=== PATIENT | male | born 1955 | race American Indian/Alaskan Native ===

== ENCOUNTER 2016-12-30 16:03 | Inpatient (IN) | payer BC, OTHER ==
[2016-12-30 17:07] LABS: Hematocrit 30.1 % (35.5-45.6); Hemoglobin 9.8 gm/dl (11.8-15.2); Mean Corpuscular HGB Conc 33 % (32-34); Mean Corpuscular Hemoglobin 27 pg (28-32); Mean Corpuscular Volume 84 fl (84-94); Platelet Count 259 K/mm3 (140-440); Red Blood Count 3.61 M/mm3 (3.65-5.03); Red Cell Distribution Width 17.4 % (13.2-15.2)
[2016-12-30 17:14] LABS: INR 1.2 (0.87-1.13); Partial Thromboplastin Time 32.6 Sec. (24.2-36.6)
--- NOTE | 2016-12-30 17:20 | Cat Scan Report ---
FINAL REPORT EXAM: CT HEAD/BRAIN WO CON HISTORY: neuro deficits \T\lt; 6hrs or sx present upon awakening TECHNIQUE: Standard unenhanced CT of the head at 5.0 millimeter axial increments PRIORS: None. FINDINGS: The ventricular system is normal in size and configuration. There is no evidence for parenchymal volume loss. There is no evidence for mass lesion, mass effect, midline shift, acute intracranial hemorrhage, or acute ischemia/ infarction. Visualized paranasal sinuses are clear. IMPRESSION: Negative CT of the head. No acute intracranial process noted.
[2016-12-30 17:25] LABS: BUN/Creatinine Ratio 16.36; Calcium 9.6 mg/dL (8.4-10.2); Chloride 98.5 mmol/L (98-107); Potassium 4.2 mmol/L (3.6-5.0)
[2016-12-30] MEDS ORDERED: ROCEPHIN/NS 1 GM/50 ML 1 GM/50 ML BAG IV ONE (17:48)
[2016-12-30] MEDS ORDERED: TYLENOL PO ONE (17:48)
[2016-12-30] MEDS ORDERED: NACL 0.9% 1000 ML 1,000 ML IV ONE (17:48)
--- NOTE | 2016-12-30 17:49 | Emergency Department Report ---
ED General Adult HPI - General Chief complaint: Altered Mental Status Stated complaint: AMS Time Seen by Provider: 12/30/16 17:33 Source: patient, EMS (ems notes not available at time of chart dictation) Mode of arrival: Stretcher Limitations: Physical Limitation - History of Present Illness Initial comments: pmd: dr cody pmh: obesity, htn, chronic back pain CHAYO, non compliant with cpap/bipap this is a 61 year old male, previously unknown to me. He is brought to the hospital by EMS and family for weakness. As per verbal report from family, patient was altered and not acting like his normal self earlier on this afternoon. This has since resolved. Family reports patient is noncompliant with his CPAP/ BiPAP. The patient denies headache, neck pain, chest pain, abdominal pain and shortness of breath. He complains of chronic back pain. As per family, patient has been having increasing lower back pain over the past month. This has caused him to not eat or drink, he is not really getting out of the bed to urinate or defecate. Family reports the patient is urinating on himself because he does not want to walk to the bathroom. The patient does state that he has mild progressive leg pain, and no urinary or fecal retention/incontinence. There is no saddle anesthesia. The patient reports that his back pain is so intense that he does not want to move his legs. Symptoms are constant, they worse with physical exertion and movement. It decreased with rest. -: Gradual Location: back, left, right, lower extremity Quality: aching Consistency: constant Improves with: rest Worsens with: movement Associated Symptoms: fever/chills, loss of appetite, malaise, weakness - Related Data Home Medications Medication Instructions Recorded Confirmed Last Taken Allopurinol [Zyloprim] 100 mg PO QDAY 12/30/16 12/30/16 12/30/16 Carvedilol [Coreg] 25 mg PO BID 12/30/16 12/30/16 12/30/16 Lisinopril/Hydrochlorothiazide 1 tab PO QDAY 12/30/16 12/30/16 12/30/16 [Zestoretic 20-25 mg] Allergies Allergy/AdvReac Type Severity Reaction Status Date / Time Penicillins Allergy Itching Verified 12/30/16 16:36 ED Review of Systems ROS: Stated complaint: AMS Other details as noted in HPI Constitutional: fever Eyes: denies: vision change ENT: denies: epistaxis Respiratory: denies: cough Cardiovascular: denies: chest pain Gastrointestinal: denies: abdominal pain Genitourinary: as per HPI Musculoskeletal: back pain Skin: denies: lesions Neurological: as per HPI Psychiatric: anxiety ED Past Medical Hx - Past Medical History Hx Hypertension: Yes Additional medical history: CHAYO, chronic back pain - Social History Smoking Status: Never Smoker Substance Use Type: None - Medications Home Medications: Home Medications Medication Instructions Recorded Confirmed Last Taken Type Allopurinol [Zyloprim] 100 mg PO QDAY 12/30/16 12/30/16 12/30/16 History Carvedilol [Coreg] 25 mg PO BID 12/30/16 12/30/16 12/30/16 History Lisinopril/Hydrochlorothiazide 1 tab PO QDAY 12/30/16 12/30/16 12/30/16 History [Zestoretic 20-25 mg] ED Physical Exam - General Limitations: Physical Limitation General appearance: alert, in no apparent distress - Head Head exam: Present: atraumatic, normocephalic - Eye Eye exam: Present: normal appearance, EOMI. Absent: nystagmus - ENT ENT exam: Present: normal exam, normal orophraynx, mucous membranes moist, normal external ear exam - Neck Neck exam: Present: normal inspection, full ROM. Absent: tenderness, meningismus - Respiratory Respiratory exam: Present: normal lung sounds bilaterally. Absent: respiratory distress, wheezes, rales, rhonchi, stridor, chest wall tenderness - Cardiovascular Cardiovascular Exam: Present: normal rhythm, tachycardia, normal heart sounds. Absent: systolic murmur, diastolic murmur, rubs, gallop - GI/Abdominal GI/Abdominal exam: Present: soft, normal bowel sounds. Absent: distended, tenderness, guarding, rebound, rigid, pulsatile mass - Rectal Rectal exam: Present: normal inspection, normal rectal tone - exam: Present: normal inspection - Extremities Exam Extremities exam: Present: pedal edema, other (torsion and plantar flexion are intact bilaterally. Extensor hallucis longus is intact bilaterally. Compartments are soft.). Absent: calf tenderness - Back Exam Back exam: Present: normal inspection, paraspinal tenderness, vertebral tenderness - Neurological Exam Neurological exam: Present: alert, oriented X3, other (there is 5/5 strength in the bilateral upper extremities. Sensation intact to light touch and pinprick upper and lower extremities.) - Psychiatric Psychiatric exam: Present: anxious - Skin Skin exam: Present: warm, dry, intact, normal color. Absent: rash ED Course Vital Signs 12/30/16 12/30/16 12/30/16 16:21 16:29 16:30 Temperature 98.3 F Pulse Rate 118 H 111 H 111 H Respiratory 17 18 16 Rate Blood Pressure 140/79 140/79 140/79 O2 Sat by Pulse 100 100 100 Oximetry 12/30/16 12/30/16 12/30/16 16:40 16:45 16:50 Temperature Pulse Rate 101 H 114 H Respiratory 23 18 18 Rate Blood Pressure 143/89 148/78 O2 Sat by Pulse 100 99 100 Oximetry 12/30/16 12/30/16 12/30/16 17:10 17:20 17:30 Temperature Pulse Rate 105 H 113 H 108 H Respiratory 26 H 22 31 H Rate Blood Pressure 148/78 117/74 117/74 O2 Sat by Pulse 100 100 99 Oximetry 12/30/16 12/30/16 12/30/16 17:40 17:50 18:00 Temperature Pulse Rate 107 H Respiratory 24 Rate Blood Pressure 117/74 117/74 124/79 O2 Sat by Pulse 100 100 100 Oximetry 12/30/16 12/30/16 12/30/16 18:10 18:13 18:20 Temperature 102.0 F H Pulse Rate Respiratory Rate Blood Pressure 129/79 136/76 O2 Sat by Pulse 100 99 Oximetry 12/30/16 19:23 Temperature Pulse Rate 97 H Respiratory 24 Rate Blood Pressure 136/76 O2 Sat by Pulse 100 Oximetry - Reevaluation(s) Reevaluation #1: 12/30/16 18:48 Differential diagnosis: Spinal fracture, discitis, pyelonephritis, renal failure , rhabdomyolysis, epidural abscess Assessment and plan: 61-year-old male with subacute back pain, progressive functionality, found to be in renal insufficiency, with mild myositis. Symptoms have been going on for approximately a week to 2 weeks, and they're getting worse. Patient states he does not know what his penicillin allergy is, states he was not able to take it since he was a child for unknown reasons. Has not had ceftriaxone in the past. As a third-generation cephalosporin, I think it is very unlikely the patient would be allergic/intolerant to ceftriaxone, even with a true penicillin allergy. IV fluids, acetaminophen ordered, ceftriaxone ordered. CT scan of the head is negative, chest x-ray is negative, urinalysis is pending. Given acute renal failure, Meyer catheter is ordered. A noncontrast CT scan of the abdomen and pelvis is pending to assess for fracture. Urinalysis is pending. 12/30/16 18:50 12/30/16 19:49 Reevaluation #2: 12/30/16 19:49 CT scan of the abdomen and pelvis demonstrates no discitis, or spinal fracture. There is severe osteoarthritis and collapse of the right femoral head. Patient has sensation intact to light touch, pinprick and proprioception in the lower extremities. He is able to lift the left lower extremity against gravity , although it is quite painful. When the right lower extremity is supported, he is able to flex and extend the knee. Given these physical exam findings, CT scan findings, patient's back pain is most likely coming from his severe arthritis and hip disease. Given this, and his neurologic exam, I think epidural compression syndrome and epidural abscess are very unlikely. I will defer to inpatient team to contact orthopedics for consultation. Case is discussed with the Hospital physician, Dr. Johnson, who accepts the patient to his service. Patient to be admitted for acute renal failure, myositis, inability to ambulate, acute febrile illness. - EJ/Peripheral Line Neck L Time Out Performed: Yes Indications: multiple IV sites needed Skin Cleansed in Sterile Fashion: Yes Size: 18 Dressing Placed: Tegaderm Patient Tolerated Procedure: well ED Medical Decision Making - Lab Data Result diagrams: 01/02/17 06:25 01/02/17 06:25 Vital Signs 12/30/16 12/30/16 12/30/16 16:29 16:45 18:13 Temperature 98.3 F 102.0 F H Pulse Rate 111 H Respiratory 18 18 Rate Blood Pressure 140/79 O2 Sat by Pulse 100 99 Oximetry Lab Results 12/30/16 12/30/16 12/30/16 Range/Units 16:46 16:46 16:46 WBC 19.0 H (4.5-11.0) K/mm3 RBC 3.61 L (3.65-5.03) M/mm3 Hgb 9.8 L (11.8-15.2) gm/dl Hct 30.1 L (35.5-45.6) % MCV 84 (84-94) fl MCH 27 L (28-32) pg MCHC 33 (32-34) % RDW 17.4 H (13.2-15.2) % Plt Count 259 (140-440) K/mm3 Add Manual Diff Complete Total Counted 100 Seg Neuts % (Manual) 87.0 H (40.0-70.0) % Band Neutrophils % 0 % Lymphocytes % (Manual) 6.0 L (13.4-35.0) % Reactive Lymphs % (Man) 0 % Monocytes % (Manual) 7.0 (0.0-7.3) % Eosinophils % (Manual) 0 (0.0-4.3) % Basophils % (Manual) 0 (0.0-1.8) % Metamyelocytes % 0 % Myelocytes % 0 % Promyelocytes % 0 % Blast Cells % 0 % Nucleated RBC % Not Reportable Seg Neutrophils # Man 16.5 H (1.8-7.7) K/mm3 Band Neutrophils # 0.0 K/mm3 Lymphocytes # (Manual) 1.1 L (1.2-5.4) K/mm3 Abs React Lymphs (Man) 0.0 K/mm3 Monocytes # (Manual) 1.3 H (0.0-0.8) K/mm3 Eosinophils # (Manual) 0.0 (0.0-0.4) K/mm3 Basophils # (Manual) 0.0 (0.0-0.1) K/mm3 Metamyelocytes # 0.0 K/mm3 Myelocytes # 0.0 K/mm3 Promyelocytes # 0.0 K/mm3 Blast Cells # 0.0 K/mm3 WBC Morphology Not Reportable Hypersegmented Neuts Not Reportable Hyposegmented Neuts Not Reportable Hypogranular Neuts Not Reportable Smudge Cells Not Reportable Toxic Granulation Not Reportable Toxic Vacuolation Not Reportable Dohle Bodies Not Reportable Pelger-Huet Anomaly Not Reportable Isabella Rods Not Reportable Platelet Estimate Appears normal Clumped Platelets Not Reportable Plt Clumps, EDTA Not Reportable Large Platelets Not Reportable Giant Platelets Not Reportable Platelet Satelliting Not Reportable Plt Morphology Comment Not Reportable RBC Morphology Not Reportable Dimorphic RBCs Not Reportable Polychromasia Not Reportable Hypochromasia Not Reportable Poikilocytosis Not Reportable Anisocytosis 2+ Microcytosis Not Reportable Macrocytosis Not Reportable Spherocytes Not Reportable Pappenheimer Bodies Not Reportable Sickle Cells Not Reportable Target Cells Not Reportable Tear Drop Cells Not Reportable Ovalocytes Not Reportable Helmet Cells Not Reportable Tariq-[place] Bodies Not Reportable [place] Rings Not Reportable Y[place] Cells Not Reportable Bite Cells Not Reportable Crenated Cell Not Reportable Elliptocytes Not Reportable Acanthocytes (Spur) Not Reportable Rouleaux Not Reportable Hemoglobin C Crystals Not Reportable Schistocytes Not Reportable Malaria parasites Not Reportable Philipp Bodies Not Reportable Hem Pathologist Commnt No PT 15.1 H (12.2-14.9) Sec. INR 1.20 H (0.87-1.13) APTT 32.6 (24.2-36.6) Sec. Thrombin Time (15.1-19.6) Sec. Sodium 140 (137-145) mmol/L Carbon Dioxide 22 (22-30) mmol/L BUN 36 H (9-20) mg/dL Creatinine 2.2 H (0.8-1.5) mg/dL Estimated GFR 37 ml/min BUN/Creatinine Ratio 16.36 % Glucose 107 H (75-100) mg/dL Calcium 9.6 (8.4-10.2) mg/dL Total Bilirubin (0.1-1.2) mg/dL Direct Bilirubin (0-0.2) mg/dL Indirect Bilirubin mg/dL AST (5-40) units/L ALT (7-56) units/L Alkaline Phosphatase (35-129) units/L Total Creatine Kinase (55-170) units/L Troponin T 0.016 (0.00-0.029) ng/mL Total Protein (6.3-8.2) g/dL Albumin (3.9-5) g/dL Albumin/Globulin Ratio % 12/30/16 12/30/16 Range/Units 16:46 18:10 WBC (4.5-11.0) K/mm3 RBC (3.65-5.03) M/mm3 Hgb (11.8-15.2) gm/dl Hct (35.5-45.6) % MCV (84-94) fl MCH (28-32) pg MCHC (32-34) % RDW (13.2-15.2) % Plt Count (140-440) K/mm3 Add Manual Diff Total Counted Seg Neuts % (Manual) (40.0-70.0) % Band Neutrophils % % Lymphocytes % (Manual) (13.4-35.0) % Reactive Lymphs % (Man) % Monocytes % (Manual) (0.0-7.3) % Eosinophils % (Manual) (0.0-4.3) % Basophils % (Manual) (0.0-1.8) % Metamyelocytes % % Myelocytes % % Promyelocytes % % Blast Cells % % Nucleated RBC % Seg Neutrophils # Man (1.8-7.7) K/mm3 Band Neutrophils # K/mm3 Lymphocytes # (Manual) (1.2-5.4) K/mm3 Abs React Lymphs (Man) K/mm3 Monocytes # (Manual) (0.0-0.8) K/mm3 Eosinophils # (Manual) (0.0-0.4) K/mm3 Basophils # (Manual) (0.0-0.1) K/mm3 Metamyelocytes # K/mm3 Myelocytes # K/mm3 Promyelocytes # K/mm3 Blast Cells # K/mm3 WBC Morphology Hypersegmented Neuts Hyposegmented Neuts Hypogranular Neuts Smudge Cells Toxic Granulation Toxic Vacuolation Dohle Bodies Pelger-Huet Anomaly Isabella Rods Platelet Estimate Clumped Platelets Plt Clumps, EDTA Large Platelets Giant Platelets Platelet Satelliting Plt Morphology Comment RBC Morphology Dimorphic RBCs Polychromasia Hypochromasia Poikilocytosis Anisocytosis Microcytosis Macrocytosis Spherocytes Pappenheimer Bodies Sickle Cells Target Cells Tear Drop Cells Ovalocytes Helmet Cells Tariq-[place] Bodies [place] Rings Lauri Cells Bite Cells Crenated Cell Elliptocytes Acanthocytes (Spur) Rouleaux Hemoglobin C Crystals Schistocytes Malaria parasites Philipp Bodies Hem Pathologist Commnt PT (12.2-14.9) Sec. INR (0.87-1.13) APTT (24.2-36.6) Sec. Thrombin Time 20.6 H (15.1-19.6) Sec. Sodium (137-145) mmol/L Carbon Dioxide (22-30) mmol/L BUN (9-20) mg/dL Creatinine (0.8-1.5) mg/dL Estimated GFR ml/min BUN/Creatinine Ratio % Glucose (75-100) mg/dL Calcium (8.4-10.2) mg/dL Total Bilirubin 0.6 (0.1-1.2) mg/dL Direct Bilirubin 0.3 H (0-0.2) mg/dL Indirect Bilirubin 0.3 mg/dL AST 93 H (5-40) units/L ALT 51 (7-56) units/L Alkaline Phosphatase 72 (35-129) units/L Total Creatine Kinase 1151 H (55-170) units/L Troponin T (0.00-0.029) ng/mL Total Protein 8.1 (6.3-8.2) g/dL Albumin 2.5 L (3.9-5) g/dL Albumin/Globulin Ratio 0.4 % - EKG Data Rate: tachycardia - EKG Data 12/30/16 18:51 Sinus tachycardia, 109 bpm, normal intervals, normal axis, not morphologically consistent with STEMI. - Radiology Data Radiology results: report reviewed, image reviewed Noncontrast CAT scan of the head is negative. X-ray of the chest is negative Noncontrast CT scan of the abdomen and pelvis: No evidence for kidney stone. No evidence for ureter or bladder calculus. The liver, spleen, pancreas, gallbladder and adrenal glands appear unremarkable. No evidence for adenopathy is noted. The appendix is normal. Prostate is normal. The included portions of the lung bases appear expanded and clear. Bony structures show complete loss of joint space in the superior medial right hip with subchondral cyst formation and early flattening of the femoral head. Findings are consistent with severe arthritis. Critical care attestation.: If time is entered above; I have spent that time in minutes in the direct care of this critically ill patient, excluding procedure time. ED Disposition Clinical Impression: Renal failure, Inability to walk Disposition: OP ADMITTED IP TO THIS HOSP Is pt being admited?: Yes Condition: Fair
[2016-12-30 17:52] LABS: Basophils % (Manual) 0 % (0.0-1.8); Blastocytes % (Manual) 0 %; Eosinophils % (Manual) 0 % (0.0-4.3)
[2016-12-30 17:55] LABS: Anisocytosis 2+; Diff Status Complete
[2016-12-30 18:44] LABS: Albumin 2.5 g/dL (3.9-5); Albumin/Globulin Ratio 0.4 %; Bilirubin,Direct 0.3 mg/dL (0-0.2); Bilirubin,Indirect 0.3 mg/dL; Bilirubin,Total 0.6 mg/dL (0.1-1.2); Total Protein 8.1 g/dL (6.3-8.2)
[2016-12-30 19:12] LABS: Bilirubin,Urine NEG (Negative); Blood,Urine MOD (Negative); Ketones,Urine TR mg/dL (Negative); Leukocyte Esterase,Urine MOD (Negative); Mucus,Urine FEW /HPF; Nitrite,Urine NEG (Negative)
--- NOTE | 2016-12-30 19:37 | Cat Scan Report ---
FINAL REPORT EXAM: CT ABDOMEN PELVIS WO CON HISTORY: back pain fever TECHNIQUE: Unenhanced stone protocol CT of the abdomen and pelvis at 2.5 millimeter axial increments. Coronal and sagittal reconstruction was also performed. PRIORS: None. FINDINGS: There is no evidence for renal calculi or hydronephrosis. No evidence for ureteral or bladder calculus is seen. No evidence for renal or bladder mass is noted. There is a 1.5 cm low-density cyst off the lateral lower pole right kidney. The urinary bladder is collapsed containing a Meyer catheter balloon. Otherwise, within the limits of a noncontrast exam, the liver, spleen, pancreas, gallbladder, and adrenal glands are unremarkable. No evidence for retroperitoneal or pelvic lymphadenopathy is seen. The bowel loops have normal caliber. No fluid collection, inflammatory change, or free air is seen within the abdomen or pelvis. The appendix is normal. Within the pelvis, the prostate is normal. Images through the upper abdomen include the lung bases which are expanded and clear. Bony structures show complete loss of joint space in the superior medial right hip with subchondral cyst formation and early flattening of the femoral head identified. Findings are consistent with severe osteoarthritis. There is also moderate disc space narrowing L4-L5 and L5-S1. A mild levoscoliosis of the lumbar spine is noted. IMPRESSION: 1. No evidence for renal calculi or renal obstruction. 2. Cyst in the right kidney 3. Severe osteoarthritis of the right hip
--- NOTE | 2016-12-31 07:46 | Event Note ---
Date: 12/30/16 See H/p for 12/30 in reports Sepsis ARF HTN Gout
[2016-12-31] MEDS: NACL 0.9% 1000 ML 1,000 ML IV SCH (08:10)
--- NOTE | 2016-12-31 08:26 | History and Physical Report ---
CHIEF COMPLAINT: Severe weakness. HISTORY OF PRESENT ILLNESS: This 61-year-old male presents with severe weakness. Brought in by family. The patient was altered and not acting his usual self. The patient also has marked, progressive leg pain. No urinary incontinence. No fever, no chills. Bilateral leg pain worse with physical exertion. The patient is also on CPAP and BiPAP. The patient is noncompliant with the same. PAST MEDICAL HISTORY: Significant for hypertension, obstructive sleep apnea, chronic back pain and gout. CURRENT MEDICATIONS: Coreg 25 b.i.d., lisinopril/hydrochlorothiazide 20/25 daily, and allopurinol 100 mg p.o. daily. SOCIAL HISTORY: Does not smoke. No alcohol, no recreational drugs. PAST SURGICAL HISTORY: None. REVIEW OF SYSTEMS: Significant for feeling weak and altered sensorium. No chest pain. A 14-point review of systems done and otherwise negative. Of note, the patient has pedal edema. Nonfocal neurologic symptoms. PHYSICAL EXAMINATION: GENERAL: Elderly male, cooperative during examination. VITAL SIGNS: Temperature 98.3, pulse is 118, and respirations are 17, blood pressure 140/79. HEENT: Dry mucous membranes. NECK: Supple. No lymphadenopathy, no thyromegaly. LUNGS: Clear to auscultation and percussion. ABDOMEN: Soft and benign. No hepatosplenomegaly. No guarding, no rigidity. Hernial orifices are normal. EXTREMITIES: Good pedal pulses. No pedal edema. CENTRAL NERVOUS SYSTEM: altered sensorium. SKIN: Normal. LABORATORY DATA AND IMAGING STUDIES: The CAT scan of the head is negative. X-ray of the chest is negative. EKG shows sinus tachycardia, 109 per minute. White count is 19,000, H and H is 9.8 and 30.1, bands 0.0. INR is 1.2. BUN and creatinine 36 and 2.2, total creatinine kinase is 1151, albumin is 2.5. Urine does not show any infection. ASSESSMENT AND PLAN: 1. Acute renal failure. IV fluids for the time being. Renal consult. 2. Altered mental status, etiology unclear, possible sepsis. 3. Sepsis. The patient started on broad-spectrum antibiotics. The patient was given Rocephin the ER but we will change to IV Zosyn. 4. Hypertension. Continue antihypertensives. 5. Gout. We will hold allopurinol. 6. Deep venous thrombosis prophylaxis, Lovenox 40 mg subcutaneous daily. [facility]# [id number] JOSH/ANUPAMA
[2016-12-31] MEDS: NORCO 7.5/325 PO PRN ×2 (09:53→22:30)
--- NOTE | 2016-12-31 10:04 | XRay Report ---
AP CHEST: HISTORY: Stroke, neurological deficit AP view of the chest demonstrates a normal mediastinal and cardiac contour with clear lungs and normal bony and soft tissue structures. IMPRESSION: Unremarkable AP chest.
[2016-12-31] MEDS: ZOSYN/NS 4.5GM/100ML 4.5 GM/100 ML VIAL IV SCH ×3 (15:17→22:29)
--- NOTE | 2016-12-31 18:36 | Progress Note ---
Assessment and Plan Assessment and plan: 1. Sepsis - suspected on admission as he was febrile and had leukocytosis; but UA negative and CXR, CT abdomen, CT head with no changes c/w infectious process ; continue empiric antibiotic until infection completely r/o (obtain lumbar spine mRI - see discussion below) 2. Acute renal failure versus acute on chronic kidney disease - possible acute due to rhabdomyolysis secondary to prolong immobilization; give ivf and monitor bun/cr 3. Rhandomyolysis - see above; trend CPK 4. Back back with urinary incontinence - back pain worsened progressively in the last few months and associated incontinence in the last 2 weeks; CT adomen showing L4-L5 and L5-S1 disc narrowing; obtain MRI w/contrast to r/o cord compression/abscess; given renal function will give continuous ivf to limit contrast-induced nephropathy 5. Severe OA R hip - will need Ortho f/u 6. Normocytic anemia - as AST>ALT questionable alcohol use/?abuse; will check B12 and folate; differential - anemia of chronic inflammation or chronic kidney disease 7. DVT prophylaxis -heparin subcutaneous History Interval history: no fever since admitted, no complaints except for back pain; when specifically asked, stated that he is mostly laying in bed for the last 2 weeks and associated urinary incontinence Hospitalist Physical - Constitutional Vitals: Temp Pulse Resp BP Pulse Ox 97.9 F 84 20 120/76 97 12/31/16 16:00 12/31/16 16:00 12/31/16 16:00 12/31/16 16:00 12/31/16 08:00 General appearance: Present: no acute distress, obese - EENT Eyes: Present: PERRL, EOM intact. Absent: scleral icterus, conjunctival injection ENT: hearing intact, clear oral mucosa, no oropharyngeal erythema, no thrush - Neck Neck: Present: supple, normal ROM. Absent: masses or JVD - Respiratory Respiratory effort: normal Respiratory: bilateral: CTA, negative: rales, rhonchi, wheezing - Cardiovascular Rhythm: regular Heart Sounds: Present: S1 & S2. Absent: systolic murmur - Extremities Extremities: no ischemia - Abdominal General gastrointestinal: soft, non-tender, non-distended, normal bowel sounds - Integumentary Integumentary: Present: warm, dry. Absent: jaundice, rash - Psychiatric Psychiatric: appropriate mood/affect, cooperative - Neurologic Neurologic: other (bilateral lower extremity weakness) Results - Labs CBC & Chem 7: 12/30/16 16:46 12/30/16 16:46 Labs: Laboratory Last Values WBC 19.0 K/mm3 (4.5-11.0) H 12/30/16 16:46 RBC 3.61 M/mm3 (3.65-5.03) L 12/30/16 16:46 Hgb 9.8 gm/dl (11.8-15.2) L 12/30/16 16:46 Hct 30.1 % (35.5-45.6) L 12/30/16 16:46 MCV 84 fl (84-94) 12/30/16 16:46 MCH 27 pg (28-32) L 12/30/16 16:46 MCHC 33 % (32-34) 12/30/16 16:46 RDW 17.4 % (13.2-15.2) H 12/30/16 16:46 Plt Count 259 K/mm3 (140-440) 12/30/16 16:46 Add Manual Diff Complete 12/30/16 16:46 Total Counted 100 12/30/16 16:46 Seg Neuts % (Manual) 87.0 % (40.0-70.0) H 12/30/16 16:46 Band Neutrophils % 0 % 12/30/16 16:46 Lymphocytes % (Manual) 6.0 % (13.4-35.0) L 12/30/16 16:46 Reactive Lymphs % (Man) 0 % 12/30/16 16:46 Monocytes % (Manual) 7.0 % (0.0-7.3) 12/30/16 16:46 Eosinophils % (Manual) 0 % (0.0-4.3) 12/30/16 16:46 Basophils % (Manual) 0 % (0.0-1.8) 12/30/16 16:46 Metamyelocytes % 0 % 12/30/16 16:46 Myelocytes % 0 % 12/30/16 16:46 Promyelocytes % 0 % 12/30/16 16:46 Blast Cells % 0 % 12/30/16 16:46 Nucleated RBC % Not Reportable 12/30/16 16:46 Seg Neutrophils # Man 16.5 K/mm3 (1.8-7.7) H 12/30/16 16:46 Band Neutrophils # 0.0 K/mm3 12/30/16 16:46 Lymphocytes # (Manual) 1.1 K/mm3 (1.2-5.4) L 12/30/16 16:46 Abs React Lymphs (Man) 0.0 K/mm3 12/30/16 16:46 Monocytes # (Manual) 1.3 K/mm3 (0.0-0.8) H 12/30/16 16:46 Eosinophils # (Manual) 0.0 K/mm3 (0.0-0.4) 12/30/16 16:46 Basophils # (Manual) 0.0 K/mm3 (0.0-0.1) 12/30/16 16:46 Metamyelocytes # 0.0 K/mm3 12/30/16 16:46 Myelocytes # 0.0 K/mm3 12/30/16 16:46 Promyelocytes # 0.0 K/mm3 12/30/16 16:46 Blast Cells # 0.0 K/mm3 12/30/16 16:46 WBC Morphology Not Reportable 12/30/16 16:46 Hypersegmented Neuts Not Reportable 12/30/16 16:46 Hyposegmented Neuts Not Reportable 12/30/16 16:46 Hypogranular Neuts Not Reportable 12/30/16 16:46 Smudge Cells Not Reportable 12/30/16 16:46 Toxic Granulation Not Reportable 12/30/16 16:46 Toxic Vacuolation Not Reportable 12/30/16 16:46 Dohle Bodies Not Reportable 12/30/16 16:46 Pelger-Huet Anomaly Not Reportable 12/30/16 16:46 Isabella Rods Not Reportable 12/30/16 16:46 Platelet Estimate Appears normal 12/30/16 16:46 Clumped Platelets Not Reportable 12/30/16 16:46 Plt Clumps, EDTA Not Reportable 12/30/16 16:46 Large Platelets Not Reportable 12/30/16 16:46 Giant Platelets Not Reportable 12/30/16 16:46 Platelet Satelliting Not Reportable 12/30/16 16:46 Plt Morphology Comment Not Reportable 12/30/16 16:46 RBC Morphology Not Reportable 12/30/16 16:46 Dimorphic RBCs Not Reportable 12/30/16 16:46 Polychromasia Not Reportable 12/30/16 16:46 Hypochromasia Not Reportable 12/30/16 16:46 Poikilocytosis Not Reportable 12/30/16 16:46 Anisocytosis 2+ 12/30/16 16:46 Microcytosis Not Reportable 12/30/16 16:46 Macrocytosis Not Reportable 12/30/16 16:46 Spherocytes Not Reportable 12/30/16 16:46 Pappenheimer Bodies Not Reportable 12/30/16 16:46 Sickle Cells Not Reportable 12/30/16 16:46 Target Cells Not Reportable 12/30/16 16:46 Tear Drop Cells Not Reportable 12/30/16 16:46 Ovalocytes Not Reportable 12/30/16 16:46 Helmet Cells Not Reportable 12/30/16 16:46 [place] Bodies Not Reportable 12/30/16 16:46 [place] Rings Not Reportable 12/30/16 16:46 [place] Cells Not Reportable 12/30/16 16:46 Bite Cells Not Reportable 12/30/16 16:46 Crenated Cell Not Reportable 12/30/16 16:46 Elliptocytes Not Reportable 12/30/16 16:46 Acanthocytes (Spur) Not Reportable 12/30/16 16:46 Rouleaux Not Reportable 12/30/16 16:46 Hemoglobin C Crystals Not Reportable 12/30/16 16:46 Schistocytes Not Reportable 12/30/16 16:46 Malaria parasites Not Reportable 12/30/16 16:46 Philipp Bodies Not Reportable 12/30/16 16:46 Hem Pathologist Commnt No 12/30/16 16:46 PT 15.1 Sec. (12.2-14.9) H 12/30/16 16:46 INR 1.20 (0.87-1.13) H 12/30/16 16:46 APTT 32.6 Sec. (24.2-36.6) 12/30/16 16:46 Thrombin Time 20.6 Sec. (15.1-19.6) H 12/30/16 16:46 Sodium 140 mmol/L (137-145) 12/30/16 16:46 Carbon Dioxide 22 mmol/L (22-30) 12/30/16 16:46 BUN 36 mg/dL (9-20) H 12/30/16 16:46 Creatinine 2.2 mg/dL (0.8-1.5) H 12/30/16 16:46 Estimated GFR 37 ml/min 12/30/16 16:46 BUN/Creatinine Ratio 16.36 % 12/30/16 16:46 Glucose 107 mg/dL (75-100) H 12/30/16 16:46 Lactic Acid 1.6 mmol/L (0.7-2.0) 12/30/16 21:44 Calcium 9.6 mg/dL (8.4-10.2) 12/30/16 16:46 Total Bilirubin 0.6 mg/dL (0.1-1.2) 12/30/16 18:10 Direct Bilirubin 0.3 mg/dL (0-0.2) H 12/30/16 18:10 Indirect Bilirubin 0.3 mg/dL 12/30/16 18:10 AST 93 units/L (5-40) H 12/30/16 18:10 ALT 51 units/L (7-56) 12/30/16 18:10 Alkaline Phosphatase 72 units/L (35-129) 12/30/16 18:10 Total Creatine Kinase 1151 units/L (55-170) H 12/30/16 18:10 Troponin T 0.016 ng/mL (0.00-0.029) 12/30/16 16:46 Total Protein 8.1 g/dL (6.3-8.2) 12/30/16 18:10 Albumin 2.5 g/dL (3.9-5) L 12/30/16 18:10 Albumin/Globulin Ratio 0.4 % 12/30/16 18:10 Urine Color Yellow (Yellow) 12/30/16 18:07 Urine Turbidity Clear (Clear) 12/30/16 18:07 Urine pH 5.0 (5.0-7.0) 12/30/16 18:07 Ur Specific [place] 1.014 (1.003-1.030) 12/30/16 18:07 Urine Protein 30 mg/dl mg/dL (Negative) 12/30/16 18:07 Urine Glucose (UA) Neg mg/dL (Negative) 12/30/16 18:07 Urine Ketones Tr mg/dL (Negative) 12/30/16 18:07 Urine Blood Mod (Negative) 12/30/16 18:07 Urine Nitrite Neg (Negative) 12/30/16 18:07 Urine Bilirubin Neg (Negative) 12/30/16 18:07 Urine Urobilinogen 2.0 mg/dL (<2.0) 12/30/16 18:07 Ur Leukocyte Esterase Mod (Negative) 12/30/16 18:07 Urine WBC (Auto) 6.0 /HPF (0.0-6.0) 12/30/16 18:07 Urine RBC (Auto) 16.0 /HPF (0.0-6.0) 12/30/16 18:07 U Epithel Cells (Auto) 1.0 /HPF (0-13.0) 12/30/16 18:07 Urine Mucus Few /HPF 12/30/16 18:07 Plasma/Serum Alcohol < 0.01 gm% (0-0.07) 12/30/16 18:10 - Imaging and Cardiology Chest x-ray: image reviewed (no acute process) CT scan - abdomen: report reviewed (no renal calculi or obstruction; severe osteoarthritis right hip; L4-L5 L5-S1 disc space narrowing) CT Scan - head: report reviewed (no acute abnormality)
[2016-12-31] MEDS ORDERED: NACL 0.9% 1000 ML 1,000 ML IV SCH (19:00)
[2016-12-31] MEDS: HEPARIN SUB-Q SCH (22:31)
--- NOTE | 2017-01-01 00:37 | Admit Criteria Form ---
Admission Criteria Documentation: RENAL FAILURE, CHRONIC Clinical Indications for Admission to Inpatient Care (Place 'X' for any and all applicable criteria): Admission is indicated for ANY ONE of the following (1)(2)(3)(4)(5): [X ]I. Inpatient admission required rather than observation care (Use Renal Failure, Chronic: Observation Care Criteria as appropriate) because of ANY ONE of the following: [ ]a) Volume overload or uremic symptoms (eg, clinically significant pulmonary edema, hypertension, pericarditis, acidosis) too severe for, or not responsive (eg, for over 24 hours) to emergency department or observation care dialysis or treatment regimen (11) [ ]b) Hemodynamic instability that is severe or persistent [ ]c) Respiratory distress that is severe or persistent (11) [ ]d) Clinically significant electrolyte abnormality that requires inpatient care (eg,hyperkalemia with severe ECG findings)[B] [ ]e) Supplement O2 or respiratory therapy for over 24hrs that is performable only in acute inpatient setting [ ]f) Continuous IV infusion of anticoagulation, platelet inhibitor, vasoactive, or Antiarrhythmic medication (15), [ ]g) Pulmonary artery catheter monitoring [ ]h) Temporary pacemaker placement [ ]i) Emergent pericardiocentesis [X ]j) Other condition, treatment or monitoring requiring inpatient admission [ ]II. Unexplained syncope [A] [ ]III. Recurrent seizures [ ]IV. Severe infections not treatable in outpatient setting (eg, peritonitis)(9 ) [ ]V. Cardiac arrhythmias of immediate concern [ ]. Encephalopathy [ ]VII.Bleeding abnormalities (eg, platelet dysfunction) with active (eg, gastrointestinal) bleeding Extended stay beyond goal length of stay may be needed for (3)(4)(35)(36): [ ]a) Continuing uremic complications [ ]b) Comorbidities or complications The original [employer] content created by [employer] has been revised. The portions of the content which have been revised are identified through the use of italic text or in bold, and [email or web address] has neither reviewed nor approved the modified material. All other unmodified content is copyright [employer]. Please see references footnoted in the original [facility] edition 2016 Admission Criteria Met: Yes
[2017-01-01] MEDS: ZOSYN/NS 4.5GM/100ML 4.5 GM/100 ML VIAL IV SCH ×3 (05:55→21:21)
[2017-01-01] MEDS: HEPARIN SUB-Q SCH ×3 (05:56→21:21)
[2017-01-01] MEDS: NACL 0.9% 1000 ML 1,000 ML IV SCH (05:56)
[2017-01-01 07:25] LABS: Basophils % (Auto) 0.4 % (0.0-1.8); Eosinophils % (Auto) 1.2 % (0.0-4.3); Hematocrit 27.2 % (35.5-45.6); Hemoglobin 8.7 gm/dl (11.8-15.2); Mean Corpuscular HGB Conc 32 % (32-34); Mean Corpuscular Hemoglobin 27 pg (28-32); Mean Corpuscular Volume 83 fl (84-94); Platelet Count 278 K/mm3 (140-440); Red Blood Count 3.27 M/mm3 (3.65-5.03); Red Cell Distribution Width 18.1 % (13.2-15.2); White Blood Count 14.2 K/mm3 (4.5-11.0)
[2017-01-01 07:43] LABS: BUN/Creatinine Ratio 14.66; Calcium 8.8 mg/dL (8.4-10.2); Chloride 97.9 mmol/L (98-107); Potassium 3.9 mmol/L (3.6-5.0)
[2017-01-01] MEDS ORDERED: NACL ONE (13:52)
[2017-01-01] MEDS: NORCO 7.5/325 PO PRN (16:19)
--- NOTE | 2017-01-01 16:31 | Cat Scan Report ---
FINAL REPORT PROCEDURE: CT LUMBAR SPINE W CON TECHNIQUE: Consent was obtained. IV contrast was administered and axial sections as well as coronal and sagittal reformatted images were viewed through the lumbar spine. The patient is apparently unable to undergo MRI examination due to body habitus. HISTORY: back pain COMPARISON: None FINDINGS: The exam is limited due to poor signal to noise related to patient body habitus as well as off axis angle of axial slices relative to the intervertebral disc spaces somewhat limiting fine evaluation of stenosis. There is however noted a medial 1.5 centimeter left and lateral 1.6 centimeter right renal cyst. The visualized abdominal aorta is not aneurysmal. There is no ascites. No lymphadenopathy is seen. The imaged portions of the liver, pancreas, and adrenal glands are normal. Lumbar levoscoliosis is present. There is no CT evident acute vertebral body or posterior element fracture. There is no subluxation. There is a transitional vertebral body at the lumbosacral junction. For the purposes of this examination there is lumbarization of S1. S1/S2 demonstrates right and left posterior lateral disc osteophyte complex which in conjunction with facet DJD produces bilateral inferior neural foraminal stenosis. L5/S1 demonstrates a broad-based disc osteophyte complex. This in conjunction with facet DJD produces central canal and bilateral neural foraminal stenosis. 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 L4/L5 demonstrates central canal and right worse than left neural foraminal stenosis. Broad-based disc bulge, bilateral facet DJD and ligamentum flavum hypertrophy is present. 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 L3/L4 demonstrates a mild disc bulge, bilateral facet DJD and ligamentum flavum hypertrophy. The pedicles are congenitally short. Central canal and bilateral inferior neural foraminal stenosis is present. L2/L3 demonstrates a disc osteophyte complex eccentric to the right. There is bilateral facet DJD and ligamentum flavum hypertrophy. Central canal and right neural foraminal stenosis is present. L1/L2 demonstrates no stenosis. IMPRESSION: Limited examination due to poor signal to noise related to patient body habitus as well as off axis angle of axial slices relative to the intervertebral disc spaces somewhat limiting fine detail of stenosis. No CT evident vertebral body or posterior element fracture. Levoscoliosis. Transitional vertebral segment. Multilevel central canal and or foraminal stenosis as described above. Bilateral renal cysts.
--- NOTE | 2017-01-01 22:19 | Progress Note ---
Assessment and Plan Assessment and plan: 1. Sepsis - suspected on admission as he was febrile and had leukocytosis; but UA negative and CXR, CT abdomen, CT head with no changes c/w infectious process ; continue empiric antibiotic until infection completely r/o (lumbar spine MRI ordered to r/o besides cord compression, paravertebral abscess/osteomyelitis). WBC still elevated; reculture if febrile 2. Acute renal failure versus acute on chronic kidney disease - possible acute due to rhabdomyolysis secondary to prolong immobilization; continue ivf and monitor bun/cr; improving 3. Rhandomyolysis - CPK trended up despite iv hydration and improving renal function 4. Back back with urinary incontinence - back pain worsened progressively in the last few months and associated incontinence in the last 2 weeks; CT adomen showing L4-L5 and L5-S1 disc narrowing; lumbar spine MRI w/contrast ordered to r /o cord compression/abscess, but unobtainable due to patient's weight and body habitus; will obtain lumbar spine CT w/contrast; continue IV fluids to prevent/ eliminate contrast-induced nephropathy 5. Severe OA R hip - will need Ortho f/u 6. Normocytic anemia - as AST>ALT questionable alcohol use/?abuse (patient denies); possible due to fatty liver; B12 and folate pending Differential - anemia of chronic inflammation or chronic kidney disease 7. DVT prophylaxis -heparin subcutaneous History Interval history: lumbar spine MRI unable to be obtained, will schedule for CT Hospitalist Physical - Constitutional Vitals: Temp Pulse Resp BP Pulse Ox 100.1 F H 93 H 22 139/71 96 01/01/17 22:00 01/01/17 22:00 01/01/17 22:00 01/01/17 22:00 01/01/17 22:00 General appearance: Present: no acute distress, obese - EENT Eyes: Present: PERRL, EOM intact. Absent: scleral icterus, conjunctival injection - Neck Neck: Present: supple, normal ROM. Absent: masses or JVD - Respiratory Respiratory effort: normal Respiratory: bilateral: diminished (bibasilar), negative: rales, rhonchi, wheezing - Cardiovascular Rhythm: regular Heart Sounds: Present: S1 & S2. Absent: systolic murmur - Extremities Extremities: no ischemia - Integumentary Integumentary: Present: warm, dry. Absent: jaundice, rash - Psychiatric Psychiatric: cooperative - Neurologic Neurologic: moves all extremities (bilat LE weakness) Results - Labs CBC & Chem 7: 01/02/17 06:25 01/02/17 06:25 Labs: Laboratory Last Values WBC 14.2 K/mm3 (4.5-11.0) H 01/01/17 06:19 RBC 3.27 M/mm3 (3.65-5.03) L 01/01/17 06:19 Hgb 8.7 gm/dl (11.8-15.2) L 01/01/17 06:19 Hct 27.2 % (35.5-45.6) L 01/01/17 06:19 MCV 83 fl (84-94) L 01/01/17 06:19 MCH 27 pg (28-32) L 01/01/17 06:19 MCHC 32 % (32-34) 01/01/17 06:19 RDW 18.1 % (13.2-15.2) H 01/01/17 06:19 Plt Count 278 K/mm3 (140-440) 01/01/17 06:19 Lymph % (Auto) 6.4 % (13.4-35.0) L 01/01/17 06:19 [place] % (Auto) 10.8 % (0.0-7.3) H 01/01/17 06:19 Eos % (Auto) 1.2 % (0.0-4.3) 01/01/17 06:19 Baso % (Auto) 0.4 % (0.0-1.8) 01/01/17 06:19 Lymph # 0.9 K/mm3 (1.2-5.4) L 01/01/17 06:19 [place] # 1.5 K/mm3 (0.0-0.8) H 01/01/17 06:19 Eos # 0.2 K/mm3 (0.0-0.4) 01/01/17 06:19 Baso # 0.1 K/mm3 (0.0-0.1) 01/01/17 06:19 Add Manual Diff Complete 12/30/16 16:46 Total Counted 100 12/30/16 16:46 Seg Neutrophils % 81.2 % (40.0-70.0) H 01/01/17 06:19 Seg Neuts % (Manual) 87.0 % (40.0-70.0) H 12/30/16 16:46 Band Neutrophils % 0 % 12/30/16 16:46 Lymphocytes % (Manual) 6.0 % (13.4-35.0) L 12/30/16 16:46 Reactive Lymphs % (Man) 0 % 12/30/16 16:46 Monocytes % (Manual) 7.0 % (0.0-7.3) 12/30/16 16:46 Eosinophils % (Manual) 0 % (0.0-4.3) 12/30/16 16:46 Basophils % (Manual) 0 % (0.0-1.8) 12/30/16 16:46 Metamyelocytes % 0 % 12/30/16 16:46 Myelocytes % 0 % 12/30/16 16:46 Promyelocytes % 0 % 12/30/16 16:46 Blast Cells % 0 % 12/30/16 16:46 Nucleated RBC % Not Reportable 12/30/16 16:46 Seg Neutrophils # 11.5 K/mm3 (1.8-7.7) H 01/01/17 06:19 Seg Neutrophils # Man 16.5 K/mm3 (1.8-7.7) H 12/30/16 16:46 Band Neutrophils # 0.0 K/mm3 12/30/16 16:46 Lymphocytes # (Manual) 1.1 K/mm3 (1.2-5.4) L 12/30/16 16:46 Abs React Lymphs (Man) 0.0 K/mm3 12/30/16 16:46 Monocytes # (Manual) 1.3 K/mm3 (0.0-0.8) H 12/30/16 16:46 Eosinophils # (Manual) 0.0 K/mm3 (0.0-0.4) 12/30/16 16:46 Basophils # (Manual) 0.0 K/mm3 (0.0-0.1) 12/30/16 16:46 Metamyelocytes # 0.0 K/mm3 12/30/16 16:46 Myelocytes # 0.0 K/mm3 12/30/16 16:46 Promyelocytes # 0.0 K/mm3 12/30/16 16:46 Blast Cells # 0.0 K/mm3 12/30/16 16:46 WBC Morphology Not Reportable 12/30/16 16:46 Hypersegmented Neuts Not Reportable 12/30/16 16:46 Hyposegmented Neuts Not Reportable 12/30/16 16:46 Hypogranular Neuts Not Reportable 12/30/16 16:46 Smudge Cells Not Reportable 12/30/16 16:46 Toxic Granulation Not Reportable 12/30/16 16:46 Toxic Vacuolation Not Reportable 12/30/16 16:46 Dohle Bodies Not Reportable 12/30/16 16:46 Pelger-Huet Anomaly Not Reportable 12/30/16 16:46 Isabella Rods Not Reportable 12/30/16 16:46 Platelet Estimate Appears normal 12/30/16 16:46 Clumped Platelets Not Reportable 12/30/16 16:46 Plt Clumps, EDTA Not Reportable 12/30/16 16:46 Large Platelets Not Reportable 12/30/16 16:46 Giant Platelets Not Reportable 12/30/16 16:46 Platelet Satelliting Not Reportable 12/30/16 16:46 Plt Morphology Comment Not Reportable 12/30/16 16:46 RBC Morphology Not Reportable 12/30/16 16:46 Dimorphic RBCs Not Reportable 12/30/16 16:46 Polychromasia Not Reportable 12/30/16 16:46 Hypochromasia Not Reportable 12/30/16 16:46 Poikilocytosis Not Reportable 12/30/16 16:46 Anisocytosis 2+ 12/30/16 16:46 Microcytosis Not Reportable 12/30/16 16:46 Macrocytosis Not Reportable 12/30/16 16:46 Spherocytes Not Reportable 12/30/16 16:46 Pappenheimer Bodies Not Reportable 12/30/16 16:46 Sickle Cells Not Reportable 12/30/16 16:46 Target Cells Not Reportable 12/30/16 16:46 Tear Drop Cells Not Reportable 12/30/16 16:46 Ovalocytes Not Reportable 12/30/16 16:46 Helmet Cells Not Reportable 12/30/16 16:46 Tariq-[place] Bodies Not Reportable 12/30/16 16:46 [place] Rings Not Reportable 12/30/16 16:46 [place] Cells Not Reportable 12/30/16 16:46 Bite Cells Not Reportable 12/30/16 16:46 Crenated Cell Not Reportable 12/30/16 16:46 Elliptocytes Not Reportable 12/30/16 16:46 Acanthocytes (Spur) Not Reportable 12/30/16 16:46 Rouleaux Not Reportable 12/30/16 16:46 Hemoglobin C Crystals Not Reportable 12/30/16 16:46 Schistocytes Not Reportable 12/30/16 16:46 Malaria parasites Not Reportable 12/30/16 16:46 Philipp Bodies Not Reportable 12/30/16 16:46 Hem Pathologist Commnt No 12/30/16 16:46 PT 15.1 Sec. (12.2-14.9) H 12/30/16 16:46 INR 1.20 (0.87-1.13) H 12/30/16 16:46 APTT 32.6 Sec. (24.2-36.6) 12/30/16 16:46 Thrombin Time 20.6 Sec. (15.1-19.6) H 12/30/16 16:46 Sodium 137 mmol/L (137-145) 01/01/17 06:19 Potassium 3.9 mmol/L (3.6-5.0) 01/01/17 06:19 Chloride 97.9 mmol/L (98-107) L 01/01/17 06:19 Carbon Dioxide 22 mmol/L (22-30) 01/01/17 06:19 Anion Gap 21 mmol/L 01/01/17 06:19 BUN 22 mg/dL (9-20) H 01/01/17 06:19 Creatinine 1.5 mg/dL (0.8-1.5) 01/01/17 06:19 Estimated GFR 58 ml/min 01/01/17 06:19 BUN/Creatinine Ratio 14.66 % 01/01/17 06:19 Glucose 100 mg/dL (75-100) 01/01/17 06:19 Lactic Acid 1.6 mmol/L (0.7-2.0) 12/30/16 21:44 Calcium 8.8 mg/dL (8.4-10.2) 01/01/17 06:19 Total Bilirubin 0.6 mg/dL (0.1-1.2) 12/30/16 18:10 Direct Bilirubin 0.3 mg/dL (0-0.2) H 12/30/16 18:10 Indirect Bilirubin 0.3 mg/dL 12/30/16 18:10 AST 93 units/L (5-40) H 12/30/16 18:10 ALT 51 units/L (7-56) 12/30/16 18:10 Alkaline Phosphatase 72 units/L (35-129) 12/30/16 18:10 Total Creatine Kinase 1560 units/L (55-170) H 01/01/17 06:19 Troponin T 0.016 ng/mL (0.00-0.029) 12/30/16 16:46 Total Protein 8.1 g/dL (6.3-8.2) 12/30/16 18:10 Albumin 2.5 g/dL (3.9-5) L 12/30/16 18:10 Albumin/Globulin Ratio 0.4 % 12/30/16 18:10 Vitamin B12 928.9 pg/mL (211-911) H 01/01/17 06:19 Folate 6.12 ng/mL (7.3-26.0) L 01/01/17 06:19 Urine Color Yellow (Yellow) 12/30/16 18:07 Urine Turbidity Clear (Clear) 12/30/16 18:07 Urine pH 5.0 (5.0-7.0) 12/30/16 18:07 Ur Specific [place] 1.014 (1.003-1.030) 12/30/16 18:07 Urine Protein 30 mg/dl mg/dL (Negative) 12/30/16 18:07 Urine Glucose (UA) Neg mg/dL (Negative) 12/30/16 18:07 Urine Ketones Tr mg/dL (Negative) 12/30/16 18:07 Urine Blood Mod (Negative) 12/30/16 18:07 Urine Nitrite Neg (Negative) 12/30/16 18:07 Urine Bilirubin Neg (Negative) 12/30/16 18:07 Urine Urobilinogen 2.0 mg/dL (<2.0) 12/30/16 18:07 Ur Leukocyte Esterase Mod (Negative) 12/30/16 18:07 Urine WBC (Auto) 6.0 /HPF (0.0-6.0) 12/30/16 18:07 Urine RBC (Auto) 16.0 /HPF (0.0-6.0) 12/30/16 18:07 U Epithel Cells (Auto) 1.0 /HPF (0-13.0) 12/30/16 18:07 Urine Mucus Few /HPF 12/30/16 18:07 Plasma/Serum Alcohol < 0.01 gm% (0-0.07) 12/30/16 18:10
[2017-01-02] MEDS: NACL 0.9% 1000 ML 1,000 ML IV SCH (01:27)
[2017-01-02] MEDS: ZOSYN/NS 4.5GM/100ML 4.5 GM/100 ML VIAL IV SCH ×3 (05:48→22:49)
[2017-01-02] MEDS: HEPARIN SUB-Q SCH ×3 (05:49→22:44)
[2017-01-02 07:18] LABS: Basophils % (Auto) 0.2 % (0.0-1.8); Eosinophils % (Auto) 0.8 % (0.0-4.3); Hematocrit 26.8 % (35.5-45.6); Hemoglobin 8.5 gm/dl (11.8-15.2); Mean Corpuscular HGB Conc 32 % (32-34); Mean Corpuscular Hemoglobin 27 pg (28-32); Mean Corpuscular Volume 84 fl (84-94); Platelet Count 313 K/mm3 (140-440); Red Blood Count 3.18 M/mm3 (3.65-5.03); Red Cell Distribution Width 17.6 % (13.2-15.2); White Blood Count 14.3 K/mm3 (4.5-11.0)
[2017-01-02 07:44] LABS: Anion Gap 17 mmol/L; BUN/Creatinine Ratio 10.71; Blood Urea Nitrogen 15 mg/dL (9-20); Calcium 8.8 mg/dL (8.4-10.2); Carbon Dioxide 24 mmol/L (22-30); Chloride 100.5 mmol/L (98-107); Creatine Kinase 1428 units/L (55-170); Glucose 106 mg/dL (75-100); Potassium 3.9 mmol/L (3.6-5.0); Sodium 138 mmol/L (137-145)
[2017-01-02] MEDS: NORCO 7.5/325 PO PRN ×2 (13:45→18:57)
[2017-01-02] MEDS ORDERED: TYLENOL PO PRN (16:05)
--- NOTE | 2017-01-02 20:18 | Progress Note ---
Assessment and Plan Assessment and plan: 1. Sepsis - suspected on admission as he was febrile and had leukocytosis; but UA negative and CXR, CT abdomen, CT head with no changes c/w infectious process ; also CT lumbar spine with no findings s/o osteo/abscess; repeat n=blood cultures while febrile; continue empiric antibiotic until infection r/o 2. Acute renal failure versus acute on chronic kidney disease - possible acute due to rhabdomyolysis secondary to prolong immobilization; almost resolved with ivf 3. Rhandomyolysis - CPK started to slowly trend down 4. Back back with urinary incontinence - back pain worsened progressively in the last few months and associated incontinence in the last 2 weeks; CT adomen showing L4-L5 and L5-S1 disc narrowing; lumbar spine MRI w/contrast ordered to r /o cord compression/abscess, but unobtainable due to patient's weight and body habitus; CT lumbar spine showed multilevel central canal and bilat neural foraminal stenosis. Discussed with Dr. Leija, neurosurgeon, who would like to obtain an open MRI as this is the gold standard test; will discuss with case management 5. Severe OA R hip - will need Ortho f/u 6. Normocytic anemia - as AST>ALT questionable alcohol use/?abuse (patient denies); possible due to fatty liver; B12 within normal limits, but folate low , so will start supplementation Differential - anemia of chronic inflammation or chronic kidney disease 7. DVT prophylaxis -heparin subcutaneous History Interval history: lc/o back pain aggravated by any movment spiked low grade fever 100.1, 100.7 Hospitalist Physical - Constitutional Vitals: Temp Pulse Resp BP Pulse Ox 101.4 F H 99 H 14 141/78 99 01/02/17 19:09 01/02/17 15:07 01/02/17 15:07 01/02/17 15:07 01/02/17 15:07 General appearance: Present: no acute distress, obese (morbidly) - EENT Eyes: Present: PERRL, EOM intact. Absent: scleral icterus, conjunctival injection - Neck Neck: Present: supple, normal ROM. Absent: masses or JVD - Respiratory Respiratory effort: normal Respiratory: bilateral: diminished, negative: rhonchi, wheezing - Cardiovascular Rhythm: other (tachycardic) Heart Sounds: Present: S1 & S2. Absent: systolic murmur - Extremities Extremities: no ischemia - Abdominal General gastrointestinal: soft, non-tender, non-distended, normal bowel sounds - Integumentary Integumentary: Present: warm, dry. Absent: jaundice, rash - Psychiatric Psychiatric: cooperative - Neurologic Neurologic: moves all extremities (but strenght 3/5 LE bilat) Results - Labs CBC & Chem 7: 01/02/17 06:25 01/02/17 06:25 Labs: Laboratory Last Values WBC 14.3 K/mm3 (4.5-11.0) H 01/02/17 06:25 RBC 3.18 M/mm3 (3.65-5.03) L 01/02/17 06:25 Hgb 8.5 gm/dl (11.8-15.2) L 01/02/17 06:25 Hct 26.8 % (35.5-45.6) L 01/02/17 06:25 MCV 84 fl (84-94) 01/02/17 06:25 MCH 27 pg (28-32) L 01/02/17 06:25 MCHC 32 % (32-34) 01/02/17 06:25 RDW 17.6 % (13.2-15.2) H 01/02/17 06:25 Plt Count 313 K/mm3 (140-440) 01/02/17 06:25 Lymph % (Auto) 7.9 % (13.4-35.0) L 01/02/17 06:25 [place] % (Auto) 12.9 % (0.0-7.3) H 01/02/17 06:25 Eos % (Auto) 0.8 % (0.0-4.3) 01/02/17 06:25 Baso % (Auto) 0.2 % (0.0-1.8) 01/02/17 06:25 Lymph # 1.1 K/mm3 (1.2-5.4) L 01/02/17 06:25 [place] # 1.8 K/mm3 (0.0-0.8) H 01/02/17 06:25 Eos # 0.1 K/mm3 (0.0-0.4) 01/02/17 06:25 Baso # 0.0 K/mm3 (0.0-0.1) 01/02/17 06:25 Add Manual Diff Complete 12/30/16 16:46 Total Counted 100 12/30/16 16:46 Seg Neutrophils % 78.2 % (40.0-70.0) H 01/02/17 06:25 Seg Neuts % (Manual) 87.0 % (40.0-70.0) H 12/30/16 16:46 Band Neutrophils % 0 % 12/30/16 16:46 Lymphocytes % (Manual) 6.0 % (13.4-35.0) L 12/30/16 16:46 Reactive Lymphs % (Man) 0 % 12/30/16 16:46 Monocytes % (Manual) 7.0 % (0.0-7.3) 12/30/16 16:46 Eosinophils % (Manual) 0 % (0.0-4.3) 12/30/16 16:46 Basophils % (Manual) 0 % (0.0-1.8) 12/30/16 16:46 Metamyelocytes % 0 % 12/30/16 16:46 Myelocytes % 0 % 12/30/16 16:46 Promyelocytes % 0 % 12/30/16 16:46 Blast Cells % 0 % 12/30/16 16:46 Nucleated RBC % Not Reportable 12/30/16 16:46 Seg Neutrophils # 11.2 K/mm3 (1.8-7.7) H 01/02/17 06:25 Seg Neutrophils # Man 16.5 K/mm3 (1.8-7.7) H 12/30/16 16:46 Band Neutrophils # 0.0 K/mm3 12/30/16 16:46 Lymphocytes # (Manual) 1.1 K/mm3 (1.2-5.4) L 12/30/16 16:46 Abs React Lymphs (Man) 0.0 K/mm3 12/30/16 16:46 Monocytes # (Manual) 1.3 K/mm3 (0.0-0.8) H 12/30/16 16:46 Eosinophils # (Manual) 0.0 K/mm3 (0.0-0.4) 12/30/16 16:46 Basophils # (Manual) 0.0 K/mm3 (0.0-0.1) 12/30/16 16:46 Metamyelocytes # 0.0 K/mm3 12/30/16 16:46 Myelocytes # 0.0 K/mm3 12/30/16 16:46 Promyelocytes # 0.0 K/mm3 12/30/16 16:46 Blast Cells # 0.0 K/mm3 12/30/16 16:46 WBC Morphology Not Reportable 12/30/16 16:46 Hypersegmented Neuts Not Reportable 12/30/16 16:46 Hyposegmented Neuts Not Reportable 12/30/16 16:46 Hypogranular Neuts Not Reportable 12/30/16 16:46 Smudge Cells Not Reportable 12/30/16 16:46 Toxic Granulation Not Reportable 12/30/16 16:46 Toxic Vacuolation Not Reportable 12/30/16 16:46 Dohle Bodies Not Reportable 12/30/16 16:46 Pelger-Huet Anomaly Not Reportable 12/30/16 16:46 Isabella Rods Not Reportable 12/30/16 16:46 Platelet Estimate Appears normal 12/30/16 16:46 Clumped Platelets Not Reportable 12/30/16 16:46 Plt Clumps, EDTA Not Reportable 12/30/16 16:46 Large Platelets Not Reportable 12/30/16 16:46 Giant Platelets Not Reportable 12/30/16 16:46 Platelet Satelliting Not Reportable 12/30/16 16:46 Plt Morphology Comment Not Reportable 12/30/16 16:46 RBC Morphology Not Reportable 12/30/16 16:46 Dimorphic RBCs Not Reportable 12/30/16 16:46 Polychromasia Not Reportable 12/30/16 16:46 Hypochromasia Not Reportable 12/30/16 16:46 Poikilocytosis Not Reportable 12/30/16 16:46 Anisocytosis 2+ 12/30/16 16:46 Microcytosis Not Reportable 12/30/16 16:46 Macrocytosis Not Reportable 12/30/16 16:46 Spherocytes Not Reportable 12/30/16 16:46 Pappenheimer Bodies Not Reportable 12/30/16 16:46 Sickle Cells Not Reportable 12/30/16 16:46 Target Cells Not Reportable 12/30/16 16:46 Tear Drop Cells Not Reportable 12/30/16 16:46 Ovalocytes Not Reportable 12/30/16 16:46 Helmet Cells Not Reportable 12/30/16 16:46 [place] Bodies Not Reportable 12/30/16 16:46 [place] Rings Not Reportable 12/30/16 16:46 Lauri Cells Not Reportable 12/30/16 16:46 Bite Cells Not Reportable 12/30/16 16:46 Crenated Cell Not Reportable 12/30/16 16:46 Elliptocytes Not Reportable 12/30/16 16:46 Acanthocytes (Spur) Not Reportable 12/30/16 16:46 Rouleaux Not Reportable 12/30/16 16:46 Hemoglobin C Crystals Not Reportable 12/30/16 16:46 Schistocytes Not Reportable 12/30/16 16:46 Malaria parasites Not Reportable 12/30/16 16:46 Philipp Bodies Not Reportable 12/30/16 16:46 Hem Pathologist Commnt No 12/30/16 16:46 PT 15.1 Sec. (12.2-14.9) H 12/30/16 16:46 INR 1.20 (0.87-1.13) H 12/30/16 16:46 APTT 32.6 Sec. (24.2-36.6) 12/30/16 16:46 Thrombin Time 20.6 Sec. (15.1-19.6) H 12/30/16 16:46 Sodium 138 mmol/L (137-145) 01/02/17 06:25 Potassium 3.9 mmol/L (3.6-5.0) 01/02/17 06:25 Chloride 100.5 mmol/L (98-107) 01/02/17 06:25 Carbon Dioxide 24 mmol/L (22-30) 01/02/17 06:25 Anion Gap 17 mmol/L 01/02/17 06:25 BUN 15 mg/dL (9-20) 01/02/17 06:25 Creatinine 1.4 mg/dL (0.8-1.5) 01/02/17 06:25 Estimated GFR > 60 ml/min 01/02/17 06:25 BUN/Creatinine Ratio 10.71 % 01/02/17 06:25 Glucose 106 mg/dL (75-100) H 01/02/17 06:25 Lactic Acid 1.6 mmol/L (0.7-2.0) 12/30/16 21:44 Calcium 8.8 mg/dL (8.4-10.2) 01/02/17 06:25 Total Bilirubin 0.6 mg/dL (0.1-1.2) 12/30/16 18:10 Direct Bilirubin 0.3 mg/dL (0-0.2) H 12/30/16 18:10 Indirect Bilirubin 0.3 mg/dL 12/30/16 18:10 AST 93 units/L (5-40) H 12/30/16 18:10 ALT 51 units/L (7-56) 12/30/16 18:10 Alkaline Phosphatase 72 units/L (35-129) 12/30/16 18:10 Total Creatine Kinase 1428 units/L (55-170) H 01/02/17 06:25 Troponin T 0.016 ng/mL (0.00-0.029) 12/30/16 16:46 Total Protein 8.1 g/dL (6.3-8.2) 12/30/16 18:10 Albumin 2.5 g/dL (3.9-5) L 12/30/16 18:10 Albumin/Globulin Ratio 0.4 % 12/30/16 18:10 Vitamin B12 928.9 pg/mL (211-911) H 01/01/17 06:19 Folate 6.12 ng/mL (7.3-26.0) L 01/01/17 06:19 Urine Color Yellow (Yellow) 12/30/16 18:07 Urine Turbidity Clear (Clear) 12/30/16 18:07 Urine pH 5.0 (5.0-7.0) 12/30/16 18:07 Ur Specific [place] 1.014 (1.003-1.030) 12/30/16 18:07 Urine Protein 30 mg/dl mg/dL (Negative) 12/30/16 18:07 Urine Glucose (UA) Neg mg/dL (Negative) 12/30/16 18:07 Urine Ketones Tr mg/dL (Negative) 12/30/16 18:07 Urine Blood Mod (Negative) 12/30/16 18:07 Urine Nitrite Neg (Negative) 12/30/16 18:07 Urine Bilirubin Neg (Negative) 12/30/16 18:07 Urine Urobilinogen 2.0 mg/dL (<2.0) 12/30/16 18:07 Ur Leukocyte Esterase Mod (Negative) 12/30/16 18:07 Urine WBC (Auto) 6.0 /HPF (0.0-6.0) 12/30/16 18:07 Urine RBC (Auto) 16.0 /HPF (0.0-6.0) 12/30/16 18:07 U Epithel Cells (Auto) 1.0 /HPF (0-13.0) 12/30/16 18:07 Urine Mucus Few /HPF 12/30/16 18:07 Plasma/Serum Alcohol < 0.01 gm% (0-0.07) 12/30/16 18:10 - Imaging and Cardiology Imaging and Cardiology: CT lumbar spine
[2017-01-03] MEDS: NACL 0.9% 1000 ML 1,000 ML IV SCH ×2 (04:55→15:19)
[2017-01-03] MEDS: ZOSYN/NS 4.5GM/100ML 4.5 GM/100 ML VIAL IV SCH ×3 (05:29→22:37)
[2017-01-03] MEDS: HEPARIN SUB-Q SCH ×3 (05:30→22:38)
[2017-01-03] MEDS: NORCO 7.5/325 PO PRN ×2 (08:23→17:57)
--- NOTE | 2017-01-03 21:22 | Progress Note ---
Assessment and Plan Assessment and plan: 1. Sepsis - suspected on admission as he was febrile and had leukocytosis; but UA negative and CXR, CT abdomen, CT head with no changes c/w infectious process ; also CT lumbar spine with no findings s/o osteo/abscess; blood cultures repeated 3/ while febrile; continue empiric antibiotic coverage 2. Acute renal failure versus acute on chronic kidney disease - possible acute due to rhabdomyolysis secondary to prolong immobilization; resolved with ivf 3. Rhandomyolysis - CPK trending down with hydration 4. Back back with urinary incontinence - back pain worsened progressively in the last few months and associated incontinence in the last 2 weeks; CT adomen showing L4-L5 and L5-S1 disc narrowing; lumbar spine MRI w/contrast ordered to r /o cord compression/abscess, but unobtainable due to patient's weight and body habitus; CT lumbar spine showed multilevel central canal and bilat neural foraminal stenosis. Discussed with Dr. Leija, neurosurgeon, who would like to obtain an open MRI as this is the gold standard test; discussed with case management today and it seems that it is not possible and sugested/ requested transfer to another facility 5. Severe OA R hip - will need Ortho f/u 6. Normocytic anemia - as AST>ALT questionable alcohol use/?abuse (patient denies); possible due to fatty liver; B12 within normal limits, but folate low , so started on supplementation 7. DVT prophylaxis -heparin subcutaneous History Interval history: same, c/o back pain aggravated by leg movement Hospitalist Physical - Constitutional Vitals: Temp Pulse Resp BP Pulse Ox 99.7 F H 97 H 20 157/71 98 01/03/17 14:45 01/03/17 14:45 01/03/17 14:45 01/03/17 14:45 01/03/17 14:45 General appearance: Present: no acute distress, obese (morbidly) - EENT Eyes: Present: PERRL, EOM intact. Absent: scleral icterus, conjunctival injection - Neck Neck: Present: supple, normal ROM. Absent: masses or JVD - Respiratory Respiratory effort: normal Respiratory: bilateral: diminished, negative: rhonchi, wheezing - Cardiovascular Rhythm: other (tachycardic) Heart Sounds: Present: S1 & S2. Absent: systolic murmur - Extremities Extremities: no ischemia - Abdominal General gastrointestinal: soft, non-tender, non-distended, normal bowel sounds - Integumentary Integumentary: Present: warm, dry. Absent: jaundice, rash - Psychiatric Psychiatric: cooperative - Neurologic Neurologic: other (bilat LE weakness) Results - Labs CBC & Chem 7: 01/02/17 06:25 01/02/17 06:25 Labs: Laboratory Last Values WBC 14.3 K/mm3 (4.5-11.0) H 01/02/17 06:25 RBC 3.18 M/mm3 (3.65-5.03) L 01/02/17 06:25 Hgb 8.5 gm/dl (11.8-15.2) L 01/02/17 06:25 Hct 26.8 % (35.5-45.6) L 01/02/17 06:25 MCV 84 fl (84-94) 01/02/17 06:25 MCH 27 pg (28-32) L 01/02/17 06:25 MCHC 32 % (32-34) 01/02/17 06:25 RDW 17.6 % (13.2-15.2) H 01/02/17 06:25 Plt Count 313 K/mm3 (140-440) 01/02/17 06:25 Lymph % (Auto) 7.9 % (13.4-35.0) L 01/02/17 06:25 [place] % (Auto) 12.9 % (0.0-7.3) H 01/02/17 06:25 Eos % (Auto) 0.8 % (0.0-4.3) 01/02/17 06:25 Baso % (Auto) 0.2 % (0.0-1.8) 01/02/17 06:25 Lymph # 1.1 K/mm3 (1.2-5.4) L 01/02/17 06:25 [place] # 1.8 K/mm3 (0.0-0.8) H 01/02/17 06:25 Eos # 0.1 K/mm3 (0.0-0.4) 01/02/17 06:25 Baso # 0.0 K/mm3 (0.0-0.1) 01/02/17 06:25 Add Manual Diff Complete 12/30/16 16:46 Total Counted 100 12/30/16 16:46 Seg Neutrophils % 78.2 % (40.0-70.0) H 01/02/17 06:25 Seg Neuts % (Manual) 87.0 % (40.0-70.0) H 12/30/16 16:46 Band Neutrophils % 0 % 12/30/16 16:46 Lymphocytes % (Manual) 6.0 % (13.4-35.0) L 12/30/16 16:46 Reactive Lymphs % (Man) 0 % 12/30/16 16:46 Monocytes % (Manual) 7.0 % (0.0-7.3) 12/30/16 16:46 Eosinophils % (Manual) 0 % (0.0-4.3) 12/30/16 16:46 Basophils % (Manual) 0 % (0.0-1.8) 12/30/16 16:46 Metamyelocytes % 0 % 12/30/16 16:46 Myelocytes % 0 % 12/30/16 16:46 Promyelocytes % 0 % 12/30/16 16:46 Blast Cells % 0 % 12/30/16 16:46 Nucleated RBC % Not Reportable 12/30/16 16:46 Seg Neutrophils # 11.2 K/mm3 (1.8-7.7) H 01/02/17 06:25 Seg Neutrophils # Man 16.5 K/mm3 (1.8-7.7) H 12/30/16 16:46 Band Neutrophils # 0.0 K/mm3 12/30/16 16:46 Lymphocytes # (Manual) 1.1 K/mm3 (1.2-5.4) L 12/30/16 16:46 Abs React Lymphs (Man) 0.0 K/mm3 12/30/16 16:46 Monocytes # (Manual) 1.3 K/mm3 (0.0-0.8) H 12/30/16 16:46 Eosinophils # (Manual) 0.0 K/mm3 (0.0-0.4) 12/30/16 16:46 Basophils # (Manual) 0.0 K/mm3 (0.0-0.1) 12/30/16 16:46 Metamyelocytes # 0.0 K/mm3 12/30/16 16:46 Myelocytes # 0.0 K/mm3 12/30/16 16:46 Promyelocytes # 0.0 K/mm3 12/30/16 16:46 Blast Cells # 0.0 K/mm3 12/30/16 16:46 WBC Morphology Not Reportable 12/30/16 16:46 Hypersegmented Neuts Not Reportable 12/30/16 16:46 Hyposegmented Neuts Not Reportable 12/30/16 16:46 Hypogranular Neuts Not Reportable 12/30/16 16:46 Smudge Cells Not Reportable 12/30/16 16:46 Toxic Granulation Not Reportable 12/30/16 16:46 Toxic Vacuolation Not Reportable 12/30/16 16:46 Dohle Bodies Not Reportable 12/30/16 16:46 Pelger-Huet Anomaly Not Reportable 12/30/16 16:46 Isabella Rods Not Reportable 12/30/16 16:46 Platelet Estimate Appears normal 12/30/16 16:46 Clumped Platelets Not Reportable 12/30/16 16:46 Plt Clumps, EDTA Not Reportable 12/30/16 16:46 Large Platelets Not Reportable 12/30/16 16:46 Giant Platelets Not Reportable 12/30/16 16:46 Platelet Satelliting Not Reportable 12/30/16 16:46 Plt Morphology Comment Not Reportable 12/30/16 16:46 RBC Morphology Not Reportable 12/30/16 16:46 Dimorphic RBCs Not Reportable 12/30/16 16:46 Polychromasia Not Reportable 12/30/16 16:46 Hypochromasia Not Reportable 12/30/16 16:46 Poikilocytosis Not Reportable 12/30/16 16:46 Anisocytosis 2+ 12/30/16 16:46 Microcytosis Not Reportable 12/30/16 16:46 Macrocytosis Not Reportable 12/30/16 16:46 Spherocytes Not Reportable 12/30/16 16:46 Pappenheimer Bodies Not Reportable 12/30/16 16:46 Sickle Cells Not Reportable 12/30/16 16:46 Target Cells Not Reportable 12/30/16 16:46 Tear Drop Cells Not Reportable 12/30/16 16:46 Ovalocytes Not Reportable 12/30/16 16:46 Helmet Cells Not Reportable 12/30/16 16:46 [place]ari[place] Bodies Not Reportable 12/30/16 16:46 [place] Rings Not Reportable 12/30/16 16:46 Lauri Cells Not Reportable 12/30/16 16:46 Bite Cells Not Reportable 12/30/16 16:46 Crenated Cell Not Reportable 12/30/16 16:46 Elliptocytes Not Reportable 12/30/16 16:46 Acanthocytes (Spur) Not Reportable 12/30/16 16:46 Rouleaux Not Reportable 12/30/16 16:46 Hemoglobin C Crystals Not Reportable 12/30/16 16:46 Schistocytes Not Reportable 12/30/16 16:46 Malaria parasites Not Reportable 12/30/16 16:46 Philipp Bodies Not Reportable 12/30/16 16:46 Hem Pathologist Commnt No 12/30/16 16:46 PT 15.1 Sec. (12.2-14.9) H 12/30/16 16:46 INR 1.20 (0.87-1.13) H 12/30/16 16:46 APTT 32.6 Sec. (24.2-36.6) 12/30/16 16:46 Thrombin Time 20.6 Sec. (15.1-19.6) H 12/30/16 16:46 Sodium 138 mmol/L (137-145) 01/02/17 06:25 Potassium 3.9 mmol/L (3.6-5.0) 01/02/17 06:25 Chloride 100.5 mmol/L (98-107) 01/02/17 06:25 Carbon Dioxide 24 mmol/L (22-30) 01/02/17 06:25 Anion Gap 17 mmol/L 01/02/17 06:25 BUN 15 mg/dL (9-20) 01/02/17 06:25 Creatinine 1.4 mg/dL (0.8-1.5) 01/02/17 06:25 Estimated GFR > 60 ml/min 01/02/17 06:25 BUN/Creatinine Ratio 10.71 % 01/02/17 06:25 Glucose 106 mg/dL (75-100) H 01/02/17 06:25 Lactic Acid 1.6 mmol/L (0.7-2.0) 12/30/16 21:44 Calcium 8.8 mg/dL (8.4-10.2) 01/02/17 06:25 Total Bilirubin 0.6 mg/dL (0.1-1.2) 12/30/16 18:10 Direct Bilirubin 0.3 mg/dL (0-0.2) H 12/30/16 18:10 Indirect Bilirubin 0.3 mg/dL 12/30/16 18:10 AST 93 units/L (5-40) H 12/30/16 18:10 ALT 51 units/L (7-56) 12/30/16 18:10 Alkaline Phosphatase 72 units/L (35-129) 12/30/16 18:10 Total Creatine Kinase 1428 units/L (55-170) H 01/02/17 06:25 Troponin T 0.016 ng/mL (0.00-0.029) 12/30/16 16:46 Total Protein 8.1 g/dL (6.3-8.2) 12/30/16 18:10 Albumin 2.5 g/dL (3.9-5) L 12/30/16 18:10 Albumin/Globulin Ratio 0.4 % 12/30/16 18:10 Vitamin B12 928.9 pg/mL (211-911) H 01/01/17 06:19 Folate 6.12 ng/mL (7.3-26.0) L 01/01/17 06:19 Urine Color Yellow (Yellow) 12/30/16 18:07 Urine Turbidity Clear (Clear) 12/30/16 18:07 Urine pH 5.0 (5.0-7.0) 12/30/16 18:07 Ur Specific [place] 1.014 (1.003-1.030) 12/30/16 18:07 Urine Protein 30 mg/dl mg/dL (Negative) 12/30/16 18:07 Urine Glucose (UA) Neg mg/dL (Negative) 12/30/16 18:07 Urine Ketones Tr mg/dL (Negative) 12/30/16 18:07 Urine Blood Mod (Negative) 12/30/16 18:07 Urine Nitrite Neg (Negative) 12/30/16 18:07 Urine Bilirubin Neg (Negative) 12/30/16 18:07 Urine Urobilinogen 2.0 mg/dL (<2.0) 12/30/16 18:07 Ur Leukocyte Esterase Mod (Negative) 12/30/16 18:07 Urine WBC (Auto) 6.0 /HPF (0.0-6.0) 12/30/16 18:07 Urine RBC (Auto) 16.0 /HPF (0.0-6.0) 12/30/16 18:07 U Epithel Cells (Auto) 1.0 /HPF (0-13.0) 12/30/16 18:07 Urine Mucus Few /HPF 12/30/16 18:07 Plasma/Serum Alcohol < 0.01 gm% (0-0.07) 12/30/16 18:10
[2017-01-04] MEDS: ZOSYN/NS 4.5GM/100ML 4.5 GM/100 ML VIAL IV SCH ×3 (05:36→21:32)
[2017-01-04] MEDS: HEPARIN SUB-Q SCH ×3 (05:37→21:28)
[2017-01-04 08:29] LABS: Basophils % (Auto) 0.3 % (0.0-1.8); Eosinophils % (Auto) 0.7 % (0.0-4.3); Hematocrit 27.2 % (35.5-45.6); Hemoglobin 8.9 gm/dl (11.8-15.2); Mean Corpuscular HGB Conc 33 % (32-34); Mean Corpuscular Hemoglobin 27 pg (28-32); Mean Corpuscular Volume 84 fl (84-94); Platelet Count 435 K/mm3 (140-440); Red Blood Count 3.26 M/mm3 (3.65-5.03); White Blood Count 16.3 K/mm3 (4.5-11.0)
[2017-01-04 08:48] LABS: Anion Gap 18 mmol/L; BUN/Creatinine Ratio 8.46; Blood Urea Nitrogen 11 mg/dL (9-20); Carbon Dioxide 23 mmol/L (22-30); Chloride 100.3 mmol/L (98-107); Creatine Kinase 312 units/L (55-170); Glucose 112 mg/dL (75-100); Potassium 3.6 mmol/L (3.6-5.0); Sodium 138 mmol/L (137-145)
[2017-01-04] MEDS: FOLVITE PO SCH (09:27)
--- NOTE | 2017-01-04 09:41 | Consultation ---
History of Present Illness Consult date: 01/04/17 Chief complaint: Back pain History of present illness: 61 year old male with a chief complaint of low back pain that is worse since October. The pain is mostly across the back and does not radiate into the legs. The pain is worse with ambulation. He also had two episodes of incontinence since October described as not making it to the bathroom in time. He could sense the need to go but due to ambulation difficulties he ended up incontinent. He denies groin numbness. Admits to his legs feeling heavy and tight. Medications and Allergies Allergies Allergy/AdvReac Type Severity Reaction Status Date / Time Penicillins Allergy Itching Verified 12/30/16 16:36 Home Medications Medication Instructions Recorded Confirmed Last Taken Type Allopurinol [Zyloprim] 100 mg PO QDAY 12/30/16 12/30/16 12/30/16 History Carvedilol [Coreg] 25 mg PO BID 12/30/16 12/30/16 12/30/16 History Lisinopril/Hydrochlorothiazide 1 tab PO QDAY 12/30/16 12/30/16 12/30/16 History [Zestoretic 20-25 mg] Active Meds: Active Medications Acetaminophen (Tylenol) 650 mg PO Q6H PRN PRN Reason: Pain, Mild (1-3) Last Admin: 01/02/17 16:54 Dose: 650 mg Acetaminophen/Hydrocodone Bitart ([place] 7.5/325) 1 each PO Q6H PRN PRN Reason: Pain, Moderate (4-6) Last Admin: 01/03/17 17:57 Dose: 1 each Folic Acid (Folvite) 1 mg PO QDAY [facility] Last Admin: 01/04/17 09:27 Dose: 1 mg Heparin Sodium (Porcine) (Heparin) 5,000 unit SUB-Q Q8HR [facility] Last Admin: 01/04/17 05:37 Dose: 5,000 unit Sodium Chloride (Nacl 0.9% 1000 Ml) 1,000 mls @ 100 mls/hr IV DIRECT [facility] Last Admin: 01/03/17 15:19 Dose: 100 mls/hr Piperacillin Sod/Tazobactam Sod (Zosyn/Ns 4.5gm/100ml) 4.5 gm in 100 mls @ 200 mls/hr IV Q8HR [facility] PRN Reason: Protocol Last Admin: 01/04/17 05:36 Dose: 200 mls/hr Sodium Chloride (Nacl 0.9% 1000 Ml) 1,000 mls @ 100 mls/hr IV DIRECT [facility] Last Admin: 01/02/17 11:39 Dose: 100 mls/hr Physical Examination - Vital Signs Vital Signs: Vital Signs Pulse Resp BP Pulse Ox 118 H 17 140/79 100 12/30/16 16:21 12/30/16 16:21 12/30/16 16:21 12/30/16 16:21 - Physical Exam Narrative exam: Morbidly obese male lying in bed. Awake and oriented times 3 bilateral upper extremities 5/5 bilateral lower extremities with edema and 3-4/5 with much effort sensory intact reflexes diminished Results - Laboratory Findings CBC and BMP: 01/04/17 07:17 01/04/17 07:17 Abnormal Lab Findings: Abnormal Labs 01/01/17 01/01/17 01/01/17 06:19 06:19 06:19 WBC 14.2 H RBC 3.27 L Hgb 8.7 L Hct 27.2 L MCV 83 L MCH 27 L RDW 18.1 H Lymph % (Auto) 6.4 L [place] % (Auto) 10.8 H Lymph # 0.9 L [place] # 1.5 H Seg Neutrophils % 81.2 H Seg Neutrophils # 11.5 H Chloride 97.9 L BUN 22 H Glucose Total Creatine Kinase 1560 H Vitamin B12 928.9 H Folate 01/01/17 01/02/17 01/02/17 06:19 06:25 06:25 WBC 14.3 H RBC 3.18 L Hgb 8.5 L Hct 26.8 L MCV MCH 27 L RDW 17.6 H Lymph % (Auto) 7.9 L [place] % (Auto) 12.9 H Lymph # 1.1 L [place] # 1.8 H Seg Neutrophils % 78.2 H Seg Neutrophils # 11.2 H Chloride BUN Glucose 106 H Total Creatine Kinase 1428 H Vitamin B12 Folate 6.12 L 01/04/17 01/04/17 07:17 07:17 WBC 16.3 H RBC 3.26 L Hgb 8.9 L Hct 27.2 L MCV MCH 27 L RDW 18.0 H Lymph % (Auto) 6.0 L [place] % (Auto) 9.8 H Lymph # 1.0 L [place] # 1.6 H Seg Neutrophils % 83.2 H Seg Neutrophils # 13.5 H Chloride BUN Glucose 112 H Total Creatine Kinase 312 H Vitamin B12 Folate - Diagnostic Findings Additional findings: CT lumbar spine shows degenerative disc disease at L5/S1. No evidence of osteomyelitis or discitis. Assessment and Plan - Patient Problems (1) Lumbar degenerative disc disease Current Visit: Yes Status: Chronic Plan to address problem: No evidence of osteomyelitis to suggest infections. Can consider CT myelogram in lieu of MRI to confirm no cord compression but symptoms do not suggest cord compression. I recommend physical therapy and pain management as tolerated.
--- NOTE | 2017-01-04 14:05 | Progress Note ---
Assessment and Plan Assessment and plan: 1. Sepsis - suspected on admission as he was febrile and had leukocytosis; but UA negative and CXR, CT abdomen, CT head with no changes c/w infectious process ; also CT lumbar spine with no findings s/o osteo/abscess; blood cultures repeated 3/6 while febrile and negative at 24 hours; still spikes low grade fever; continue empiric antibiotic coverage 2. Acute renal failure versus acute on chronic kidney disease - possible acute due to rhabdomyolysis secondary to prolong immobilization; resolved with ivf 3. Rhandomyolysis - CPK trending down with hydration (300 today) 4. Back back with urinary incontinence - back pain worsened progressively in the last few months and associated incontinence in the last 2 weeks; CT adomen showing L4-L5 and L5-S1 disc narrowing; lumbar spine MRI w/contrast ordered to r /o cord compression/abscess, but unobtainable due to patient's weight and body habitus; CT lumbar spine showed multilevel central canal and bilat neural foraminal stenosis. Discussed with Dr. Leija, neurosurgeon, who would like to obtain an open MRI, but it is not possible; per her evaluation, there are no signs of acute cord compression and recommended CT myelogram, aswell as, PT and pain control medications 5. Severe OA R hip - will need Ortho f/u 6. Normocytic anemia - as AST>ALT questionable alcohol use/?abuse (patient denies); possible due to fatty liver; B12 within normal limits, but folate low , so started on supplementation 7. DVT prophylaxis -heparin subcutaneous History Interval history: same, c/o back pain aggravated by leg movement Hospitalist Physical - Constitutional Vitals: Temp Pulse Resp BP Pulse Ox 98.9 F 107 H 20 135/65 95 01/04/17 05:00 01/04/17 05:00 01/04/17 05:00 01/04/17 05:00 01/04/17 05:00 General appearance: Present: no acute distress, obese (morbidly) - EENT Eyes: Present: PERRL, EOM intact. Absent: scleral icterus, conjunctival injection - Neck Neck: Present: supple, normal ROM. Absent: masses or JVD - Respiratory Respiratory effort: normal Respiratory: bilateral: diminished (bibasilar), negative: rhonchi, wheezing - Cardiovascular Rhythm: regular Heart Sounds: Present: S1 & S2. Absent: systolic murmur - Extremities Extremities: no ischemia - Abdominal General gastrointestinal: soft, non-tender, non-distended, normal bowel sounds - Psychiatric Psychiatric: cooperative - Neurologic Neurologic: other (strenght 3/5 LE bilat) Results - Labs CBC & Chem 7: 01/04/17 07:17 01/04/17 07:17 Labs: Laboratory Last Values WBC 16.3 K/mm3 (4.5-11.0) H 01/04/17 07:17 RBC 3.26 M/mm3 (3.65-5.03) L 01/04/17 07:17 Hgb 8.9 gm/dl (11.8-15.2) L 01/04/17 07:17 Hct 27.2 % (35.5-45.6) L 01/04/17 07:17 MCV 84 fl (84-94) 01/04/17 07:17 MCH 27 pg (28-32) L 01/04/17 07:17 MCHC 33 % (32-34) 01/04/17 07:17 RDW 18.0 % (13.2-15.2) H 01/04/17 07:17 Plt Count 435 K/mm3 (140-440) 01/04/17 07:17 Lymph % (Auto) 6.0 % (13.4-35.0) L 01/04/17 07:17 [place] % (Auto) 9.8 % (0.0-7.3) H 01/04/17 07:17 Eos % (Auto) 0.7 % (0.0-4.3) 01/04/17 07:17 Baso % (Auto) 0.3 % (0.0-1.8) 01/04/17 07:17 Lymph # 1.0 K/mm3 (1.2-5.4) L 01/04/17 07:17 [place] # 1.6 K/mm3 (0.0-0.8) H 01/04/17 07:17 Eos # 0.1 K/mm3 (0.0-0.4) 01/04/17 07:17 Baso # 0.1 K/mm3 (0.0-0.1) 01/04/17 07:17 Add Manual Diff Complete 12/30/16 16:46 Total Counted 100 12/30/16 16:46 Seg Neutrophils % 83.2 % (40.0-70.0) H 01/04/17 07:17 Seg Neuts % (Manual) 87.0 % (40.0-70.0) H 12/30/16 16:46 Band Neutrophils % 0 % 12/30/16 16:46 Lymphocytes % (Manual) 6.0 % (13.4-35.0) L 12/30/16 16:46 Reactive Lymphs % (Man) 0 % 12/30/16 16:46 Monocytes % (Manual) 7.0 % (0.0-7.3) 12/30/16 16:46 Eosinophils % (Manual) 0 % (0.0-4.3) 12/30/16 16:46 Basophils % (Manual) 0 % (0.0-1.8) 12/30/16 16:46 Metamyelocytes % 0 % 12/30/16 16:46 Myelocytes % 0 % 12/30/16 16:46 Promyelocytes % 0 % 12/30/16 16:46 Blast Cells % 0 % 12/30/16 16:46 Nucleated RBC % Not Reportable 12/30/16 16:46 Seg Neutrophils # 13.5 K/mm3 (1.8-7.7) H 01/04/17 07:17 Seg Neutrophils # Man 16.5 K/mm3 (1.8-7.7) H 12/30/16 16:46 Band Neutrophils # 0.0 K/mm3 12/30/16 16:46 Lymphocytes # (Manual) 1.1 K/mm3 (1.2-5.4) L 12/30/16 16:46 Abs React Lymphs (Man) 0.0 K/mm3 12/30/16 16:46 Monocytes # (Manual) 1.3 K/mm3 (0.0-0.8) H 12/30/16 16:46 Eosinophils # (Manual) 0.0 K/mm3 (0.0-0.4) 12/30/16 16:46 Basophils # (Manual) 0.0 K/mm3 (0.0-0.1) 12/30/16 16:46 Metamyelocytes # 0.0 K/mm3 12/30/16 16:46 Myelocytes # 0.0 K/mm3 12/30/16 16:46 Promyelocytes # 0.0 K/mm3 12/30/16 16:46 Blast Cells # 0.0 K/mm3 12/30/16 16:46 WBC Morphology Not Reportable 12/30/16 16:46 Hypersegmented Neuts Not Reportable 12/30/16 16:46 Hyposegmented Neuts Not Reportable 12/30/16 16:46 Hypogranular Neuts Not Reportable 12/30/16 16:46 Smudge Cells Not Reportable 12/30/16 16:46 Toxic Granulation Not Reportable 12/30/16 16:46 Toxic Vacuolation Not Reportable 12/30/16 16:46 Dohle Bodies Not Reportable 12/30/16 16:46 Pelger-Huet Anomaly Not Reportable 12/30/16 16:46 Isabella Rods Not Reportable 12/30/16 16:46 Platelet Estimate Appears normal 12/30/16 16:46 Clumped Platelets Not Reportable 12/30/16 16:46 Plt Clumps, EDTA Not Reportable 12/30/16 16:46 Large Platelets Not Reportable 12/30/16 16:46 Giant Platelets Not Reportable 12/30/16 16:46 Platelet Satelliting Not Reportable 12/30/16 16:46 Plt Morphology Comment Not Reportable 12/30/16 16:46 RBC Morphology Not Reportable 12/30/16 16:46 Dimorphic RBCs Not Reportable 12/30/16 16:46 Polychromasia Not Reportable 12/30/16 16:46 Hypochromasia Not Reportable 12/30/16 16:46 Poikilocytosis Not Reportable 12/30/16 16:46 Anisocytosis 2+ 12/30/16 16:46 Microcytosis Not Reportable 12/30/16 16:46 Macrocytosis Not Reportable 12/30/16 16:46 Spherocytes Not Reportable 12/30/16 16:46 Pappenheimer Bodies Not Reportable 12/30/16 16:46 Sickle Cells Not Reportable 12/30/16 16:46 Target Cells Not Reportable 12/30/16 16:46 Tear Drop Cells Not Reportable 12/30/16 16:46 Ovalocytes Not Reportable 12/30/16 16:46 Helmet Cells Not Reportable 12/30/16 16:46 [place] Bodies Not Reportable 12/30/16 16:46 [place] Rings Not Reportable 12/30/16 16:46 Lauri Cells Not Reportable 12/30/16 16:46 Bite Cells Not Reportable 12/30/16 16:46 Crenated Cell Not Reportable 12/30/16 16:46 Elliptocytes Not Reportable 12/30/16 16:46 Acanthocytes (Spur) Not Reportable 12/30/16 16:46 Rouleaux Not Reportable 12/30/16 16:46 Hemoglobin C Crystals Not Reportable 12/30/16 16:46 Schistocytes Not Reportable 12/30/16 16:46 Malaria parasites Not Reportable 12/30/16 16:46 Philipp Bodies Not Reportable 12/30/16 16:46 Hem Pathologist Commnt No 12/30/16 16:46 PT 15.1 Sec. (12.2-14.9) H 12/30/16 16:46 INR 1.20 (0.87-1.13) H 12/30/16 16:46 APTT 32.6 Sec. (24.2-36.6) 12/30/16 16:46 Thrombin Time 20.6 Sec. (15.1-19.6) H 12/30/16 16:46 Sodium 138 mmol/L (137-145) 01/04/17 07:17 Potassium 3.6 mmol/L (3.6-5.0) 01/04/17 07:17 Chloride 100.3 mmol/L (98-107) 01/04/17 07:17 Carbon Dioxide 23 mmol/L (22-30) 01/04/17 07:17 Anion Gap 18 mmol/L 01/04/17 07:17 BUN 11 mg/dL (9-20) 01/04/17 07:17 Creatinine 1.3 mg/dL (0.8-1.5) 01/04/17 07:17 Estimated GFR > 60 ml/min 01/04/17 07:17 BUN/Creatinine Ratio 8.46 % 01/04/17 07:17 Glucose 112 mg/dL (75-100) H 01/04/17 07:17 Lactic Acid 1.6 mmol/L (0.7-2.0) 12/30/16 21:44 Calcium 9.0 mg/dL (8.4-10.2) 01/04/17 07:17 Total Bilirubin 0.6 mg/dL (0.1-1.2) 12/30/16 18:10 Direct Bilirubin 0.3 mg/dL (0-0.2) H 12/30/16 18:10 Indirect Bilirubin 0.3 mg/dL 12/30/16 18:10 AST 93 units/L (5-40) H 12/30/16 18:10 ALT 51 units/L (7-56) 12/30/16 18:10 Alkaline Phosphatase 72 units/L (35-129) 12/30/16 18:10 Total Creatine Kinase 312 units/L (55-170) H 01/04/17 07:17 Troponin T 0.016 ng/mL (0.00-0.029) 12/30/16 16:46 Total Protein 8.1 g/dL (6.3-8.2) 12/30/16 18:10 Albumin 2.5 g/dL (3.9-5) L 12/30/16 18:10 Albumin/Globulin Ratio 0.4 % 12/30/16 18:10 Vitamin B12 928.9 pg/mL (211-911) H 01/01/17 06:19 Folate 6.12 ng/mL (7.3-26.0) L 01/01/17 06:19 Urine Color Yellow (Yellow) 12/30/16 18:07 Urine Turbidity Clear (Clear) 12/30/16 18:07 Urine pH 5.0 (5.0-7.0) 12/30/16 18:07 Ur Specific [place] 1.014 (1.003-1.030) 12/30/16 18:07 Urine Protein 30 mg/dl mg/dL (Negative) 12/30/16 18:07 Urine Glucose (UA) Neg mg/dL (Negative) 12/30/16 18:07 Urine Ketones Tr mg/dL (Negative) 12/30/16 18:07 Urine Blood Mod (Negative) 12/30/16 18:07 Urine Nitrite Neg (Negative) 12/30/16 18:07 Urine Bilirubin Neg (Negative) 12/30/16 18:07 Urine Urobilinogen 2.0 mg/dL (<2.0) 12/30/16 18:07 Ur Leukocyte Esterase Mod (Negative) 12/30/16 18:07 Urine WBC (Auto) 6.0 /HPF (0.0-6.0) 12/30/16 18:07 Urine RBC (Auto) 16.0 /HPF (0.0-6.0) 12/30/16 18:07 U Epithel Cells (Auto) 1.0 /HPF (0-13.0) 12/30/16 18:07 Urine Mucus Few /HPF 12/30/16 18:07 Plasma/Serum Alcohol < 0.01 gm% (0-0.07) 12/30/16 18:10
[2017-01-04 16:29] LABS: INR 1.16 (0.87-1.13)
[2017-01-04 16:30] LABS: Partial Thromboplastin Time 36.7 Sec. (24.2-36.6)
[2017-01-04] MEDS: NACL 0.9% 1000 ML 1,000 ML IV SCH (18:41)
[2017-01-04] MEDS: NORCO 7.5/325 PO PRN (21:28)
[2017-01-05] MEDS: ZOSYN/NS 4.5GM/100ML 4.5 GM/100 ML VIAL IV SCH ×3 (06:00→21:51)
[2017-01-05] MEDS: HEPARIN SUB-Q SCH ×3 (06:29→21:50)
[2017-01-05] MEDS: NORCO 7.5/325 PO PRN ×2 (06:29→21:51)
[2017-01-05] MEDS: NACL 0.9% 1000 ML 1,000 ML IV SCH (06:38)
[2017-01-05] MEDS ORDERED: XYLOCAINE 1% 20 mL ONE (09:13)
[2017-01-05] MEDS: FOLVITE PO SCH (12:55)
--- NOTE | 2017-01-05 13:08 | Cat Scan Report ---
Post myelogram CT of the lumbar spine. Findings: There is a mixed injection with significant portion of the contrast in the epidural space. At the L1-2 level, there is mild broad-based disc bulge with no spinal stenosis. At the L2-3 level, there is a broad-based disc bulge eccentric to the right with posterior hypertrophic changes. There is disc space narrowing and bilateral facet joint DJD with mild hypertrophy of the ligamentum flavum. There is central canal stenosis. At the L3-4 level, there is a broad-based disc bulge with bilateral facet joint DJD and hypertrophy. There is mild hypertrophy of the ligamentum flavum with central canal stenosis. At L4-5, there is a moderate broad-based disc bulge with bilateral facet joint DJD and hypertrophy. There is also ligamentum flavum hypertrophy with resultant central canal stenosis. At the L5-S1 level, there is severe facet joint DJD and hypertrophy. A disc osteophyte complex is present centrally. There is bilateral foraminal stenosis. There is borderline central canal stenosis. There is a transitional vertebra at S1 with lumbarization of S1. The lumbar vertebra are normal in height and are normally aligned. The region of the conus is unremarkable. Impression: Multilevel spinal stenosis with extensive degenerative disc disease disc bulges and facet joint DJD and hypertrophy as detailed above. The examination is limited technically by the patient's body habitus and by the mixed injection described above. Please note that there is a transitional vertebra at S1. MRI of the lumbar spine may be useful if clinically appropriate.
--- NOTE | 2017-01-05 15:32 | Fluoroscopy Report ---
Lumbar myelogram. Procedure and findings: The study was difficult technically due to the patient's size. An extra long spinal needle was utilized. Fluoroscopic guidance was utilized. The first puncture at the L3 to 4 level yielded minimal CSF changed with blood. Centrally, I attempted to place the needle in the subarachnoid space at the L2-3 level. Minimal CSF appeared clear. Injection of contrast demonstrated a mixed injection. The patient was sent to CT for further imaging. Please refer to separate CT report.
--- NOTE | 2017-01-05 18:31 | Progress Note ---
Assessment and Plan Assessment and plan: 1. Sepsis - suspected on admission as he was febrile and had leukocytosis; but UA negative and CXR, CT abdomen, CT head with no changes c/w infectious process ; also CT lumbar spine with no findings s/o osteo/abscess; blood cultures repeated 3/6 while febrile and negative at 72 hours; afebrile in the last 36-48 hours; on empiric antibiotic coverage 2. Acute renal failure versus acute on chronic kidney disease - possible acute due to rhabdomyolysis secondary to prolong immobilization; resolved with ivf 3. Rhandomyolysis - CPK trending down with hydration 4. Back back with urinary incontinence - back pain worsened progressively in the last few months and associated incontinence in the last 2 weeks; CT adomen showing L4-L5 and L5-S1 disc narrowing; lumbar spine MRI w/contrast ordered to r /o cord compression/abscess, but unobtainable due to patient's weight and body habitus; CT lumbar spine showed multilevel central canal and bilat neural foraminal stenosis. Discussed with Dr. Leija, neurosurgeon, who would like to obtain an open MRI, but it is not possible; per her evaluation, there are no signs of acute cord compression and recommended CT myelogram, as well as , PT and pain control medications. CT myelogramobtained today and no additional information obtained Discussed with neurosurgeon at [facility] for transfer, but not accepted 5. Severe OA R hip - will need Ortho f/u 6. Normocytic anemia - B12 within normal limits, but folate low, so started on supplementation 7. DVT prophylaxis - heparin subcutaneous History Interval history: same, c/o back pain aggravated by leg movement; underwent lumbar spine myelogram this morning afebrile in the last 24 hours Hospitalist Physical - Constitutional Vitals: Temp Pulse Resp BP Pulse Ox 98.5 F 90 18 130/76 98 01/05/17 16:00 01/05/17 16:00 01/05/17 16:00 01/05/17 16:00 01/05/17 08:00 General appearance: Present: no acute distress, obese (morbidly) - EENT Eyes: Present: PERRL, EOM intact. Absent: scleral icterus, conjunctival injection - Neck Neck: Present: supple, normal ROM. Absent: masses or JVD - Respiratory Respiratory effort: normal Respiratory: bilateral: diminished (bibasilar), negative: rhonchi, wheezing - Cardiovascular Rhythm: regular Heart Sounds: Present: S1 & S2. Absent: systolic murmur - Extremities Extremities: no ischemia, abnormal - Abdominal General gastrointestinal: soft, non-tender, non-distended, normal bowel sounds - Integumentary Integumentary: Present: warm, dry. Absent: jaundice, rash - Psychiatric Psychiatric: cooperative - Neurologic Neurologic: other (DAMON marie 01/01) Results - Labs CBC & Chem 7: 01/04/17 07:17 01/04/17 07:17 Labs: Laboratory Last Values WBC 16.3 K/mm3 (4.5-11.0) H 01/04/17 07:17 RBC 3.26 M/mm3 (3.65-5.03) L 01/04/17 07:17 Hgb 8.9 gm/dl (11.8-15.2) L 01/04/17 07:17 Hct 27.2 % (35.5-45.6) L 01/04/17 07:17 MCV 84 fl (84-94) 01/04/17 07:17 MCH 27 pg (28-32) L 01/04/17 07:17 MCHC 33 % (32-34) 01/04/17 07:17 RDW 18.0 % (13.2-15.2) H 01/04/17 07:17 Plt Count 435 K/mm3 (140-440) 01/04/17 07:17 Lymph % (Auto) 6.0 % (13.4-35.0) L 01/04/17 07:17 [place] % (Auto) 9.8 % (0.0-7.3) H 01/04/17 07:17 Eos % (Auto) 0.7 % (0.0-4.3) 01/04/17 07:17 Baso % (Auto) 0.3 % (0.0-1.8) 01/04/17 07:17 Lymph # 1.0 K/mm3 (1.2-5.4) L 01/04/17 07:17 [place] # 1.6 K/mm3 (0.0-0.8) H 01/04/17 07:17 Eos # 0.1 K/mm3 (0.0-0.4) 01/04/17 07:17 Baso # 0.1 K/mm3 (0.0-0.1) 01/04/17 07:17 Add Manual Diff Complete 12/30/16 16:46 Total Counted 100 12/30/16 16:46 Seg Neutrophils % 83.2 % (40.0-70.0) H 01/04/17 07:17 Seg Neuts % (Manual) 87.0 % (40.0-70.0) H 12/30/16 16:46 Band Neutrophils % 0 % 12/30/16 16:46 Lymphocytes % (Manual) 6.0 % (13.4-35.0) L 12/30/16 16:46 Reactive Lymphs % (Man) 0 % 12/30/16 16:46 Monocytes % (Manual) 7.0 % (0.0-7.3) 12/30/16 16:46 Eosinophils % (Manual) 0 % (0.0-4.3) 12/30/16 16:46 Basophils % (Manual) 0 % (0.0-1.8) 12/30/16 16:46 Metamyelocytes % 0 % 12/30/16 16:46 Myelocytes % 0 % 12/30/16 16:46 Promyelocytes % 0 % 12/30/16 16:46 Blast Cells % 0 % 12/30/16 16:46 Nucleated RBC % Not Reportable 12/30/16 16:46 Seg Neutrophils # 13.5 K/mm3 (1.8-7.7) H 01/04/17 07:17 Seg Neutrophils # Man 16.5 K/mm3 (1.8-7.7) H 12/30/16 16:46 Band Neutrophils # 0.0 K/mm3 12/30/16 16:46 Lymphocytes # (Manual) 1.1 K/mm3 (1.2-5.4) L 12/30/16 16:46 Abs React Lymphs (Man) 0.0 K/mm3 12/30/16 16:46 Monocytes # (Manual) 1.3 K/mm3 (0.0-0.8) H 12/30/16 16:46 Eosinophils # (Manual) 0.0 K/mm3 (0.0-0.4) 12/30/16 16:46 Basophils # (Manual) 0.0 K/mm3 (0.0-0.1) 12/30/16 16:46 Metamyelocytes # 0.0 K/mm3 12/30/16 16:46 Myelocytes # 0.0 K/mm3 12/30/16 16:46 Promyelocytes # 0.0 K/mm3 12/30/16 16:46 Blast Cells # 0.0 K/mm3 12/30/16 16:46 WBC Morphology Not Reportable 12/30/16 16:46 Hypersegmented Neuts Not Reportable 12/30/16 16:46 Hyposegmented Neuts Not Reportable 12/30/16 16:46 Hypogranular Neuts Not Reportable 12/30/16 16:46 Smudge Cells Not Reportable 12/30/16 16:46 Toxic Granulation Not Reportable 12/30/16 16:46 Toxic Vacuolation Not Reportable 12/30/16 16:46 Dohle Bodies Not Reportable 12/30/16 16:46 Pelger-Huet Anomaly Not Reportable 12/30/16 16:46 Isabella Rods Not Reportable 12/30/16 16:46 Platelet Estimate Appears normal 12/30/16 16:46 Clumped Platelets Not Reportable 12/30/16 16:46 Plt Clumps, EDTA Not Reportable 12/30/16 16:46 Large Platelets Not Reportable 12/30/16 16:46 Giant Platelets Not Reportable 12/30/16 16:46 Platelet Satelliting Not Reportable 12/30/16 16:46 Plt Morphology Comment Not Reportable 12/30/16 16:46 RBC Morphology Not Reportable 12/30/16 16:46 Dimorphic RBCs Not Reportable 12/30/16 16:46 Polychromasia Not Reportable 12/30/16 16:46 Hypochromasia Not Reportable 12/30/16 16:46 Poikilocytosis Not Reportable 12/30/16 16:46 Anisocytosis 2+ 12/30/16 16:46 Microcytosis Not Reportable 12/30/16 16:46 Macrocytosis Not Reportable 12/30/16 16:46 Spherocytes Not Reportable 12/30/16 16:46 Pappenheimer Bodies Not Reportable 12/30/16 16:46 Sickle Cells Not Reportable 12/30/16 16:46 Target Cells Not Reportable 12/30/16 16:46 Tear Drop Cells Not Reportable 12/30/16 16:46 Ovalocytes Not Reportable 12/30/16 16:46 Helmet Cells Not Reportable 12/30/16 16:46 Tariq-[place] Bodies Not Reportable 12/30/16 16:46 [place] Rings Not Reportable 12/30/16 16:46 Lauri Cells Not Reportable 12/30/16 16:46 Bite Cells Not Reportable 12/30/16 16:46 Crenated Cell Not Reportable 12/30/16 16:46 Elliptocytes Not Reportable 12/30/16 16:46 Acanthocytes (Spur) Not Reportable 12/30/16 16:46 Rouleaux Not Reportable 12/30/16 16:46 Hemoglobin C Crystals Not Reportable 12/30/16 16:46 Schistocytes Not Reportable 12/30/16 16:46 Malaria parasites Not Reportable 12/30/16 16:46 Philipp Bodies Not Reportable 12/30/16 16:46 Hem Pathologist Commnt No 12/30/16 16:46 PT 14.7 Sec. (12.2-14.9) 01/04/17 15:44 INR 1.16 (0.87-1.13) H 01/04/17 15:44 APTT 36.7 Sec. (24.2-36.6) H 01/04/17 15:44 Thrombin Time 20.6 Sec. (15.1-19.6) H 12/30/16 16:46 Sodium 138 mmol/L (137-145) 01/04/17 07:17 Potassium 3.6 mmol/L (3.6-5.0) 01/04/17 07:17 Chloride 100.3 mmol/L (98-107) 01/04/17 07:17 Carbon Dioxide 23 mmol/L (22-30) 01/04/17 07:17 Anion Gap 18 mmol/L 01/04/17 07:17 BUN 11 mg/dL (9-20) 01/04/17 07:17 Creatinine 1.3 mg/dL (0.8-1.5) 01/04/17 07:17 Estimated GFR > 60 ml/min 01/04/17 07:17 BUN/Creatinine Ratio 8.46 % 01/04/17 07:17 Glucose 112 mg/dL (75-100) H 01/04/17 07:17 POC Glucose 121 (70-105) H 01/05/17 05:41 Lactic Acid 1.6 mmol/L (0.7-2.0) 12/30/16 21:44 Calcium 9.0 mg/dL (8.4-10.2) 01/04/17 07:17 Total Bilirubin 0.6 mg/dL (0.1-1.2) 12/30/16 18:10 Direct Bilirubin 0.3 mg/dL (0-0.2) H 12/30/16 18:10 Indirect Bilirubin 0.3 mg/dL 12/30/16 18:10 AST 93 units/L (5-40) H 12/30/16 18:10 ALT 51 units/L (7-56) 12/30/16 18:10 Alkaline Phosphatase 72 units/L (35-129) 12/30/16 18:10 Total Creatine Kinase 312 units/L (55-170) H 01/04/17 07:17 Troponin T 0.016 ng/mL (0.00-0.029) 12/30/16 16:46 Total Protein 8.1 g/dL (6.3-8.2) 12/30/16 18:10 Albumin 2.5 g/dL (3.9-5) L 12/30/16 18:10 Albumin/Globulin Ratio 0.4 % 12/30/16 18:10 Vitamin B12 928.9 pg/mL (211-911) H 01/01/17 06:19 Folate 6.12 ng/mL (7.3-26.0) L 01/01/17 06:19 Urine Color Yellow (Yellow) 12/30/16 18:07 Urine Turbidity Clear (Clear) 12/30/16 18:07 Urine pH 5.0 (5.0-7.0) 12/30/16 18:07 Ur Specific [place] 1.014 (1.003-1.030) 12/30/16 18:07 Urine Protein 30 mg/dl mg/dL (Negative) 12/30/16 18:07 Urine Glucose (UA) Neg mg/dL (Negative) 12/30/16 18:07 Urine Ketones Tr mg/dL (Negative) 12/30/16 18:07 Urine Blood Mod (Negative) 12/30/16 18:07 Urine Nitrite Neg (Negative) 12/30/16 18:07 Urine Bilirubin Neg (Negative) 12/30/16 18:07 Urine Urobilinogen 2.0 mg/dL (<2.0) 12/30/16 18:07 Ur Leukocyte Esterase Mod (Negative) 12/30/16 18:07 Urine WBC (Auto) 6.0 /HPF (0.0-6.0) 12/30/16 18:07 Urine RBC (Auto) 16.0 /HPF (0.0-6.0) 12/30/16 18:07 U Epithel Cells (Auto) 1.0 /HPF (0-13.0) 12/30/16 18:07 Urine Mucus Few /HPF 12/30/16 18:07 Plasma/Serum Alcohol < 0.01 gm% (0-0.07) 12/30/16 18:10
[2017-01-06] MEDS: ZOSYN/NS 4.5GM/100ML 4.5 GM/100 ML VIAL IV SCH ×2 (05:22→14:00)
[2017-01-06] MEDS: HEPARIN SUB-Q SCH ×2 (05:23→15:31)
[2017-01-06] MEDS: FOLVITE PO SCH (09:31)
--- NOTE | 2017-01-06 13:56 | Discharge Summary ---
Providers - Providers Date of Admission: 12/30/16 19:51 Date of discharge: 01/06/17 Attending physician: JENNIFER MARTINEZ 01/04/17 11:01 Physical Therapy Evaluation and Treat [CONS] Urgent Comment: Reason For Exam: back pain, difficult ambul Primary care physician: LEATHER SPRAYER Hospitalization Condition: Poor Disposition: DC/TX HOME UNDER HOME HEALTH Time spent for discharge: 35 min Core Measure Documentation - Palliative Care Palliative Care/ Comfort Measures: Not Applicable - Core Measures Any of the following diagnoses?: none Exam - Constitutional Vitals: Temp Pulse Resp BP Pulse Ox 98.4 F 92 H 20 132/78 97 01/06/17 08:00 01/06/17 08:00 01/06/17 08:00 01/06/17 08:00 01/06/17 08:00 Plan Activity: advance as tolerated, fall precautions Diet: low cholesterol, low salt Follow up with: PRIMARY CARE, [Primary Care Provider] - 3-5 Days Prescriptions: Folic Acid [Folvite] 1 mg PO QDAY #30 tablet HYDROcodone/APAP 7.5-325 [[place] 7.5-325 mg TAB] 1 each PO Q6H PRN #120 tablet PRN Reason: Pain, Moderate (4-6)
[2017-01-06 15:59] VITALS: BP 130/80
--- NOTE | 2017-01-09 16:35 | Admit Criteria Form ---
Admission Criteria Documentation: FEBRILE ILLNESS, WITHOUT FOCAL INFECTION Clinical Indications for Admission to Inpatient Care (Place 'X' for any and all applicable criteria): Admission is indicated for ANY ONE of the following (1)(2)(3): [ ] I. Bacteremia [ ]II. Suspected or identified specific infection requiring hospitalization (eg, meningitis, endocarditis) [ ]III. Hemodynamic instability [ ]IV. Altered mental status [ ]V. Failure or unavailability of outpatient antimicrobial treatment [ ]. Hypoxemia [ ]VII. Seizures [ ]VIII. High-risk febrile neutropenia [ ]IX. Need for parenteral antibiotic in patient who is likely to abuse vascular access device (eg, injection drug user) [A](7) [ ]X. Temperature greater than 104.9 degrees F (40.5 degrees C) (oral) [ X]XI. Inpatient admission required rather than observation care because of ANY ONE of the following: [ ]a) Specific infection identified that is too severe for outpatient treatment or observation care trial [ ]b) Metabolic disorder (eg, hypoglycemia, hyperglycemia, metabolic acidosis) that is severe or persistent [ ]c) Temperature greater than 103.1 degrees F (39.5 degrees C) ( oral) that is not responsive to observation care treatment [ ]d) IV fluid to replace significant ongoing (eg, for over 24 hours) losses (> 3 L/m2 per day) [ ]e) Supplemental oxygen or respiratory treatments for over 24 hours that is performable only in acute inpatient setting [ ]f) Parenteral nutrition regimen need that must be implemented on inpatient basis [ ]g) Strict or protective (eg, laminar flow) isolation [ X]h) Other condition, treatment or monitoring requiring inpatient admission Extended stay beyond goal length of stay may be needed for(1)(3) [ ]a) Sepsis or septic shock(22) [ ]b) Positive blood cultures [ ]c) Insufficient oral intake [ ]d) High-risk febrile neutropenia(29)(30) [ ]e) Continued fever and clinical instability [ ]f) Clinically active comorbid illness (e.g,heart failure, renal failure , diabetes) The original [facility] content created by [facility] has been revised. The portions of the content which have been revised are identified through the use of italic text or in bold, and [facility] has neither reviewed nor approved the modified material. All other unmodified content is copyright [facility]. Please see references footnoted in the original [facility] edition 2016
== END 2017-01-06 19:18 | disposition home health service (06) | DRG 871 ==
LOC: ED 16:03 → 3A 19:51
PROVIDERS: ADMIT Internal Medicine; ATTEND Internal Medicine
PROC: 5A09357 Assistance with Respiratory Ventilation, Less than 24 Consecutive Hours, Continuous Positive Airway Pressure (ICD-10-PCS; principal; 2016-12-31)
DX: A41.9 Sepsis, unspecified organism (principal); N17.0 Acute kidney failure with tubular necrosis; M62.82 Rhabdomyolysis; R26.2 Difficulty in walking, not elsewhere classified; G89.29 Other chronic pain; Z91.19 Patient's noncompliance with other medical treatment and regimen; G47.33 Obstructive sleep apnea (adult) (pediatric); M10.9 Gout, unspecified; I12.9 Hypertensive chronic kidney disease with stage 1 through stage 4 chronic kidney disease, or unspecified chronic kidney disease; N18.9 Chronic kidney disease, unspecified; M13.851 Other specified arthritis, right hip; D64.9 Anemia, unspecified; Z88.0 Allergy status to penicillin; M51.36 Other intervertebral disc degeneration, lumbar region
CPT/HCPCS: 36415; 62304; 70450; 71010; 72132; 74176; 80048; 80074; 80320; 81001; 82140; 82550; 82607; 82747; 82962; 84484; 85007; 85025; 85610; 85670; 85730; 87040; 87086; 93005; 93010; 96365; G0480; J0696; J1644; J2543; J7030; Q9965; Q9967

== ENCOUNTER 2017-01-17 14:05 | Inpatient (IN) | payer OTHER ==
[2017-01-17] MEDS ORDERED: NACL 0.9% 1000 ML 1,000 ML ONE (14:28)
[2017-01-17] MEDS ORDERED: NACL 0.9% 250ML 250 ML IV ONE (14:40)
--- NOTE | 2017-01-17 14:53 | Emergency Department Report ---
HPI - General Chief Complaint: Syncope Time Seen by Provider: 01/17/17 14:41 - HPI HPI: This is a 61-year-old Af[place] male who presents to the emergency department by EMS from home with complaint of some type of unconscious episode. The patient's sister found him on the floor unresponsive. His eyes rolled in the back of his head but they always remained open but he was unresponsive to anybody talking to him. At one point they felt as if he stopped breathing so they put him on to the ground completely and started chest compressions. At some point the patient regained consciousness and was able to identify his family members and his girlfriend but said that he did not remember passing out. Since that time the patient just complains of feeling slightly weak and feeling dehydrated. Patient presents with hypotension and says that he took his lisinopril and carvedilol this morning but he did not take any excess dosing. He has a history of gout, hypertension and chronic back pain for which she is supposed to have surgery in the near future. Patient's primary care doctor is Dr. Alpesh Nuñez. He denies any history of CT, CVA, PE/DVT. No recent travel or sick contacts at home. ED Past Medical Hx - Past Medical History Previous Medical History?: Yes Hx Hypertension: Yes Hx Congestive Heart Failure: No Hx Diabetes: Yes (boardlined, no medications) Hx Arthritis: Yes (rt hip) Hx Seizures: Yes (as a baby) Hx Asthma: No Hx COPD: No Hx HIV: No Additional medical history: CHAYO, chronic back pain - Surgical History Past Surgical History?: No - Social History Smoking Status: Never Smoker Substance Use Type: None - Medications Home Medications: Home Medications Medication Instructions Recorded Confirmed Last Taken Type Allopurinol [Zyloprim] 100 mg PO QDAY 12/30/16 01/17/17 12/30/16 History Carvedilol [Coreg] 25 mg PO BID 12/30/16 01/17/17 12/30/16 History Lisinopril/Hydrochlorothiazide 1 tab PO QDAY 12/30/16 01/17/17 12/30/16 History [Zestoretic 20-25 mg] Folic Acid [Folvite] 1 mg PO QDAY #30 tablet 01/06/17 01/17/17 Unknown Rx HYDROcodone/APAP 7.5-325 [[place] 1 each PO Q6HR PRN #120 tablet 01/06/17 Unknown Rx 7.5/325] ED Review of Systems ROS: Stated complaint: LOW BP Other details as noted in HPI Comment: All other systems reviewed and negative Constitutional: weakness. denies: chills, fever Eyes: denies: eye pain, eye discharge, vision change ENT: denies: ear pain, throat pain Respiratory: denies: cough, shortness of breath, wheezing Cardiovascular: syncope. denies: chest pain Gastrointestinal: nausea. denies: abdominal pain Genitourinary: denies: urgency, dysuria Musculoskeletal: denies: back pain, joint swelling, arthralgia Skin: denies: rash, lesions Neurological: weakness. denies: numbness, paresthesias Physical Exam - Physical Exam Vital Signs: Vital Signs 01/17/17 01/17/17 14:29 14:41 Temperature 97.8 F Pulse Rate 100 H Respiratory 18 18 Rate Blood Pressure 83/48 O2 Sat by Pulse 100 100 Oximetry Physical Exam: GENERAL: The patient is well-developed well-nourished. HEENT: Normocephalic. Atraumatic. Extraocular motions are intact. Patient has moist mucous membranes. Pupils equal reactive to light bilaterally. No nystagmus. NECK: Supple. Trachea is midline. CHEST/LUNGS: Clear to auscultation. There is no respiratory distress noted. HEART/CARDIOVASCULAR: Regular. There is no tachycardia. There is no gallop rub or murmur. ABDOMEN: Abdomen is soft, nontender. Patient has normal bowel sounds. There is no abdominal distention. Obese habitus. SKIN: Mild nonpitting swelling to the bilateral lower extremity. Skin is warm and dry. NEURO: The patient is awake, alert, and oriented. The patient is cooperative. The patient has no focal neurologic deficits. The patient has normal speech. Cranial nerves II through XII grossly intact. MUSCULOSKELETAL: There is no tenderness or deformity. There is no limitation range of motion. There is no evidence of acute injury. Cap refill less than 2 seconds. Radial pulses +2 over 4 bilaterally. ED Course Vital Signs 01/17/17 01/17/17 14:29 14:41 Temperature 97.8 F Pulse Rate 100 H Respiratory 18 18 Rate Blood Pressure 83/48 O2 Sat by Pulse 100 100 Oximetry - Central Line Placement Right IJ Consent Obtained: verbal consent Time Out Performed: Yes Patient Placed on Monitor/Pulse Ox: Yes Prep: mask, gown, gloves Central Line Prep: Chlorhexidine scrub Local Anesthesia Used: Lidocaine 1% Amount of Anesthesia Used (mls): 2 Ultrasound Used for Placement: Yes Central Line Lumen Inserted: triple Bloods Obtained for Lab: Yes Central Line Position: good blood return, all ports aspirated, flus, sutured in place with 3-0 Dressing Applied: Tegaderm, sterile gauze/tape Patient Tolerated Procedure: well Complications: none ED Medical Decision Making - Lab Data Result diagrams: 01/17/17 15:11 01/17/17 15:11 - EKG Data -: EKG Interpreted by Me (with sinus arrhythmia) EKG shows normal: sinus rhythm, axis, intervals, QRS complexes, ST-T waves (T- wave inversions to the lateral leads) Rate: normal - EKG Data When compared to previous EKG there are: previous EKG unavailable Interpretation: other (sinus arrhythmia, normal rate, normal axis, T-wave inversions to the lateral leads) - Radiology Data Radiology results: report reviewed, image reviewed interpreted by me: Chest x-ray did not show any acute process. Heart is normal shape and size. No effusions. No pneumothorax. No signs of pneumonia seen. Ventilation perfusion scan is negative for pulmonary embolism. - Medical Decision Making This is a 61-year-old male presents to the emergency department from home after a syncopal episode that could've been some type of seizure. Since patient is in the emergency department the patient has developed some hypotension. Patient was given a total of 2 L of IV fluid resuscitation and still continues to have some hypertension. For this reason a central line was placed in the right IJ under ultrasound guidance and the patient has been started on pressors. Despite the fact that the patient had some transient altered mental status that was either a syncope versus seizure versus other, the patient has been awake and alert in the emergency department and has no complaints of any headache or neurological deficits and therefore a CT of the head was not done. A chest x-ray was done that did not show any acute process. I felt that a PE needed to be ruled out so a d-dimer was sent that came back elevated at greater than 5000. Patient has some chronic kidney disease and therefore CT angiography could not be done. A VQ scan was done that did not show any pulmonary embolism. The rest the patient's labs show some anemia but not at a level that requires transfusion. There is some chronic kidney disease, elevated troponin that I believe is secondary to his chronic kidney disease as opposed to coronary artery disease. EKG does not show any signs of ST elevation CT. The patient will be admitted to hospital for further evaluation, titration of his pressors and evaluation of his syncope and hypotension. The patient has been accepted for admission by the hospitalist, Dr. San. - Differential Diagnosis PE, CT, CHF, syncope, seizure Critical Care Time: Yes Critical care time in (mins) excluding proc time.: 35 Critical care attestation.: If time is entered above; I have spent that time in minutes in the direct care of this critically ill patient, excluding procedure time. Critical care time was spent on this patient and doing his initial evaluation, multiple re- evaluations, titration of his pressors, ordering evaluation of labs, ordering and evaluation of imaging, discussion with the [facility] hospitalist, discussion with the patient and his family. This is on top of and does not include the central line placed. Critical Care Time: 35 mins ED Disposition Clinical Impression: Renal failure Hypotension Qualifiers: Hypotension type: unspecified hypotension type Qualified Code(s): I95.9 - Hypotension, unspecified Syncope Qualifiers: Syncope type: unspecified Qualified Code(s): R55 - Syncope and collapse Anemia Qualifiers: Anemia type: unspecified type Qualified Code(s): D64.9 - Anemia, unspecified Disposition: OP ADMITTED IP TO THIS HOSP Is pt being admited?: Yes Condition: Serious Instructions: Syncope (ED) Referrals: PRIMARY CARE, [Primary Care Provider] - 3-5 Days Time of Disposition: 19:21
--- NOTE | 2017-01-17 15:15 | XRay Report ---
AP CHEST: HISTORY: Syncope AP view of the chest demonstrates a normal mediastinal and cardiac contour with clear lungs and normal bony and soft tissue structures. IMPRESSION: Unremarkable AP chest.
[2017-01-17 15:42] LABS: Basophils % (Auto) 0.5 % (0.0-1.8); Eosinophils % (Auto) 0.5 % (0.0-4.3); Hematocrit 27.5 % (35.5-45.6); Hemoglobin 8.7 gm/dl (11.8-15.2); Mean Corpuscular HGB Conc 32 % (32-34); Mean Corpuscular Hemoglobin 26 pg (28-32); Mean Corpuscular Volume 83 fl (84-94); Platelet Count 498 K/mm3 (140-440); Red Blood Count 3.31 M/mm3 (3.65-5.03); Red Cell Distribution Width 17.6 % (13.2-15.2); White Blood Count 13.4 K/mm3 (4.5-11.0)
[2017-01-17 15:50] LABS: BUN/Creatinine Ratio 13.63; Calcium 9.1 mg/dL (8.4-10.2); Chloride 95.7 mmol/L (98-107); Creatine Kinase MB 1.4 ng/mL (0.0-4.0); Potassium 3.8 mmol/L (3.6-5.0)
[2017-01-17 15:53] LABS: INR 1.28 (0.87-1.13)
[2017-01-17 15:54] LABS: Partial Thromboplastin Time 30.1 Sec. (24.2-36.6)
--- NOTE | 2017-01-17 18:21 | Admit Criteria Form ---
Admission Criteria Documentation: CARDIOLOGY GRG Clinical Indications for Admission to Inpatient Care ( Place 'X' for any and all applicable criteria): Hospital admission is needed for appropriate care of the patient because of ANY ONE of the following (1): [ X] I. Hemodynamic instability as indicated by ALL of the following (1)(2)(3 )(4)(5) [X ]a) Vital signs or other findings not as expected for chronic patient condition or baseline [X ]b) Instability indicated by ANY ONE of the following: [X ]i) Hypotension [ ]ii) Symptomatic Tachycardia unresponsive to treatment ( e.g., analgesia, fluids, sedation as indicated) [ ]iii) Inadequate perfusion indicated by ANY ONE of the following: [ ] 1) Lactic acidosis (> 2 mmol/L) [ ] 2) New abnormal capillary refill (> 3 seconds) [ ] 3) Reduced urine output [ ] 4) New altered mental status [ ]iv) Orthostatic vital sign changes unresponsive to treatment (e.g., fluids) [ ]v) IV inotropic or vasopressor medication required to maintain adequate blood pressure or perfusion [ ] II. Severe heart failure as indicated by ANY ONE of the following(17)(18) [ ]a) Respiratory distress [ ]b) Hypotension [ ]c) Anasarca (refractory to outpatient therapy) [ ]d) Cardiac arrhythmias of immediate concern [ ]e) Myocardial ischemia [ ] III. Cardiac arrhythmias or findings of immediate concern indicated by ANY ONE of the following (19)(20): [ ] a) Heart rhythms that are inherently dangerous or unstable indicated by ANY ONE of the following (21)(22)(23): [ ] i) Resuscitated ventricular fibrillation or cardiac arrest [ ] ii) Ventricular escape rhythm [ ] iii) Sustained ventricular tachycardia (30 seconds or more of ventricular rhythm at greater than 100 beats per minute) [ ] iv) Nonsustained ventricular tachycardia and ANY ONE of the following: [ ] 1) Suspected cardiac ischemia as cause or consequence of ventricular tachycardia [ ] 2) In setting of acute myocarditis [ ] b) Unstable cardiac conduction defects indicated by ANY ONE of the following(23)(24)(25) [ ] i) Type II second-degree atrioventricular block [ ]ii) Third-degree atrioventricular block [ ]iii) New-onset left bundle branch block with suspected myocardial ischemia [ ]c) Any heart rhythm and ANY ONE of the following (21)(22)(26)(27) (28) [ ] i) Continuous long-term ECG monitoring needed (e.g., initiation of drug requiring monitoring for more than 24 hours) [ ] ii) Patient has automatic implanted cardioverter defibrillator that is repeatedly firing, malfunctioning, or in need of immediate adjustment of settings beyond the scope of ambulatory or observation care [ ]d) Heart rhythms of concern due to ANY ONE of the following: [ ] i) Hypotension [ ] ii) Respiratory distress [ ] iii) Association with other significant symptoms (e.g., bradycardia with syncope or ongoing dizziness, supraventricular tachycardia with chest pain (14)(15)(17) [ ] IV. Monitoring for cardiac contusion beyond the scope of observation care needed [A](30)(31)(32) [ ] V. Surgical or device complication (e.g., valve replacement complication , pacemaker dysfunction) (35)(41)(44)(45)(46) [ ] . Inpatient palliative care needed. [B](49) Also use Inpatient Palliative Care Criteria [ ] VII. Nonbacterial thrombotic (marantic) endocarditis (36)(43)(47)(48) [ ] VIII. Cardiology condition, symptom, or finding for which emergency and observation care has failed or are not considered appropriate. [ ] IX. Acute valvular disease requiring inpatient as indicated by ANY ONE of the following (41) [ ]a) Acute valvular regurgitation (42) [ ]b) Noninfectious valvulitis (43) [ ]c) Obstructive valve thrombosis [ ]d) Paravalvular leak [ ]e) Other significant valvular disorder remaining after emergency or observation level of care (as appropriate) [ ]X. Pericardial disease requiring inpatient treatment as indicated by ANY ONE of the following (33)(34)(35)(36)(37) [ ]a) Suspected tamponade (38)(39)(40) [ ]b) Hemopericardium [ ]c) Other significant pericardial disorder remaining after emergency or observation level of care (as appropriate) [ ] XI. Cardiac ischemia beyond scope of emergency and observation care. [ ] XII. Hypertension requiring inpatient treatment as indicated by ANY ONE of the following (6)(7)(8) [ ]a) SBP greater than 220 mm Hg or DBP greater than 120 mmHg despite treatment [ ]b) SBP greater than 140 mm Hg or DBP greater than 100 mm Hg with evidence of acute end organ damage as indicated by ANY ONE of the following [ ] i) Altered mental status [ ] ii) Acute renal failure as indicated by new onset of ANY ONE of the following (9)(10)(11)(12)(13) [ ]1) 3-fold rise in serum creatinine from baseline [ ]2) Serum creatinine greater than 4 mg/dL ( 354 micromoles/L) with acute rise greater than 0.5 mg/dL (44.2 micromoles/L) [ ]3) Reduction of more than 75% in estimated glomerular filtration rate from baseline [ ]4) Estimated glomerular filtration rate less than 35 mL/min/1.73m2 (0.59 mL/sec/1.73m2) in child up to 18 years of age [ ]5) Cessation of urine output indicated by ALL of the following [ ]A. Adequate volume status [ ]B. Inadequate urine output as indicated by ANY ONE of the following [ ]a. Urine output less than 0.3 mL/kg/hr for 24 hours [ ]b. Anuria (urine output less than 0.1 mL/kg/hr) for 12 hours [ ] iii) Aortic dissection [ ] iv) Myocardial Ischemia [ ] v) Left ventricular heart failure [ ]vi) Retinal Hemorrhage [ ]vii) Other significant finding [ ]c) Hypertension in child requiring inpatient treatment as indicated by ALL of the following(14)(15)(16) [ ] i) Outpatient treatment not effective, not available, or not appropriate [ ]ii) SBP or DBP greater than 95th percentile for age [ ]iii) Evidence of acute end organ damage as indicated by ANY ONE of the following [ ]1) Altered mental status [ ]2) Acute renal failure as indicated by new onset of ANY ONE of the following(9)(10)(11)(12)(13) [ ]A. 3-fold rise in serum creatinine from baseline [ ]B. Serum creatinine greater than 4 mg/dL (354 micromoles/L) with acute rise greater than 0.5 mg/dL (44.2 micromoles/L) [ ]C. Reduction of more than 75% in estimated glomerular filtration rate from baseline [ ]D. Estimated glomerular filtration rate less than 35 mL/min/1.73m2 (0.59 mL/sec/1.73m2) in child up to 18 years of age [ ]E. Cessation of urine output indicated by ALL of the following [ ]a. Adequate volume status [ ]b. Inadequate urine output as indicated by ANY ONE of the following [ ]i) Urine output less than 0.3 mL/kg/hr for 24 hours [ ]ii) Anuria ( urine output less than 0.1 mL/kg/hr) for 12 hours [ ]3) Severe headache [ ]4) Visual disturbance [ ]5) Retinal hemorrhage [ ]6) Other significant finding [ ]XIII. Complications of transplanted heart indicated by ANY ONE of the following(61): [ ]a) Acute graft rejection requiring inpatient management (eg, intravenous immunosuppression)(62)(63) [ ]b) Acute graft heart failure indicated by ANY ONE of the following(64): [ ]i) Hemodynamic instability [ ]ii) Cardiac arrhythmias of immediate concern [ ]iii) Pulmonary edema that is very severe (eg, mechanical ventilation needed, imminent or likely, need for 100% oxygen to keep oxygen saturation above 90%) [ ]iv) Pulmonary edema that is persistent as indicated by ALL of the following: [ ]1) New need for oxygen therapy to keep oxygen saturation above 90% (or increased FiO2 need from baseline) [ ]2) Has not improved sufficiently with emergency department or observation care IV diuretics or other heart failure treatments[E] [ ]v) Altered mental status that is severe or persistent [ ]vi) Increased creatinine (new on laboratory test) with reduction of more than 50% in estimated glomerular filtration rate from baseline [ ]vii) Progressively (ongoing) rising creatinine (known from past laboratory test) with reduction of more than 25% in estimated glomerular filtration rate from baseline [ ]viii) Acute renal failure [ ]ix) Acute peripheral ischemia (eg, examination shows pulseless, cool, mottled, or cyanotic extremity) [ ]x) Pulmonary artery catheter monitoring needed [ ]xi) Other sign or symptom of heart failure requiring inpatient treatment (ie, too severe or not responsive to outpatient and observation care treatment) [ ]c) Infection requiring inpatient management (eg, Hemodynamic instability, need for intravenous antimicrobial treatment)(66)(67)(68)(69)(70) [ ]d) Cardiac allograft vasculopathy requiring inpatient management ( eg evidence of cardiac ischemia)(71) [ ]e) Other complication of transplanted heart (eg, stroke, severe pulmonary hypertension, severe valvular dysfunction) requiring inpatient management(72) The original [facility] [employer] content created by [employer] has been revised. The portions of the content which have been revised are identified through the use of italic text or in bold, and [facility] has neither reviewed nor approved the modified material. All other unmodified content is copyright [facility] [employer]. Please see references footnoted in the original [facility] [employer] edition 2016 Admission Criteria Met: Yes
[2017-01-17] MEDS ORDERED: NACL 0.9% 500 ML 500 ML ONE (18:41)
--- NOTE | 2017-01-17 18:44 | Nuclear Medicine Report ---
FINAL REPORT PROCEDURE: Nuclear medicine ventilation and perfusion lung scan. TECHNIQUE: Ventilation imaging was done in the posterior projection using 15 millicuries of Xenon 133 gas. Perfusion imaging was done in multiple projections using 5 millicuries of technetium 99 M MAA. HISTORY: Syncope, elevated D-dimer, shortness of breath. COMPARISON: Comparison chest radiograph 01/17/2017. FINDINGS: There is symmetrical, homogeneous ventilation bilaterally. There is no trapping of Xenon gas during the washout phase of the study. The perfusion images are also homogeneous. There are no definite perfusion defects identified. The lung scan is normal and carries an extremely low probability of pulmonary embolism. IMPRESSION: Normal lung scan.
[2017-01-17] MEDS ORDERED: NACL 0.9% 500 ML 500 ML IV ONE (18:57)
[2017-01-17] MEDS ORDERED: LEVOPHED DRIP 4 MG/NS 250 ML 4 MG/250 ML BAG IV ONE (19:24)
[2017-01-17] MEDS: LEVOPHED DRIP 4 MG/NS 250 ML 4 MG/250 ML BAG IV SCH (19:48)
--- NOTE | 2017-01-17 23:18 | History and Physical Report ---
History of Present Illness Date of examination: 01/17/17 Chief complaint: Passed out History of present illness: This is a 61-year-old Afro-[place] male who presents to the emergency department by EMS from home with complaints of lo. The patient's sister found him on the floor unresponsive. His eyes rolled in the back of his head but they always remained open but he was unresponsive to anybody talking to him. At one point they felt as if he stopped breathing so they put him on to the ground completely and started chest compressions. The patient regained consciousness after 1 minute of chest compression and was able to identify his family members and his girlfriend but said that he did not remember passing out. Since that time the patient just complains of feeling slightly weak and feeling dehydrated. Patient presents with hypotension and says that he took his lisinopril and carvedilol this morning but he did not take any excess dosing. He has a history of gout, hypertension and chronic back pain for which she is supposed to have surgery in the near future. Patient's primary care doctor is Dr. Alpesh Nuñez. He denies any history of VA, CVA, PE/DVT. No recent travel or sick contacts at home. Patient admitted to frequent loose stools for the past few days, patient throw up this morning. Patient denied any fever or chills. Patient had bowel and bladder incontinence at the time of incident. Patient was discharged to discontinue from the hospital after he was admitted for severe weakness, renal failure and sepsis. REVIEW OF SYSTEMS: GENERAL: no weight change, no fatigue, no fever HEAD: no head ache EYES: no blurry vision, no acute visual loss EARS: no hearing loss, no discharge, no earache NOSE: no stuffiness, no sneezing, no discharge MOUTH, THROAT AND NECK: no bleeding gums, no sore throat, no swollen neck CARDIAC: no palpitations, no dyspnea on exertion, no orthopnea, no PND, no edema , no chest pain RESPIRATORY: no shortness of breath, no wheeze, no cough, no sputum, no hemoptysis, no asthma GI: no decreased appetite, + nausea, no vomiting, no dysphagia, no constipation , no abdominal pain URINARY: no change in frequency, no urgency, no polyuria, no hematuria, no incontinence MUSCULOSKELETAL: no muscle weakness, no pain, no joint stiffness NEUROLOGIC: no loss of sensation/numbness, no tingling, no tremors, no weakness/ paralysis HEMATOLOGIC: no anemia, no easy bruising SKIN: no rashes ENDOCRINE: no heat/cold intolerance, no polyuria, no polydipsia, no thyroid problems, no diabetes PSYCHIATRIC: no anxiety, no depression, no suicidal ideations Past History Past Medical History: hypertension, other (obstructive sleep apnea, chronic back pain, gout) Past Surgical History: No surgical history Social history: full code. denies: smoking, alcohol abuse, IV drug use Family history: denies: CAD, stroke Medications and Allergies Allergies Allergy/AdvReac Type Severity Reaction Status Date / Time Penicillins Allergy Itching Verified 12/30/16 16:36 Home Medications Medication Instructions Recorded Confirmed Last Taken Type Allopurinol [Zyloprim] 100 mg PO QDAY 12/30/16 01/17/17 12/30/16 History Carvedilol [Coreg] 25 mg PO BID 12/30/16 01/17/17 12/30/16 History Lisinopril/Hydrochlorothiazide 1 tab PO QDAY 12/30/16 01/17/17 12/30/16 History [Zestoretic 20-25 mg] Folic Acid [Folvite] 1 mg PO QDAY #30 tablet 01/06/17 01/17/17 Unknown Rx HYDROcodone/APAP 7.5-325 [[place] 1 each PO Q6HR PRN #120 tablet 01/06/17 Unknown Rx 7.5/325] Active Meds: Active Medications Norepinephrine (Levophed Drip 4 Mg/Ns 250 Ml) 4 mg in 250 mls @ 7.5 mls/hr IV TITR CARA; 2 MCG/MIN PRN Reason: Protocol Last Admin: 01/17/17 19:48 Dose: 4 mcg/min, 15 mls/hr Exam - Physical Exam Narrative exam: Not in cardiopulmonary distress. The patient is obese. Vital signs as documented. Head exam is unremarkable. No scleral icterus . Neck is without jugular venous distension, thyromegaly, or carotid bruits. Lungs are clear to auscultation. Cardiac exam reveals regular rate and Rhythm. First and second heart sounds normal. No murmurs, rubs or gallops. Abdominal exam reveals normal bowel sounds, no masses, no organomegaly and no aortic enlargement. Extremities and generalized weakness. BICYCLE RACER: Alert and oriented 3. No focal weakness. - Constitutional Vitals: Temp Pulse Resp BP Pulse Ox 97.8 F 80 17 99/46 97 01/17/17 14:29 01/17/17 22:45 01/17/17 22:45 01/17/17 22:45 01/17/17 22:45 Results - Labs CBC & Chem 7: 01/17/17 15:11 01/17/17 15:11 Labs: Laboratory Last Values WBC 13.4 K/mm3 (4.5-11.0) H 01/17/17 15:11 RBC 3.31 M/mm3 (3.65-5.03) L 01/17/17 15:11 Hgb 8.7 gm/dl (11.8-15.2) L 01/17/17 15:11 Hct 27.5 % (35.5-45.6) L 01/17/17 15:11 MCV 83 fl (84-94) L 01/17/17 15:11 MCH 26 pg (28-32) L 01/17/17 15:11 MCHC 32 % (32-34) 01/17/17 15:11 RDW 17.6 % (13.2-15.2) H 01/17/17 15:11 Plt Count 498 K/mm3 (140-440) H 01/17/17 15:11 Lymph % (Auto) 4.7 % (13.4-35.0) L 01/17/17 15:11 [place] % (Auto) 7.1 % (0.0-7.3) 01/17/17 15:11 Eos % (Auto) 0.5 % (0.0-4.3) 01/17/17 15:11 Baso % (Auto) 0.5 % (0.0-1.8) 01/17/17 15:11 Lymph # 0.6 K/mm3 (1.2-5.4) L 01/17/17 15:11 [place] # 1.0 K/mm3 (0.0-0.8) H 01/17/17 15:11 Eos # 0.1 K/mm3 (0.0-0.4) 01/17/17 15:11 Baso # 0.1 K/mm3 (0.0-0.1) 01/17/17 15:11 Seg Neutrophils % 87.2 % (40.0-70.0) H 01/17/17 15:11 Seg Neutrophils # 11.7 K/mm3 (1.8-7.7) H 01/17/17 15:11 PT 15.9 Sec. (12.2-14.9) H 01/17/17 15:11 INR 1.28 (0.87-1.13) H 01/17/17 15:11 APTT 30.1 Sec. (24.2-36.6) 01/17/17 15:11 D-Dimer 5112.91 ng/mlDDU (0-234) H 01/17/17 15:11 Sodium 135 mmol/L (137-145) L 01/17/17 15:11 Potassium 3.8 mmol/L (3.6-5.0) 01/17/17 15:11 Chloride 95.7 mmol/L (98-107) L 01/17/17 15:11 Carbon Dioxide 22 mmol/L (22-30) 01/17/17 15:11 Anion Gap 21 mmol/L 01/17/17 15:11 BUN 45 mg/dL (9-20) H 01/17/17 15:11 Creatinine 3.3 mg/dL (0.8-1.5) H 01/17/17 15:11 Estimated GFR 23 ml/min 01/17/17 15:11 BUN/Creatinine Ratio 13.63 % 01/17/17 15:11 Glucose 140 mg/dL (75-100) H 01/17/17 15:11 Calcium 9.1 mg/dL (8.4-10.2) 01/17/17 15:11 Total Creatine Kinase 69 units/L (55-170) 01/17/17 15:11 CK-MB (CK-2) 1.4 ng/mL (0.0-4.0) 01/17/17 15:11 CK-MB (CK-2) Rel Index 2.0 (0-4) 01/17/17 15:11 Troponin T 0.046 ng/mL (0.00-0.029) H 01/17/17 15:11 NT-Pro-B Natriuret Pep 478.5 pg/mL (0-900) 01/17/17 15:11 Triglycerides 55 mg/dL (2-149) 01/17/17 15:11 Cholesterol 100 mg/dL (50-199) 01/17/17 15:11 LDL Cholesterol Direct 47 mg/dL (50-130) L 01/17/17 15:11 HDL Cholesterol 42 mg/dL (40-59) 01/17/17 15:11 Cholesterol/HDL Ratio 2.38 % 01/17/17 15:11 TSH 2.860 mlU/mL (0.270-4.200) 01/17/17 15:11 - Imaging and Cardiology Chest x-ray: image reviewed (normal) Imaging and Cardiology: VQ scan negative for PE Assessment and Plan Assessment and plan: Loss of consciousness - likely from hypotension - Patient is on IV fluids Hypotension - Patient is on IV fluids, pressor support - We will monitor closely - Assurance Auditor consult Leukocytosis - Patient leukocytosis didn't increase from discharge value - Urinalysis and blood culture ordered - Follow and blood culture for possible IV antibiotics Acute renal failure - Likely pre renal - Nephrology consult placed Prophylaxis - Heparin Disposition - Admit to ICU Advance Directives: Yes (full code) VTE prophylaxis?: Chemical Plan of care discussed with patient/family: Yes
[2017-01-18] MEDS ORDERED: NACL 0.9% 1000 ML 1,000 ML IV SCH (01:00)
[2017-01-18 03:49] LABS: Bacteria,Urine 1+ /HPF (Negative); Bilirubin,Urine NEG (Negative); Blood,Urine MOD (Negative); Ketones,Urine NEG (Negative); Leukocyte Esterase,Urine TR (Negative); Mucus,Urine FEW /HPF; Nitrite,Urine NEG (Negative); Protein,Urine <15 mg/dL mg/dL (Negative); Urobilinogen,Urine < 2.0 mg/dL (<2.0)
[2017-01-18] MEDS: HEPARIN SUB-Q SCH ×3 (06:14→21:33)
--- NOTE | 2017-01-18 08:38 | XRay Report ---
AP CHEST: HISTORY: Central line placement AP view of the chest demonstrates a normal mediastinal and cardiac contour with clear lungs and normal bony and soft tissue structures. The right IJ venous catheter has been inserted which terminates in the lower SVC. No pneumothorax. IMPRESSION: Unremarkable AP chest.
--- NOTE | 2017-01-18 10:46 | Consultation ---
History of Present Illness - Reason for Consult Consult date: 01/18/17 acute renal failure Requesting physician: KEILA GALLAGHER - History of Present Illness This is a 61yo AAM with patient medical history of Hypertension, gout, who was BIBEMS on 01/18/17 after patient's sister found him on the floor unresponsive, it is reported that his eyes rolled in the back of his head but they always remained open but he was unresponsive to any family members talking to him. At one point they felt as if he stopped breathing so they put him on to the ground completely and started chest compressions. The patient regained consciousness after 1 minute of chest compression and was able to identify his family members and his girlfriend but said that he did not remember passing out. Since that time the patient just complains of feeling slightly weak and feeling dehydrated. In ER patient was found to be hypotensive with BP as low as 70/40s, required IV NS boluses and was initiated on levophed. labs showed signficantly elevated d-dimer >5000, however V/Q scan showed no evidence of acute PE. Pt was also found to be in acute renal failure with BUN/Cr elevated at 45/3.3mg/dl, for which renal consult is requested. last Cr was 1.3mg/dl on previous hospitalization 01/04/17. pt seen and examined at bedside, awake, alert, oriented x 3, denies recent SOB, CP, palpitations, fever, chills, nausea, vomiting, dysuria, rash. Pt has chronic back pain for which she is supposed to have surgery in the near future. He denies any history of MA, CVA, PE/DVT. No recent travel or sick contacts at home reported. Past History Past Medical History: hypertension, other (obstructive sleep apnea, chronic back pain, gout) Past Surgical History: No surgical history Social history: full code. denies: smoking, alcohol abuse, IV drug use Family history: denies: CAD, stroke Medications and Allergies Allergies Allergy/AdvReac Type Severity Reaction Status Date / Time Penicillins Allergy Itching Verified 12/30/16 16:36 Home Medications Medication Instructions Recorded Confirmed Last Taken Type Allopurinol [Zyloprim] 100 mg PO QDAY 12/30/16 01/17/17 12/30/16 History Carvedilol [Coreg] 25 mg PO BID 12/30/16 01/17/17 12/30/16 History Lisinopril/Hydrochlorothiazide 1 tab PO QDAY 12/30/16 01/17/17 12/30/16 History [Zestoretic 20-25 mg] Folic Acid [Folvite] 1 mg PO QDAY #30 tablet 01/06/17 01/17/17 Unknown Rx HYDROcodone/APAP 7.5-325 [[place] 1 each PO Q6HR PRN #120 tablet 01/06/17 Unknown Rx 7.5/325] Active Meds: Active Medications Heparin Sodium (Porcine) (Heparin) 5,000 unit SUB-Q Q8HR CARA Last Admin: 01/18/17 06:14 Dose: 5,000 unit Norepinephrine (Levophed Drip 4 Mg/Ns 250 Ml) 4 mg in 250 mls @ 7.5 mls/hr IV TITR CARA; 2 MCG/MIN PRN Reason: Protocol Last Titration: 01/18/17 05:51 Dose: 7 mcg/min, 26.25 mls/hr Influenza Virus Vaccine Quadrival (Fluarix Quad [id number](36 Mos+)) 60 mcg IM .ONCE ONE Stop: 01/18/17 12:01 Pneumococcal Polyvalent Vaccine (Pneumovax 23) 0.5 ml IM .ONCE ONE Stop: 01/18/17 12:01 Review of Systems All systems: negative Constitutional: weakness Cardiovascular: syncope, leg edema Exam - Vital Signs Vital signs: Vital Signs BP Pulse Ox 99/45 97 01/17/17 14:15 01/17/17 14:15 - General Appearance General appearance: well-developed, well-nourished, appears stated age, obese EENT: ATNC, PERRL, mucous membranes moist Neck: Present: neck supple Respiratory: Clear to Ascultation Heart: irregular, S1S2, no murmurs Gastrointestinal: Present: normal, normoactive bowel sounds Integumentary: no rash, other (trace edema b/l LE ) Neurologic: no focal deficit, alert and oriented x3, strength 5/5, CN 3-12 intact Psychiatric: mood/affect appropriate, cooperative Results - Lab Results 01/17/17 15:11 01/17/17 15:11 Most recent lab results Calcium 9.1 mg/dL (8.4-10.2) 01/17/17 15:11 Laboratory Tests 01/17/17 01/17/17 01/17/17 15:11 15:11 15:11 PT 15.9 H INR 1.28 H APTT 30.1 D-Dimer 5112.91 H Calcium 9.1 Total Creatine Kinase 69 CK-MB (CK-2) 1.4 CK-MB (CK-2) Rel Index 2.0 Troponin T 0.046 H NT-Pro-B Natriuret Pep 478.5 Triglycerides 55 Cholesterol 100 HDL Cholesterol 42 Cholesterol/HDL Ratio 2.38 TSH 01/17/17 15:11 PT INR APTT D-Dimer Calcium Total Creatine Kinase CK-MB (CK-2) CK-MB (CK-2) Rel Index Troponin T NT-Pro-B Natriuret Pep Triglycerides Cholesterol HDL Cholesterol Cholesterol/HDL Ratio TSH 2.860 Assessment and Plan - Patient Problems (1) Acute kidney failure with tubular necrosis Current Visit: Yes Status: Acute Plan to address problem: acute kidney injury is most likely due to acute tubular necrosis in the setting of hypotension, cardiogenic vs septic shock. Will check UA, urine lytes, urine protein/cr ratio. continue supportive care for GLORIA/ATN, avoid further nephrotoxins, NSAIDs, IV contrast, keep MAP >75mmHg no acute indication for renal replacement therapy at present. Will monitor electrolytes and renal parameters closely and make further recommendations. (2) Shock Current Visit: Yes Status: Acute Plan to address problem: hypovolemic vs septic vs cardiogenic. V/Q scan is negative for PE. EKG shows SR w/ premature atrial complexes. Obtain Echocardiogram. cont IV NS boluses prn/ levophed to keep MAP 65mmHg. (3) Hypotension Current Visit: Yes Status: Acute Qualifiers: Hypotension type: unspecified hypotension type Trimester: T Qualified Code(s): I95.9 - Hypotension, unspecified Plan to address problem: cont IV NS boluses prn/levophed to keep MAP 65mmHg. (4) Syncope Current Visit: Yes Status: Acute Qualifiers: Syncope type: unspecified Encounter type: E Qualified Code(s): R55 - Syncope and collapse Plan to address problem: syncope w/u as per primary attending. check Echocardiogram (5) Anemia, chronic disease Current Visit: Yes Status: Acute Plan to address problem: microcytic anemia, check iron/ferritin level.
--- NOTE | 2017-01-18 11:52 | Progress Note ---
Assessment and Plan Assessment and plan: 1. Shock. Etiology is secondary to hypovolemia versus sepsis versus cardiogenic. VQ scan is negative for PE. Echocardiogram pending. Etiology likely secondary to hypovolemia from dehydration. Continue IV fluid normal saline boluses. Wean pressors as tolerated. Follow blood cultures and trend lactic acid levels. 2. Acute kidney injury/ATN. Acute kidney injury is most likely due to acute tubular necrosis in the setting of hypotension/shock. Continue IV fluid hydration and supportive care. Avoid nephrotoxins, NSAIDs and IV contrast. Follow-up BMP in the morning. Nephrology following. 3. Vasomotor nephropathy. Etiology secondary to above. 4. Syncope. Etiology secondary to vasovagal episode on the commode and hypotension. Follow-up echocardiogram. 5. Anemia. Follow-up Hemoccult stools. History Interval history: 61-year-old male who presented through the emergency department with diagnosis of syncope and refractory hypotension currently requiring pressors. Patient reports having some constipated and straining prior to his syncopal episode while on the commode. He currently denies any chest pain or shortness of breath. Hospitalist Physical - Constitutional Vitals: Temp Pulse Resp BP Pulse Ox 97.8 F 87 20 99/57 98 01/17/17 14:29 01/18/17 10:00 01/18/17 10:00 01/18/17 10:00 01/18/17 10:00 General appearance: Present: no acute distress, well-nourished - EENT Eyes: Present: PERRL, EOM intact ENT: hearing intact, clear oral mucosa, dentition normal - Neck Neck: Present: supple, normal ROM - Respiratory Respiratory effort: normal Respiratory: bilateral: CTA - Cardiovascular Rhythm: regular Heart Sounds: Present: S1 & S2. Absent: gallop, rub - Extremities Extremities: no ischemia, No edema, Full ROM - Abdominal General gastrointestinal: soft, non-tender, non-distended, normal bowel sounds - Integumentary Integumentary: Present: clear, warm, dry - Neurologic Neurologic: CNII-XII intact, moves all extremities Results - Labs CBC & Chem 7: 01/17/17 15:11 01/17/17 15:11 Labs: Laboratory Last Values WBC 13.4 K/mm3 (4.5-11.0) H 01/17/17 15:11 RBC 3.31 M/mm3 (3.65-5.03) L 01/17/17 15:11 Hgb 8.7 gm/dl (11.8-15.2) L 01/17/17 15:11 Hct 27.5 % (35.5-45.6) L 01/17/17 15:11 MCV 83 fl (84-94) L 01/17/17 15:11 MCH 26 pg (28-32) L 01/17/17 15:11 MCHC 32 % (32-34) 01/17/17 15:11 RDW 17.6 % (13.2-15.2) H 01/17/17 15:11 Plt Count 498 K/mm3 (140-440) H 01/17/17 15:11 Lymph % (Auto) 4.7 % (13.4-35.0) L 01/17/17 15:11 [place] % (Auto) 7.1 % (0.0-7.3) 01/17/17 15:11 Eos % (Auto) 0.5 % (0.0-4.3) 01/17/17 15:11 Baso % (Auto) 0.5 % (0.0-1.8) 01/17/17 15:11 Lymph # 0.6 K/mm3 (1.2-5.4) L 01/17/17 15:11 [place] # 1.0 K/mm3 (0.0-0.8) H 01/17/17 15:11 Eos # 0.1 K/mm3 (0.0-0.4) 01/17/17 15:11 Baso # 0.1 K/mm3 (0.0-0.1) 01/17/17 15:11 Seg Neutrophils % 87.2 % (40.0-70.0) H 01/17/17 15:11 Seg Neutrophils # 11.7 K/mm3 (1.8-7.7) H 01/17/17 15:11 PT 15.9 Sec. (12.2-14.9) H 01/17/17 15:11 INR 1.28 (0.87-1.13) H 01/17/17 15:11 APTT 30.1 Sec. (24.2-36.6) 01/17/17 15:11 D-Dimer 5112.91 ng/mlDDU (0-234) H 01/17/17 15:11 Sodium 135 mmol/L (137-145) L 01/17/17 15:11 Potassium 3.8 mmol/L (3.6-5.0) 01/17/17 15:11 Chloride 95.7 mmol/L (98-107) L 01/17/17 15:11 Carbon Dioxide 22 mmol/L (22-30) 01/17/17 15:11 Anion Gap 21 mmol/L 01/17/17 15:11 BUN 45 mg/dL (9-20) H 01/17/17 15:11 Creatinine 3.3 mg/dL (0.8-1.5) H 01/17/17 15:11 Estimated GFR 23 ml/min 01/17/17 15:11 BUN/Creatinine Ratio 13.63 % 01/17/17 15:11 Glucose 140 mg/dL (75-100) H 01/17/17 15:11 Calcium 9.1 mg/dL (8.4-10.2) 01/17/17 15:11 Total Creatine Kinase 69 units/L (55-170) 01/17/17 15:11 CK-MB (CK-2) 1.4 ng/mL (0.0-4.0) 01/17/17 15:11 CK-MB (CK-2) Rel Index 2.0 (0-4) 01/17/17 15:11 Troponin T 0.046 ng/mL (0.00-0.029) H 01/17/17 15:11 NT-Pro-B Natriuret Pep 478.5 pg/mL (0-900) 01/17/17 15:11 Triglycerides 55 mg/dL (2-149) 01/17/17 15:11 Cholesterol 100 mg/dL (50-199) 01/17/17 15:11 LDL Cholesterol Direct 47 mg/dL (50-130) L 01/17/17 15:11 HDL Cholesterol 42 mg/dL (40-59) 01/17/17 15:11 Cholesterol/HDL Ratio 2.38 % 01/17/17 15:11 TSH 2.860 mlU/mL (0.270-4.200) 01/17/17 15:11 Urine Color Straw (Yellow) 01/18/17 03:19 Urine Turbidity Clear (Clear) 01/18/17 03:19 Urine pH 5.0 (5.0-7.0) 01/18/17 03:19 Ur Specific [place] 1.009 (1.003-1.030) 01/18/17 03:19 Urine Protein <15 mg/dl mg/dL (Negative) 01/18/17 03:19 Urine Glucose (UA) 50 mg/dL (Negative) 01/18/17 03:19 Urine Ketones Neg mg/dL (Negative) 01/18/17 03:19 Urine Blood Mod (Negative) 01/18/17 03:19 Urine Nitrite Neg (Negative) 01/18/17 03:19 Urine Bilirubin Neg (Negative) 01/18/17 03:19 Urine Urobilinogen < 2.0 mg/dL (<2.0) 01/18/17 03:19 Ur Leukocyte Esterase Tr (Negative) 01/18/17 03:19 Urine WBC (Auto) 11.0 /HPF (0.0-6.0) H 01/18/17 03:19 Urine RBC (Auto) 5.0 /HPF (0.0-6.0) 01/18/17 03:19 U Epithel Cells (Auto) < 1.0 /HPF (0-13.0) 01/18/17 03:19 Urine Bacteria (Auto) 1+ /HPF (Negative) 01/18/17 03:19 Urine Mucus Few /HPF 01/18/17 03:19
[2017-01-18] MEDS ORDERED: FLUARIX QUAD 2016-2017(36 MOS+) IM ONE (12:00)
[2017-01-18] MEDS ORDERED: PNEUMOVAX 23 IM ONE (12:00)
[2017-01-18 14:07] LABS: Bacteria,Urine 1+ /HPF (Negative); Bilirubin,Urine NEG (Negative); Blood,Urine MOD (Negative); Granular Casts,Urine 2 /LPF; Ketones,Urine NEG (Negative); Leukocyte Esterase,Urine NEG (Negative); Mucus,Urine FEW /HPF; Nitrite,Urine NEG (Negative); Protein,Urine <15 mg/dL mg/dL (Negative); RBC,Urine < 1.0 /HPF (0.0-6.0); Urobilinogen,Urine < 2.0 mg/dL (<2.0)
[2017-01-18] MEDS: LEVOPHED DRIP 4 MG/NS 250 ML 4 MG/250 ML BAG IV SCH (20:31)
[2017-01-18] MEDS: DILAUDID IV PRN (21:32)
[2017-01-18] MEDS: ZOFRAN IV PRN (21:33)
[2017-01-19] MEDS: HEPARIN SUB-Q SCH ×3 (05:18→21:53)
[2017-01-19] MEDS: ZOFRAN IV PRN ×2 (05:18→14:27)
[2017-01-19] MEDS: DILAUDID IV PRN ×2 (05:19→14:26)
[2017-01-19] MEDS: LEVOPHED DRIP 4 MG/NS 250 ML 4 MG/250 ML BAG IV SCH ×2 (05:20→14:55)
[2017-01-19 05:53] LABS: Basophils % (Auto) 1.1 % (0.0-1.8); Hemoglobin 8.1 gm/dl (11.8-15.2); Mean Corpuscular HGB Conc 33 % (32-34); Mean Corpuscular Hemoglobin 27 pg (28-32); Mean Corpuscular Volume 82 fl (84-94); Platelet Count 378 K/mm3 (140-440); Red Blood Count 3.04 M/mm3 (3.65-5.03); Red Cell Distribution Width 17.5 % (13.2-15.2); White Blood Count 10.1 K/mm3 (4.5-11.0)
[2017-01-19 06:22] LABS: BUN/Creatinine Ratio 14.37; Calcium 9.2 mg/dL (8.4-10.2); Chloride 98.7 mmol/L (98-107); Potassium 3.9 mmol/L (3.6-5.0)
--- NOTE | 2017-01-19 10:06 | Progress Note ---
Assessment and Plan - Patient Problems (1) Acute kidney failure with tubular necrosis Current Visit: Yes Status: Acute Plan to address problem: acute kidney injury is most likely due to acute tubular necrosis in the setting of hypotension, cardiogenic vs septic shock. no signficant proteinuria seen, do not suspect acute glomerular injury. continue supportive care for GLORIA/ATN, avoid further nephrotoxins, NSAIDs, IV contrast, keep MAP >65mmHg Renal function improving with Cr down to 1.6mg/dl, patient remains non- oliguric. Will monitor electrolytes and renal parameters closely and make further recommendations. (2) Shock Current Visit: Yes Status: Acute Plan to address problem: hypovolemic vs septic vs cardiogenic. V/Q scan is negative for PE. EKG shows SR w/ premature atrial complexes. Obtain Echocardiogram. cont IV NS boluses prn/ levophed to keep MAP 65mmHg. (3) Hypotension Current Visit: Yes Status: Acute Qualifiers: Hypotension type: unspecified hypotension type Trimester: T Qualified Code(s): I95.9 - Hypotension, unspecified Plan to address problem: cont IV NS boluses prn/levophed to keep MAP 65mmHg. (4) Syncope Current Visit: Yes Status: Acute Qualifiers: Syncope type: unspecified Encounter type: E Qualified Code(s): R55 - Syncope and collapse Plan to address problem: syncope w/u as per primary attending. check Echocardiogram (5) Anemia, chronic disease Current Visit: Yes Status: Acute Plan to address problem: microcytic anemia, check iron/ferritin level. (6) Obstructive sleep apnea on CPAP Current Visit: Yes Status: Acute Plan to address problem: follow puletienne shoemaker Subjective Date of service: 01/19/17 Interval history: pt awake, alert, in NAD, remains hypotensive, requiring vasopressor support w/ levophed at 7mcg/min Objective - Vital Signs Vital signs: Vital Signs - 12hr 01/18/17 01/19/17 01/19/17 23:48 00:00 02:29 Temperature 99.1 F Pulse Rate Pulse Rate [ 88 From Monitor] Respiratory 18 Rate Blood Pressure 69/35 O2 Sat by Pulse 97 98 Oximetry 01/19/17 01/19/17 01/19/17 02:30 02:41 02:51 Temperature Pulse Rate Pulse Rate [ From Monitor] Respiratory Rate Blood Pressure 100/49 100/49 101/43 O2 Sat by Pulse 98 100 100 Oximetry 01/19/17 01/19/17 01/19/17 03:00 03:16 03:23 Temperature Pulse Rate Pulse Rate [ From Monitor] Respiratory Rate Blood Pressure 94/49 94/49 94/49 O2 Sat by Pulse 100 Oximetry 01/19/17 01/19/17 01/19/17 03:30 03:41 03:51 Temperature Pulse Rate 98 H 91 H 95 H Pulse Rate [ From Monitor] Respiratory 27 H 31 H 30 H Rate Blood Pressure 103/50 103/50 103/50 O2 Sat by Pulse 95 98 98 Oximetry 01/19/17 01/19/17 01/19/17 04:00 04:11 04:21 Temperature 99.9 F H Pulse Rate 87 85 87 Pulse Rate [ 81 From Monitor] Respiratory 22 28 H 25 H Rate Blood Pressure 97/61 97/61 97/61 O2 Sat by Pulse 95 97 96 Oximetry 01/19/17 01/19/17 01/19/17 04:31 04:41 04:51 Temperature Pulse Rate 90 80 83 Pulse Rate [ From Monitor] Respiratory 23 24 20 Rate Blood Pressure 94/37 94/37 94/37 O2 Sat by Pulse 93 93 98 Oximetry 01/19/17 01/19/17 01/19/17 05:00 05:11 05:21 Temperature Pulse Rate 88 118 H 95 H Pulse Rate [ From Monitor] Respiratory 20 23 24 Rate Blood Pressure 108/43 94/37 94/37 O2 Sat by Pulse 96 96 98 Oximetry 01/19/17 01/19/17 01/19/17 05:31 05:41 05:51 Temperature Pulse Rate 94 H 91 H 87 Pulse Rate [ From Monitor] Respiratory 25 H 23 24 Rate Blood Pressure 93/49 93/49 93/49 O2 Sat by Pulse 95 95 97 Oximetry 01/19/17 01/19/17 01/19/17 06:00 06:11 06:21 Temperature Pulse Rate 87 92 H 81 Pulse Rate [ From Monitor] Respiratory 23 19 21 Rate Blood Pressure 105/51 105/51 105/51 O2 Sat by Pulse 95 98 99 Oximetry 01/19/17 01/19/17 01/19/17 06:30 06:41 06:51 Temperature Pulse Rate 91 H 79 86 Pulse Rate [ From Monitor] Respiratory 21 20 21 Rate Blood Pressure 102/53 102/53 102/53 O2 Sat by Pulse 96 96 96 Oximetry 01/19/17 01/19/17 01/19/17 07:00 07:11 07:21 Temperature Pulse Rate 87 86 87 Pulse Rate [ From Monitor] Respiratory 20 21 23 Rate Blood Pressure 109/44 109/44 109/44 O2 Sat by Pulse 94 96 98 Oximetry 01/19/17 01/19/17 01/19/17 07:31 07:41 07:51 Temperature Pulse Rate 88 90 87 Pulse Rate [ From Monitor] Respiratory 22 22 29 H Rate Blood Pressure 105/49 105/49 105/49 O2 Sat by Pulse 92 99 96 Oximetry 01/19/17 01/19/17 01/19/17 08:00 08:01 08:11 Temperature 99.3 F Pulse Rate 88 84 Pulse Rate [ From Monitor] Respiratory 27 H 21 Rate Blood Pressure 108/47 108/47 O2 Sat by Pulse 94 97 Oximetry 01/19/17 01/19/17 01/19/17 08:21 08:30 08:41 Temperature Pulse Rate 86 86 87 Pulse Rate [ From Monitor] Respiratory 20 20 19 Rate Blood Pressure 108/47 109/53 109/53 O2 Sat by Pulse 96 95 98 Oximetry 01/19/17 01/19/17 08:51 09:01 Temperature Pulse Rate 89 88 Pulse Rate [ From Monitor] Respiratory 18 30 H Rate Blood Pressure 109/53 90/38 O2 Sat by Pulse 96 94 Oximetry - General Appearance General appearance: well-developed, well-nourished, appears stated age, obese EENT: ATNC, PERRL, mucous membranes moist Neck: no JVD Respiratory: Present: Clear to Ascultation Cardiology: regular, S1S2 Gastrointestinal: normal, normoactive bowel sounds Integumentary: no rash, other (trace edema ) Neurologic: no focal deficit, alert and oriented x3, strength 5/5, CN 3-12 intact Psychiatric: mood/affect appropriate, cooperative - Lab 01/19/17 05:30 01/19/17 05:30 Most recent lab results Calcium 9.2 mg/dL (8.4-10.2) 01/19/17 05:30 Urine Creatinine 36.1 mg/dL (0.1-20.0) H 01/18/17 13:48 Urine Sodium 90 mEq/L 01/18/17 13:48 Urine Total Protein 19 mg/dL (5-11.8) H 01/18/17 13:48
--- NOTE | 2017-01-19 11:25 | Consultation ---
History of Present Illness Consult date: 01/19/17 Requesting physician: KEILA GALLAGHER Reason for consult: other (Hypertensive Emergency) History of present illness: PULMONARY/CCM CONSULT NOTE (Full dictation # [id number]) Please see dictated notes for full details Past History Past Medical History: hypertension, other (obstructive sleep apnea, chronic back pain, gout) Past Surgical History: No surgical history Social history: full code. denies: smoking, alcohol abuse, IV drug use Family history: denies: CAD, stroke Medications and Allergies Allergies Allergy/AdvReac Type Severity Reaction Status Date / Time Penicillins Allergy Itching Verified 12/30/16 16:36 Home Medications Medication Instructions Recorded Confirmed Last Taken Type Allopurinol [Zyloprim] 100 mg PO QDAY 12/30/16 01/17/17 12/30/16 History Carvedilol [Coreg] 25 mg PO BID 12/30/16 01/17/17 12/30/16 History Lisinopril/Hydrochlorothiazide 1 tab PO QDAY 12/30/16 01/17/17 12/30/16 History [Zestoretic 20-25 mg] Folic Acid [Folvite] 1 mg PO QDAY #30 tablet 01/06/17 01/17/17 Unknown Rx HYDROcodone/APAP 7.5-325 [[place] 1 each PO Q6HR PRN #120 tablet 01/06/17 Unknown Rx 7.5/325] Active Meds: Active Medications Heparin Sodium (Porcine) (Heparin) 5,000 unit SUB-Q Q8HR CARA Last Admin: 01/19/17 05:18 Dose: 5,000 unit Hydromorphone HCl (Dilaudid) 0.5 mg IV Q3H PRN PRN Reason: Pain , Severe (7-10) Last Admin: 01/19/17 05:19 Dose: 0.5 mg Norepinephrine (Levophed Drip 4 Mg/Ns 250 Ml) 4 mg in 250 mls @ 7.5 mls/hr IV TITR CARA; 2 MCG/MIN PRN Reason: Protocol Last Admin: 01/19/17 05:20 Dose: 8 mcg/min, 30 mls/hr Ondansetron HCl (Zofran) 4 mg IV Q4H PRN PRN Reason: Nausea And Vomiting Last Admin: 01/19/17 05:18 Dose: 4 mg Physical Examination Vital signs: Vital Signs BP Pulse Ox 99/45 97 01/17/17 14:15 01/17/17 14:15 Results - Laboratory Findings CBC and BMP: 01/19/17 05:30 01/19/17 05:30 PT/INR, D-dimer PT 15.9 Sec. (12.2-14.9) H 01/17/17 15:11 INR 1.28 (0.87-1.13) H 01/17/17 15:11 D-Dimer 5112.91 ng/mlDDU (0-234) H 01/17/17 15:11 Abnormal lab findings: Abnormal Labs 01/18/17 01/18/17 01/19/17 03:19 13:48 05:30 RBC 3.04 L Hgb 8.1 L Hct 25.0 L MCV 82 L MCH 27 L RDW 17.5 H Lymph % (Auto) 9.7 L [place] % (Auto) 12.9 H Lymph # 1.0 L [place] # 1.3 H Seg Neutrophils % 72.3 H BUN Creatinine Glucose Urine WBC (Auto) 11.0 H Urine Creatinine 36.1 H Urine Total Protein 19 H 01/19/17 05:30 RBC Hgb Hct MCV MCH RDW Lymph % (Auto) [place] % (Auto) Lymph # [place] # Seg Neutrophils % BUN 23 H Creatinine 1.6 H D Glucose 108 H Urine WBC (Auto) Urine Creatinine Urine Total Protein
[2017-01-19] MEDS ORDERED: NACL 0.9% 500 ML 500 ML ONE (12:58)
--- NOTE | 2017-01-19 13:05 | Progress Note ---
Assessment and Plan Assessment and plan: 1. Shock. Etiology is secondary to hypovolemia versus sepsis versus cardiogenic. VQ scan is negative for PE. Echocardiogram pending. Etiology likely secondary to hypovolemia from dehydration. Continue IV fluid normal saline boluses. Wean pressors as tolerated. Follow blood cultures and trend lactic acid levels. 2. Acute kidney injury/ATN. Acute kidney injury is most likely due to acute tubular necrosis in the setting of hypotension/shock. Continue IV fluid hydration and supportive care. Avoid nephrotoxins, NSAIDs and IV contrast. Follow-up BMP in the morning. Nephrology following. Creatinine has improved to 1.6 3. Vasomotor nephropathy. Etiology secondary to above. 4. Syncope. Etiology secondary to vasovagal episode on the commode and hypotension. Follow-up echocardiogram. 5. Anemia. Follow-up Hemoccult stools. History Interval history: 61-year-old male who presented through the emergency department with diagnosis of syncope and refractory hypotension currently requiring pressors. No new issues overnight or complaints. Hospitalist Physical - Constitutional Vitals: Temp Pulse Resp BP Pulse Ox 99.3 F 85 15 108/60 98 01/19/17 08:00 01/19/17 12:11 01/19/17 12:11 01/19/17 12:11 01/19/17 12:11 General appearance: Present: no acute distress, well-nourished - EENT Eyes: Present: PERRL, EOM intact ENT: hearing intact, clear oral mucosa, dentition normal - Neck Neck: Present: supple, normal ROM - Respiratory Respiratory effort: normal Respiratory: bilateral: diminished - Cardiovascular Rhythm: regular Heart Sounds: Present: S1 & S2. Absent: gallop, rub - Extremities Extremities: no ischemia, No edema, Full ROM - Abdominal General gastrointestinal: soft, non-tender, non-distended, normal bowel sounds - Integumentary Integumentary: Present: clear, warm, dry - Neurologic Neurologic: CNII-XII intact, moves all extremities Results - Labs CBC & Chem 7: 01/19/17 05:30 01/19/17 05:30 Labs: Laboratory Last Values WBC 10.1 K/mm3 (4.5-11.0) 01/19/17 05:30 RBC 3.04 M/mm3 (3.65-5.03) L 01/19/17 05:30 Hgb 8.1 gm/dl (11.8-15.2) L 01/19/17 05:30 Hct 25.0 % (35.5-45.6) L 01/19/17 05:30 MCV 82 fl (84-94) L 01/19/17 05:30 MCH 27 pg (28-32) L 01/19/17 05:30 MCHC 33 % (32-34) 01/19/17 05:30 RDW 17.5 % (13.2-15.2) H 01/19/17 05:30 Plt Count 378 K/mm3 (140-440) 01/19/17 05:30 Lymph % (Auto) 9.7 % (13.4-35.0) L 01/19/17 05:30 [place] % (Auto) 12.9 % (0.0-7.3) H 01/19/17 05:30 Eos % (Auto) 4.0 % (0.0-4.3) 01/19/17 05:30 Baso % (Auto) 1.1 % (0.0-1.8) 01/19/17 05:30 Lymph # 1.0 K/mm3 (1.2-5.4) L 01/19/17 05:30 [place] # 1.3 K/mm3 (0.0-0.8) H 01/19/17 05:30 Eos # 0.4 K/mm3 (0.0-0.4) 01/19/17 05:30 Baso # 0.1 K/mm3 (0.0-0.1) 01/19/17 05:30 Seg Neutrophils % 72.3 % (40.0-70.0) H 01/19/17 05:30 Seg Neutrophils # 7.3 K/mm3 (1.8-7.7) 01/19/17 05:30 PT 15.9 Sec. (12.2-14.9) H 01/17/17 15:11 INR 1.28 (0.87-1.13) H 01/17/17 15:11 APTT 30.1 Sec. (24.2-36.6) 01/17/17 15:11 D-Dimer 5112.91 ng/mlDDU (0-234) H 01/17/17 15:11 Sodium 138 mmol/L (137-145) 01/19/17 05:30 Potassium 3.9 mmol/L (3.6-5.0) 01/19/17 05:30 Chloride 98.7 mmol/L (98-107) 01/19/17 05:30 Carbon Dioxide 26 mmol/L (22-30) 01/19/17 05:30 Anion Gap 17 mmol/L 01/19/17 05:30 BUN 23 mg/dL (9-20) H 01/19/17 05:30 Creatinine 1.6 mg/dL (0.8-1.5) H D 01/19/17 05:30 Estimated GFR 54 ml/min 01/19/17 05:30 BUN/Creatinine Ratio 14.37 % 01/19/17 05:30 Glucose 108 mg/dL (75-100) H 01/19/17 05:30 Calcium 9.2 mg/dL (8.4-10.2) 01/19/17 05:30 Total Creatine Kinase 69 units/L (55-170) 01/17/17 15:11 CK-MB (CK-2) 1.4 ng/mL (0.0-4.0) 01/17/17 15:11 CK-MB (CK-2) Rel Index 2.0 (0-4) 01/17/17 15:11 Troponin T 0.046 ng/mL (0.00-0.029) H 01/17/17 15:11 NT-Pro-B Natriuret Pep 478.5 pg/mL (0-900) 01/17/17 15:11 Triglycerides 55 mg/dL (2-149) 01/17/17 15:11 Cholesterol 100 mg/dL (50-199) 01/17/17 15:11 LDL Cholesterol Direct 47 mg/dL (50-130) L 01/17/17 15:11 HDL Cholesterol 42 mg/dL (40-59) 01/17/17 15:11 Cholesterol/HDL Ratio 2.38 % 01/17/17 15:11 TSH 2.860 mlU/mL (0.270-4.200) 01/17/17 15:11 Urine Color Straw (Yellow) 01/18/17 13:48 Urine Turbidity Clear (Clear) 01/18/17 13:48 Urine pH 5.0 (5.0-7.0) 01/18/17 13:48 Ur Specific [place] 1.005 (1.003-1.030) 01/18/17 13:48 Urine Protein <15 mg/dl mg/dL (Negative) 01/18/17 13:48 Urine Glucose (UA) >=500 mg/dL (Negative) 01/18/17 13:48 Urine Ketones Neg mg/dL (Negative) 01/18/17 13:48 Urine Blood Mod (Negative) 01/18/17 13:48 Urine Nitrite Neg (Negative) 01/18/17 13:48 Urine Bilirubin Neg (Negative) 01/18/17 13:48 Urine Urobilinogen < 2.0 mg/dL (<2.0) 01/18/17 13:48 Ur Leukocyte Esterase Neg (Negative) 01/18/17 13:48 Urine WBC (Auto) 3.0 /HPF (0.0-6.0) 01/18/17 13:48 Urine RBC (Auto) < 1.0 /HPF (0.0-6.0) 01/18/17 13:48 U Epithel Cells (Auto) < 1.0 /HPF (0-13.0) 01/18/17 03:19 Urine Bacteria (Auto) 1+ /HPF (Negative) 01/18/17 13:48 Ur Transition Epith Cell < 1 /HPF 01/18/17 13:48 Granular Casts 2 /LPF 01/18/17 13:48 Urine Mucus Few /HPF 01/18/17 13:48 Urine Osmolality 310 Mosm/kg 01/18/17 13:48 Urine Creatinine 36.1 mg/dL (0.1-20.0) H 01/18/17 13:48 Urine Microalbumin 1.2 mg/dL (0.1-34.0) 01/18/17 13:48 Microalb/Creat Ratio 33.2 ug/mg 01/18/17 13:48 Urine Sodium 90 mEq/L 01/18/17 13:48 Urine Total Protein 19 mg/dL (5-11.8) H 01/18/17 13:48
[2017-01-19] MEDS: NACL 0.9% 1000 ML 1,000 ML IV SCH (16:22)
[2017-01-20] MEDS: LEVOPHED DRIP 4 MG/NS 250 ML 4 MG/250 ML BAG IV SCH ×2 (00:20→06:44)
[2017-01-20] MEDS: NACL 0.9% 1000 ML 1,000 ML IV SCH ×3 (02:11→18:01)
--- NOTE | 2017-01-20 03:08 | Consultation ---
CONSULTING PHYSICIAN: Homer Smith MD REASON FOR CONSULTATION: Hypotension. CHIEF COMPLAINT AND HISTORY OF PRESENT ILLNESS: The patient is a 61-year-old -[place] male with past medical history significant amongst other things both for a diagnosis of obstructive sleep apnea for which he should be on CPAP, but also history of hypertension for which he is on a low dose diuretic in the form of hydrochlorothiazide, came to the Emergency Room, brought from home secondary to a syncopal episode or near syncope. According to the records, family members found him, I think in the bathroom floor, on the floor in the room beside the bedside commode unresponsive. His eyes were rolled in the back of the head but remained open throughout the time. At that point, they felt he had stopped breathing, so they are started some chest compressions. At some point, he regained consciousness. He states he was having a bowel movement and then he felt like he needed to get out some more and he essentially did a Valsalva type maneuver and since then he cannot remember what happened. He denied any significant symptoms such as orthostatic dizziness or excessive thirst prior to this. Family does mention that he had an episode of vomiting and some diarrhea a few days prior to this presentation. He was brought into the Emergency Room. He was found to be hypotensive. He did take his lisinopril/hydrochlorothiazide medication as well as carvedilol. In the ER, he was evaluated and found to indeed be hypotensive, also with acute kidney injury as far as we can tell. He was admitted with essentially hypotension, sepsis syndrome, started on IV Fleet's. He was started on vasopressors and admitted to the Intensive Care Unit. When I stopped by to see him, he was lying in bed, feeling a little bit better. He was off vasopressor. Again, he does admit to noncompliance with his BiPAP machine, but states he really has no trouble with the mask interface and he is really unclear why he does not use it. He denied any chest pains, again denied palpitations. Denied any premonition or any presyncopal ideations. Of note, family mentions that he has been significantly depressed of late and lost his job of 23 years. They do feel that might have a role to play in his overall symptoms. This is as much of the history of presentation as I have. PAST MEDICAL HISTORY: Again, significant for hypertension, diabetes, arthritis, history of seizures as a baby, history of obstructive sleep apnea, history of chronic back pain, history of gout. PAST SURGICAL HISTORY: Denied. MEDICATIONS: He was on at the time I stopped by to see him, according to the medication administration record included the following: He had been on heparin 5000 units subcutaneous q.8h., Dilaudid 0.5 mg IV q.3h. p.r.n., Levophed drip had been going at 2 mcg per minute, Zofran 4 mg IV q.4h. p.r.n. ALLERGIES: Penicillins. Nature of this allergy is unknown. DIET: Morbidly obese. No significant weight loss or gain in the preceding few weeks to months. FAMILY AND SOCIAL HISTORY: Lives in the community, I believe he is . He is a never smoker. Denies alcohol or illicit drug use or abuse. Family history, otherwise noncontributory. REVIEW OF SYSTEMS: No new onset seizures as far as he knows. No new onset focal weakness. He did have the syncopal episode. No gross hematochezia. He did have diarrhea. No melena, no gross hematuria. No dysuria. No hematemesis. He did have the emesis. No hemoptysis, no palpitations, no chest pains, no new onset of leg pain or swelling either unilaterally or bilaterally. Complete review of systems obtained. Pertinent positives and/or negatives as in body of history above, otherwise they are noncontributory. PHYSICAL EXAMINATION: VITAL SIGNS: At presentation, he was afebrile, temperature 97.8, pulse was 100, respiratory rate was 18, blood pressure was as low as 77/47 in the Emergency Room. O2 sats were 97%, inspired oxygen concentration was not recorded. HEAD, EYES, EARS, NOSE, AND THROAT: Pupils are equal, round, about 3 mm, reactive to light. Extraocular muscle movements are intact. Oropharynx is a Mallampati #4 oropharynx. No significant posterior oropharyngeal erythema. Grossly, no palpable lymph nodes in the supraclavicular or submandibular lymph node chains. He has a right IJ central vascular line in place. HEART: Heart sounds 1 and 2 are heard. There were regular rate and rhythm at the time of my evaluation. I could not appreciate a carotid bruit. LUNGS: Clear to auscultation bilaterally, but with distant breath sounds. ABDOMEN: Soft, full, bowel sounds are positive, nontender. EXTREMITIES: He has chronic venous stasis changes to both lower extremities. No significant digital clubbing or cyanosis. No edema. He is tender to touch. NEUROLOGIC: The exam was grossly nonfocal, but movement in his lower extremities and back is limited by pain. LABORATORY DATA: From my review are as follows: Admission white cell count 13,400 with a hemoglobin of 8.7, hematocrit of 27.5, platelet count of 498. INR was 1.28. D-dimer was 5112. Serum sodium was 135, potassium was 3.8, chloride was 96, bicarbonate was 22, BUN 45, creatinine 3.3, and glucose of 140. Troponin was 0.046, LDL cholesterol 47. BNP within normal limits. TSH within normal limits. Urinalysis negative for nitrites. He had trace leukocyte esterase, 11 white cells per high power field. Blood cultures are no growth to date. He did have a V/Q scan at admission. The V/Q scan was reported as a normal lung scan. Chest x-ray has been reviewed. I have also reviewed the radiologist's interpretation. He does have the right IJ central line with the tip in the distal SVC/right atrial junction. No gross pneumothorax, no gross bony fracture, and really no evidence of an acute process. It is slightly rotated to the right. ASSESSMENT AND PLAN: We have an elderly gentleman in with a syncopal episode, unclear the reason why, one of the things I have discussed with him is the importance of treating his sleep apneas, that left untreated for any length of time could produce this kind of altered mental status or near syncopal episodes. From a respiratory standpoint, I will complete the venous thromboembolic disorder workup with bilateral lower extremity Dopplers. Otherwise, supplemental oxygen as needed to keep sats greater than 92-94%. I have told him the importance of using his CPAP machine at night. I will empirically put him on BiPAP at bedtime, 16/8, backup rate of about 12, and we will get an arterial blood gas on that in the morning to ensure adequate ventilation. From a cardiovascular standpoint, he is doing better. I do feel there is an element of intravascular volume depletion at play; however, it is important also that we did not miss ____ arrhythmia that contributed to his symptoms or some other primary cardiomyopathy. I believe a 2D echocardiogram has been ordered and if that has not been done we will be going ahead to order one. Otherwise, we will keep him on telemetry in the short while . Acute coronary syndrome workup was not done. I will be getting a troponin level on this gentleman in with a syncopal episode, if that was done actually was slightly elevated at 0.046. I will review the EKG. Now from a renal standpoint, I note the azotemia. I do feel there is a prerenal element. He seems to have shown some improvement either with better blood pressures and/or IV hydration. I should mention in the Cardiology section above that I will be getting CVPs and trending them as necessary, but in the short term. Again, gentle volume of hydration, I will continue that and then promote increased oral intake, no major electrolyte abnormalities at this point. Inputs and outputs will be monitored. Electrolytes will be corrected as necessary. From a GI and nutritional standpoint, oral nutrition will be the feeding modality of choice. I will put him on GI prophylaxis. Aspiration precautions will be maintained. From a [employer] [address] [employer] standpoint, I will get bilateral ultrasounds of the carotid as part of the syncope workup and Neurology evaluation will be at the behest of the attending physician. It is unclear if there is any benefit from a CT of the brain at this time, the exam is nonfocal at this point, I think we will follow him clinically and watch him. We have another explanations for his symptoms at presentation. Now from a psychiatric standpoint, the mentions that there is a significant depression element here and that he is in denial. They did not mention any suicidal thoughts, but he finally says if he is depressed that it has nothing to do with his job, it is probably is more with his health issues. They are requesting and I do feel that it will be of some benefit to, a psych evaluation. Again, he denies any suicidal thoughts or ideations, but I will go ahead and get psychiatry involved. From a general and hospital healthcare maintenance standpoint, he is going to be on GI prophylaxis. He is on DVT prophylaxis. Flu and pneumonia vaccination will be per protocol. Thank you very much for the consult, Dr. Smith. I will follow along and make further recommendations as picture progresses/becomes clearer. JOB# [id number] ALYCIA/ANUPAMA
[2017-01-20 04:44] LABS: Basophils % (Auto) 0.6 % (0.0-1.8); Eosinophils % (Auto) 4.9 % (0.0-4.3); Hematocrit 25.3 % (35.5-45.6); Hemoglobin 8.2 gm/dl (11.8-15.2); Mean Corpuscular HGB Conc 32 % (32-34); Mean Corpuscular Hemoglobin 27 pg (28-32); Mean Corpuscular Volume 83 fl (84-94); Platelet Count 358 K/mm3 (140-440); Red Blood Count 3.06 M/mm3 (3.65-5.03); Red Cell Distribution Width 17.2 % (13.2-15.2); White Blood Count 9.9 K/mm3 (4.5-11.0)
[2017-01-20 05:22] LABS: BUN/Creatinine Ratio 12.66; Calcium 8.7 mg/dL (8.4-10.2); Chloride 99.4 mmol/L (98-107)
[2017-01-20] MEDS: HEPARIN SUB-Q SCH ×3 (06:43→22:48)
--- NOTE | 2017-01-20 07:37 | Vascular Lab Report ---
LOWER EXTREMITY VENOUS DUPLEX: REASON FOR EXAM: Leg pain. COMMENTS ON THE RIGHT: All veins visualized are freely compressible without evidence of internal echogenicity. Flow is spontaneous and phasic throughout. COMMENTS ON THE LEFT: All veins visualized are freely compressible without evidence of internal echogenicity. Flow is spontaneous and phasic throughout. IMPRESSION: No evidence of acute or chronic deep venous thrombosis in either lower extremity.
[2017-01-20 07:40] LABS: Anion Gap 17 mmol/L; BUN/Creatinine Ratio 13.07; Blood Urea Nitrogen 17 mg/dL (9-20); Calcium 8.9 mg/dL (8.4-10.2); Carbon Dioxide 25 mmol/L (22-30); Chloride 99.5 mmol/L (98-107); Glucose 114 mg/dL (75-100); Iron 19 ug/dL (49-181); Potassium 4.1 mmol/L (3.6-5.0); Sodium 137 mmol/L (137-145); Total Iron Binding Capacity 99 mcg/dL (250-450)
--- NOTE | 2017-01-20 08:23 | Progress Note ---
Assessment and Plan - Patient Problems (1) Acute kidney failure with tubular necrosis Current Visit: Yes Status: Acute Plan to address problem: acute kidney injury is most likely due to acute tubular necrosis in the setting of hypotension, cardiogenic vs septic shock. no signficant proteinuria seen, do not suspect acute glomerular injury. in recovery phase, with Cr improving to 1.3mg/dl, pt with increased urine output. continue supportive care for GLORIA/ATN, avoid further nephrotoxins, NSAIDs, IV contrast, keep MAP >65mmHg (2) Shock Current Visit: Yes Status: Acute Plan to address problem: hypovolemic vs septic vs cardiogenic. V/Q scan is negative for PE, venous duplex negative for DVT b/l. EKG shows SR w/ premature atrial complexes. awaiting Echocardiogram. cont IV NS boluses prn/levophed to keep MAP 65mmHg. (3) Hypotension Current Visit: Yes Status: Acute Qualifiers: Hypotension type: unspecified hypotension type Trimester: T Qualified Code(s): I95.9 - Hypotension, unspecified Plan to address problem: cont IV NS boluses prn/levophed to keep MAP 65mmHg. (4) Syncope Current Visit: Yes Status: Acute Qualifiers: Syncope type: unspecified Encounter type: E Qualified Code(s): R55 - Syncope and collapse Plan to address problem: syncope w/u as per primary attending. check Echocardiogram (5) Anemia, chronic disease Current Visit: Yes Status: Acute Plan to address problem: iron deficiency, start po iron supplementation. (6) Obstructive sleep apnea on CPAP Current Visit: Yes Status: Acute Plan to address problem: follow puletienne shoemaker Subjective Date of service: 01/20/17 Interval history: pt awake, alert, in NAD, denies SOB, CP, palpitations, fever, chills, n/v/d. remains on levophed for vasopressor support. Objective - Vital Signs Vital signs: Vital Signs - 12hr 01/19/17 01/19/17 01/19/17 20:21 20:30 20:41 Temperature Pulse Rate 89 89 90 Respiratory 21 30 H 15 Rate Blood Pressure 108/62 115/56 115/56 O2 Sat by Pulse 94 94 98 Oximetry 01/19/17 01/19/17 01/19/17 20:51 21:00 22:30 Temperature Pulse Rate 94 H 87 86 Respiratory 21 25 H 25 H Rate Blood Pressure 115/56 119/59 113/59 O2 Sat by Pulse 98 94 93 Oximetry 01/19/17 01/19/17 01/19/17 22:41 22:51 23:00 Temperature Pulse Rate 89 88 84 Respiratory 19 14 28 H Rate Blood Pressure 113/59 113/59 115/60 O2 Sat by Pulse 97 97 92 Oximetry 01/19/17 01/19/17 01/19/17 23:11 23:21 23:30 Temperature Pulse Rate 87 89 88 Respiratory 13 16 15 Rate Blood Pressure 115/60 115/60 117/58 O2 Sat by Pulse 98 97 95 Oximetry 01/19/17 01/19/17 01/19/17 23:41 23:43 23:51 Temperature 100.9 F H Pulse Rate 88 86 Respiratory 25 H 18 Rate Blood Pressure 117/58 117/58 O2 Sat by Pulse 96 96 Oximetry 01/20/17 01/20/17 01/20/17 00:00 00:11 00:21 Temperature Pulse Rate 92 H 87 88 Respiratory 26 H 21 26 H Rate Blood Pressure 112/63 117/58 117/58 O2 Sat by Pulse 95 97 97 Oximetry 01/20/17 01/20/17 01/20/17 00:30 00:41 00:51 Temperature Pulse Rate 87 97 H 91 H Respiratory 27 H 17 17 Rate Blood Pressure 123/61 123/61 123/61 O2 Sat by Pulse 94 97 95 Oximetry 01/20/17 01/20/17 01/20/17 01:00 01:11 01:21 Temperature Pulse Rate 90 87 91 H Respiratory 19 21 18 Rate Blood Pressure 120/62 120/62 120/62 O2 Sat by Pulse 94 97 96 Oximetry 01/20/17 01/20/17 01/20/17 01:30 01:41 01:51 Temperature Pulse Rate 87 89 91 H Respiratory 22 18 25 H Rate Blood Pressure 114/61 120/62 120/62 O2 Sat by Pulse 95 97 95 Oximetry 01/20/17 01/20/17 01/20/17 02:00 02:11 02:21 Temperature Pulse Rate 85 89 91 H Respiratory 29 H 26 H 23 Rate Blood Pressure 120/58 114/61 114/61 O2 Sat by Pulse 94 98 97 Oximetry 01/20/17 01/20/17 01/20/17 02:31 02:41 02:51 Temperature Pulse Rate 88 95 H 102 H Respiratory 30 H 16 19 Rate Blood Pressure 104/59 104/59 104/59 O2 Sat by Pulse 94 98 98 Oximetry 01/20/17 01/20/17 01/20/17 03:01 03:11 03:21 Temperature Pulse Rate 92 H 90 91 H Respiratory 33 H 21 27 H Rate Blood Pressure 128/65 128/65 128/65 O2 Sat by Pulse 94 97 91 Oximetry 01/20/17 01/20/17 01/20/17 03:31 03:41 03:51 Temperature Pulse Rate 89 88 87 Respiratory 31 H 25 H 26 H Rate Blood Pressure 122/66 122/66 122/66 O2 Sat by Pulse 95 98 97 Oximetry 01/20/17 01/20/17 01/20/17 04:01 04:11 04:15 Temperature 100.0 F H Pulse Rate 88 86 Respiratory 26 H 24 Rate Blood Pressure 122/66 122/66 O2 Sat by Pulse 95 96 Oximetry 01/20/17 01/20/17 01/20/17 04:21 04:31 04:41 Temperature Pulse Rate 90 94 H 87 Respiratory 27 H 19 22 Rate Blood Pressure 122/66 127/64 127/64 O2 Sat by Pulse 97 94 96 Oximetry 01/20/17 01/20/17 01/20/17 04:51 05:01 05:11 Temperature Pulse Rate 87 87 85 Respiratory 14 29 H 21 Rate Blood Pressure 127/64 133/66 133/66 O2 Sat by Pulse 97 94 84 Oximetry 01/20/17 01/20/17 01/20/17 05:21 05:31 05:41 Temperature Pulse Rate 84 73 92 H Respiratory 25 H 26 H 23 Rate Blood Pressure 133/66 126/61 126/61 O2 Sat by Pulse 97 96 96 Oximetry 01/20/17 01/20/17 01/20/17 05:51 06:00 06:11 Temperature Pulse Rate 92 H 91 H 87 Respiratory 25 H 23 25 H Rate Blood Pressure 126/61 123/65 123/65 O2 Sat by Pulse 95 95 94 Oximetry 01/20/17 01/20/17 01/20/17 06:21 06:30 06:41 Temperature Pulse Rate 87 98 H 89 Respiratory 17 26 H 28 H Rate Blood Pressure 123/65 133/74 133/74 O2 Sat by Pulse 99 95 97 Oximetry - General Appearance General appearance: well-developed, well-nourished, appears stated age EENT: ATNC, PERRL, mucous membranes moist Neck: no JVD Respiratory: Present: Clear to Ascultation Cardiology: regular, S1S2 Gastrointestinal: normal, normoactive bowel sounds Integumentary: no rash, other (no edema ) Neurologic: no focal deficit, alert and oriented x3, strength 5/5, CN 3-12 intact Psychiatric: mood/affect appropriate, cooperative - Lab 01/20/17 04:20 01/20/17 06:52 Most recent lab results Calcium 8.9 mg/dL (8.4-10.2) 01/20/17 06:52 Urine Creatinine 36.1 mg/dL (0.1-20.0) H 01/18/17 13:48 Urine Sodium 90 mEq/L 01/18/17 13:48 Urine Total Protein 19 mg/dL (5-11.8) H 01/18/17 13:48
[2017-01-20] MEDS: PEPCID PO SCH (09:34)
--- NOTE | 2017-01-20 11:18 | Progress Note ---
Assessment and Plan - Patient Problems (1) Morbid obesity Current Visit: Yes Status: Acute Qualifiers: Obesity type: O Plan to address problem: - weight loss counselled - be compliant with CPAP therapy - diet and exercise (2) GLORIA (acute kidney injury) Current Visit: Yes Status: Acute Plan to address problem: - resolved - continue IV hydration (3) Hypotension Current Visit: Yes Status: Acute Qualifiers: Hypotension type: unspecified hypotension type Trimester: T Qualified Code(s): I95.9 - Hypotension, unspecified Plan to address problem: - continue IVF - wean levophed for MAP > 60mmHg - dopplers negative for DVT - follow 2D ECHO report (4) Obstructive sleep apnea on CPAP Current Visit: Yes Status: Acute Plan to address problem: - scheduled BIPAP qhs - oxygen to keep sats >/=92% while asleep also (5) Syncope Current Visit: Yes Status: Acute Qualifiers: Syncope type: unspecified Encounter type: E Qualified Code(s): R55 - Syncope and collapse Plan to address problem: - cardiac enzymes negative - VTE w/up negative - carotid dopplers negative - no recurrence Subjective Date of service: 01/20/17 Principal diagnosis: Hypotension Interval history: Seen and examined at bedside; 24 hour events reviewed; nursing and respiratory care staff consulted; no adverse overnight events reported to me; resting in bed ; denies acute chest pains or increased SOB; No F/C/N/V Objective Vital Signs - 12hr 01/19/17 01/19/17 01/19/17 23:21 23:30 23:41 Temperature Pulse Rate 89 88 88 Respiratory 16 15 25 H Rate Blood Pressure 115/60 117/58 117/58 O2 Sat by Pulse 97 95 96 Oximetry 01/19/17 01/19/17 01/20/17 23:43 23:51 00:00 Temperature 100.9 F H Pulse Rate 86 92 H Respiratory 18 26 H Rate Blood Pressure 117/58 112/63 O2 Sat by Pulse 96 95 Oximetry 01/20/17 01/20/17 01/20/17 00:11 00:21 00:30 Temperature Pulse Rate 87 88 87 Respiratory 21 26 H 27 H Rate Blood Pressure 117/58 117/58 123/61 O2 Sat by Pulse 97 97 94 Oximetry 01/20/17 01/20/17 01/20/17 00:41 00:51 01:00 Temperature Pulse Rate 97 H 91 H 90 Respiratory 17 17 19 Rate Blood Pressure 123/61 123/61 120/62 O2 Sat by Pulse 97 95 94 Oximetry 01/20/17 01/20/17 01/20/17 01:11 01:21 01:30 Temperature Pulse Rate 87 91 H 87 Respiratory 21 18 22 Rate Blood Pressure 120/62 120/62 114/61 O2 Sat by Pulse 97 96 95 Oximetry 01/20/17 01/20/17 01/20/17 01:41 01:51 02:00 Temperature Pulse Rate 89 91 H 85 Respiratory 18 25 H 29 H Rate Blood Pressure 120/62 120/62 120/58 O2 Sat by Pulse 97 95 94 Oximetry 01/20/17 01/20/17 01/20/17 02:11 02:21 02:31 Temperature Pulse Rate 89 91 H 88 Respiratory 26 H 23 30 H Rate Blood Pressure 114/61 114/61 104/59 O2 Sat by Pulse 98 97 94 Oximetry 01/20/17 01/20/17 01/20/17 02:41 02:51 03:01 Temperature Pulse Rate 95 H 102 H 92 H Respiratory 16 19 33 H Rate Blood Pressure 104/59 104/59 128/65 O2 Sat by Pulse 98 98 94 Oximetry 01/20/17 01/20/17 01/20/17 03:11 03:21 03:31 Temperature Pulse Rate 90 91 H 89 Respiratory 21 27 H 31 H Rate Blood Pressure 128/65 128/65 122/66 O2 Sat by Pulse 97 91 95 Oximetry 01/20/17 01/20/17 01/20/17 03:41 03:51 04:01 Temperature Pulse Rate 88 87 88 Respiratory 25 H 26 H 26 H Rate Blood Pressure 122/66 122/66 122/66 O2 Sat by Pulse 98 97 95 Oximetry 01/20/17 01/20/17 01/20/17 04:11 04:15 04:21 Temperature 100.0 F H Pulse Rate 86 90 Respiratory 24 27 H Rate Blood Pressure 122/66 122/66 O2 Sat by Pulse 96 97 Oximetry 01/20/17 01/20/17 01/20/17 04:31 04:41 04:51 Temperature Pulse Rate 94 H 87 87 Respiratory 19 22 14 Rate Blood Pressure 127/64 127/64 127/64 O2 Sat by Pulse 94 96 97 Oximetry 01/20/17 01/20/1717 05:01 05:11 05:21 Temperature Pulse Rate 87 85 84 Respiratory 29 H 21 25 H Rate Blood Pressure 133/66 133/66 133/66 O2 Sat by Pulse 94 84 97 Oximetry 01/20/17 01/20/17 01/20/17 05:31 05:41 05:51 Temperature Pulse Rate 73 92 H 92 H Respiratory 26 H 23 25 H Rate Blood Pressure 126/61 126/61 126/61 O2 Sat by Pulse 96 96 95 Oximetry 01/20/17 01/20/17 01/20/17 06:00 06:11 06:21 Temperature Pulse Rate 91 H 87 87 Respiratory 23 25 H 17 Rate Blood Pressure 123/65 123/65 123/65 O2 Sat by Pulse 95 94 99 Oximetry 01/20/17 01/20/17 01/20/17 06:30 06:41 06:51 Temperature Pulse Rate 98 H 89 93 H Respiratory 26 H 28 H 21 Rate Blood Pressure 133/74 133/74 133/74 O2 Sat by Pulse 95 97 95 Oximetry 01/20/17 01/20/17 01/20/17 07:01 07:11 07:21 Temperature Pulse Rate 88 86 88 Respiratory 21 16 14 Rate Blood Pressure 133/74 133/74 120/65 O2 Sat by Pulse 97 95 97 Oximetry 01/20/17 01/20/17 01/20/17 07:30 07:41 07:51 Temperature Pulse Rate 88 88 84 Respiratory 22 15 21 Rate Blood Pressure 128/62 128/62 128/62 O2 Sat by Pulse 94 94 94 Oximetry 01/20/17 01/20/17 01/20/17 08:01 08:11 08:21 Temperature Pulse Rate 85 87 88 Respiratory 21 28 H 11 L Rate Blood Pressure 126/58 126/58 126/58 O2 Sat by Pulse 95 93 96 Oximetry 01/20/17 01/20/17 01/20/17 08:31 08:41 08:51 Temperature Pulse Rate 88 90 90 Respiratory 13 14 16 Rate Blood Pressure 127/65 127/65 127/65 O2 Sat by Pulse 94 98 98 Oximetry 01/20/17 01/20/17 01/20/17 09:00 09:11 09:21 Temperature Pulse Rate 90 91 H 88 Respiratory 13 16 17 Rate Blood Pressure 130/72 130/72 130/72 O2 Sat by Pulse 94 98 97 Oximetry 01/20/17 01/20/17 01/20/17 09:31 09:41 09:51 Temperature Pulse Rate 90 89 89 Respiratory 26 H 18 20 Rate Blood Pressure 125/69 125/69 125/69 O2 Sat by Pulse 95 97 98 Oximetry 01/20/17 01/20/17 10:01 10:11 Temperature Pulse Rate 90 85 Respiratory 11 L 25 H Rate Blood Pressure 114/65 114/65 O2 Sat by Pulse 96 95 Oximetry Constitutional: no acute distress, alert Eyes: non-icteric ENT: oropharynx moist Neck: supple, no lymphadenopathy Effort: mildly labored Ascultation: Bilateral: clear, diminished breath sounds Cardiovascular: regular rate and rhythm Gastrointestinal: normoactive bowel sounds, soft, non-tender, non-distended Integumentary: normal Extremities: no cyanosis, pulses normal, no ischemia or petechiae, other ( stasis dermatitis) Neurologic: normal mental status, non-focal exam, pupils equal and round, motor strength normal and Psychiatric: depressed CBC and BMP: 01/23/17 04:25 01/23/17 04:25 ABG, PT/INR, D-dimer: PT/INR, D-dimer PT 15.9 Sec. (12.2-14.9) H 01/17/17 15:11 INR 1.28 (0.87-1.13) H 01/17/17 15:11 D-Dimer 5112.91 ng/mlDDU (0-234) H 01/17/17 15:11 Abnormal lab findings: Abnormal Labs 01/18/17 01/18/17 01/19/17 03:19 13:48 05:30 RBC 3.04 L Hgb 8.1 L Hct 25.0 L MCV 82 L MCH 27 L RDW 17.5 H Lymph % (Auto) 9.7 L [place] % (Auto) 12.9 H Eos % (Auto) Lymph # 1.0 L [place] # 1.3 H Eos # Seg Neutrophils % 72.3 H BUN Creatinine Glucose Iron TIBC Ferritin Troponin T Urine WBC (Auto) 11.0 H Urine Creatinine 36.1 H Urine Total Protein 19 H 01/19/17 01/19/17 01/20/17 05:30 13:50 04:20 RBC 3.06 L Hgb 8.2 L Hct 25.3 L MCV 83 L MCH 27 L RDW 17.2 H Lymph % (Auto) 13.3 L [place] % (Auto) 10.8 H Eos % (Auto) 4.9 H Lymph # [place] # 1.1 H Eos # 0.5 H Seg Neutrophils % 70.4 H BUN 23 H Creatinine 1.6 H D Glucose 108 H Iron TIBC Ferritin Troponin T 0.056 H D Urine WBC (Auto) Urine Creatinine Urine Total Protein 01/20/17 01/20/17 01/20/17 04:20 06:52 06:52 RBC Hgb Hct MCV MCH RDW Lymph % (Auto) [place] % (Auto) Eos % (Auto) Lymph # [place] # Eos # Seg Neutrophils % BUN Creatinine Glucose 117 H 114 H Iron 19 L TIBC 99 L Ferritin 1332.0 H Troponin T Urine WBC (Auto) Urine Creatinine Urine Total Protein
--- NOTE | 2017-01-20 11:42 | Progress Note ---
Assessment and Plan Assessment and plan: 1. Shock. Improving. Etiology is secondary to hypovolemia versus sepsis versus cardiogenic. Bilateral lower extremity Dopplers and VQ scan are negative. Echocardiogram pending. Etiology likely secondary to hypovolemia from dehydration. Continue IV fluid normal saline boluses. Wean pressors as tolerated. Follow blood cultures and trend lactic acid levels. 2. Acute kidney injury/ATN. Acute kidney injury is most likely due to acute tubular necrosis in the setting of hypotension/shock. Continue IV fluid hydration and supportive care. Avoid nephrotoxins, NSAIDs and IV contrast. Follow-up BMP in the morning. Nephrology following. Creatinine has improved to 1.3 3. Vasomotor nephropathy. Etiology secondary to above. 4. Syncope. Etiology secondary to vasovagal episode on the commode and hypotension. Follow-up echocardiogram. 5. Anemia. Follow-up Hemoccult stools. History Interval history: 61-year-old male who presented through the emergency department with diagnosis of syncope and refractory hypotension currently requiring pressors. No new issues overnight or complaints. Hospitalist Physical - Constitutional Vitals: Temp Pulse Resp BP Pulse Ox 100.0 F H 85 25 H 114/65 95 01/20/17 04:15 01/20/17 10:11 01/20/17 10:11 01/20/17 10:11 01/20/17 10:11 General appearance: Present: no acute distress, well-nourished - EENT Eyes: Present: PERRL, EOM intact ENT: hearing intact, clear oral mucosa, dentition normal - Neck Neck: Present: supple, normal ROM - Respiratory Respiratory effort: normal Respiratory: bilateral: CTA - Cardiovascular Rhythm: regular Heart Sounds: Present: S1 & S2. Absent: gallop, rub - Extremities Extremities: no ischemia, No edema, Full ROM - Abdominal General gastrointestinal: soft, non-tender, non-distended, normal bowel sounds - Integumentary Integumentary: Present: clear, warm, dry - Neurologic Neurologic: CNII-XII intact, moves all extremities Results - Labs CBC & Chem 7: 01/20/17 04:20 01/20/17 06:52 Labs: Laboratory Last Values WBC 9.9 K/mm3 (4.5-11.0) 01/20/17 04:20 RBC 3.06 M/mm3 (3.65-5.03) L 01/20/17 04:20 Hgb 8.2 gm/dl (11.8-15.2) L 01/20/17 04:20 Hct 25.3 % (35.5-45.6) L 01/20/17 04:20 MCV 83 fl (84-94) L 01/20/17 04:20 MCH 27 pg (28-32) L 01/20/17 04:20 MCHC 32 % (32-34) 01/20/17 04:20 RDW 17.2 % (13.2-15.2) H 01/20/17 04:20 Plt Count 358 K/mm3 (140-440) 01/20/17 04:20 Lymph % (Auto) 13.3 % (13.4-35.0) L 01/20/17 04:20 [place] % (Auto) 10.8 % (0.0-7.3) H 01/20/17 04:20 Eos % (Auto) 4.9 % (0.0-4.3) H 01/20/17 04:20 Baso % (Auto) 0.6 % (0.0-1.8) 01/20/17 04:20 Lymph # 1.3 K/mm3 (1.2-5.4) 01/20/17 04:20 [place] # 1.1 K/mm3 (0.0-0.8) H 01/20/17 04:20 Eos # 0.5 K/mm3 (0.0-0.4) H 01/20/17 04:20 Baso # 0.1 K/mm3 (0.0-0.1) 01/20/17 04:20 Seg Neutrophils % 70.4 % (40.0-70.0) H 01/20/17 04:20 Seg Neutrophils # 7.0 K/mm3 (1.8-7.7) 01/20/17 04:20 PT 15.9 Sec. (12.2-14.9) H 01/17/17 15:11 INR 1.28 (0.87-1.13) H 01/17/17 15:11 APTT 30.1 Sec. (24.2-36.6) 01/17/17 15:11 D-Dimer 5112.91 ng/mlDDU (0-234) H 01/17/17 15:11 Sodium 137 mmol/L (137-145) 01/20/17 06:52 Potassium 4.1 mmol/L (3.6-5.0) 01/20/17 06:52 Chloride 99.5 mmol/L (98-107) 01/20/17 06:52 Carbon Dioxide 25 mmol/L (22-30) 01/20/17 06:52 Anion Gap 17 mmol/L 01/20/17 06:52 BUN 17 mg/dL (9-20) 01/20/17 06:52 Creatinine 1.3 mg/dL (0.8-1.5) 01/20/17 06:52 Estimated GFR > 60 ml/min 01/20/17 06:52 BUN/Creatinine Ratio 13.07 % 01/20/17 06:52 Glucose 114 mg/dL (75-100) H 01/20/17 06:52 Calcium 8.9 mg/dL (8.4-10.2) 01/20/17 06:52 Iron 19 ug/dL (49-181) L 01/20/17 06:52 TIBC 99 mcg/dL (250-450) L 01/20/17 06:52 Ferritin 1332.0 ng/mL (13.0-400.0) H 01/20/17 06:52 Total Creatine Kinase 69 units/L (55-170) 01/17/17 15:11 CK-MB (CK-2) 1.4 ng/mL (0.0-4.0) 01/17/17 15:11 CK-MB (CK-2) Rel Index 2.0 (0-4) 01/17/17 15:11 Troponin T 0.056 ng/mL (0.00-0.029) H D 01/19/17 13:50 NT-Pro-B Natriuret Pep 478.5 pg/mL (0-900) 01/17/17 15:11 Triglycerides 55 mg/dL (2-149) 01/17/17 15:11 Cholesterol 100 mg/dL (50-199) 01/17/17 15:11 LDL Cholesterol Direct 47 mg/dL (50-130) L 01/17/17 15:11 HDL Cholesterol 42 mg/dL (40-59) 01/17/17 15:11 Cholesterol/HDL Ratio 2.38 % 01/17/17 15:11 TSH 2.860 mlU/mL (0.270-4.200) 01/17/17 15:11 Urine Color Straw (Yellow) 01/18/17 13:48 Urine Turbidity Clear (Clear) 01/18/17 13:48 Urine pH 5.0 (5.0-7.0) 01/18/17 13:48 Ur Specific [place] 1.005 (1.003-1.030) 01/18/17 13:48 Urine Protein <15 mg/dl mg/dL (Negative) 01/18/17 13:48 Urine Glucose (UA) >=500 mg/dL (Negative) 01/18/17 13:48 Urine Ketones Neg mg/dL (Negative) 01/18/17 13:48 Urine Blood Mod (Negative) 01/18/17 13:48 Urine Nitrite Neg (Negative) 01/18/17 13:48 Urine Bilirubin Neg (Negative) 01/18/17 13:48 Urine Urobilinogen < 2.0 mg/dL (<2.0) 01/18/17 13:48 Ur Leukocyte Esterase Neg (Negative) 01/18/17 13:48 Urine WBC (Auto) 3.0 /HPF (0.0-6.0) 01/18/17 13:48 Urine RBC (Auto) < 1.0 /HPF (0.0-6.0) 01/18/17 13:48 U Epithel Cells (Auto) < 1.0 /HPF (0-13.0) 01/18/17 03:19 Urine Bacteria (Auto) 1+ /HPF (Negative) 01/18/17 13:48 Ur Transition Epith Cell < 1 /HPF 01/18/17 13:48 Granular Casts 2 /LPF 01/18/17 13:48 Urine Mucus Few /HPF 01/18/17 13:48 Urine Osmolality 310 Mosm/kg 01/18/17 13:48 Urine Creatinine 36.1 mg/dL (0.1-20.0) H 01/18/17 13:48 Urine Microalbumin 1.2 mg/dL (0.1-34.0) 01/18/17 13:48 Microalb/Creat Ratio 33.2 ug/mg 01/18/17 13:48 Urine Sodium 90 mEq/L 01/18/17 13:48 Urine Total Protein 19 mg/dL (5-11.8) H 01/18/17 13:48
[2017-01-20] MEDS ORDERED: NACL 0.9% 500 ML 500 ML IV ONE (12:36)
--- NOTE | 2017-01-20 23:51 | Consultation ---
History of Present Illness - Reason for Consult Reason for consult: psych management - Chief Complaint Chief complaint: CC: "passed out" 61 year old BM with no known psych history presented to [facility] after passing out at home. After being brought here his had noted some concern over the patient being depressed and we've been asked to consult on this. The patient notes that he is not depressed as his feels. He noted to me that he recently lost his job and while that was a unexpected event he feels that it has relieved a lot of stressors. He denies issues with sleep, focus, appetite, or energy. He denies any SI/HI/AH/VH. He denies any psychosis or euphoria. He was engaging with me. Medications and Allergies Allergies Allergy/AdvReac Type Severity Reaction Status Date / Time Penicillins Allergy Itching Verified 12/30/16 16:36 Home Medications Medication Instructions Recorded Confirmed Last Taken Type Allopurinol [Zyloprim] 100 mg PO QDAY 12/30/16 01/17/17 12/30/16 History Carvedilol [Coreg] 25 mg PO BID 12/30/16 01/17/17 12/30/16 History Lisinopril/Hydrochlorothiazide 1 tab PO QDAY 12/30/16 01/17/17 12/30/16 History [Zestoretic 20-25 mg] Folic Acid [Folvite] 1 mg PO QDAY #30 tablet 01/06/17 01/17/17 Unknown Rx HYDROcodone/APAP 7.5-325 [Story 1 each PO Q6HR PRN #120 tablet 01/06/17 Unknown Rx 7.5/325] Active Meds: Active Medications Famotidine (Pepcid) 20 mg PO QDAY [facility] Last Admin: 01/20/17 09:34 Dose: 20 mg Heparin Sodium (Porcine) (Heparin) 5,000 unit SUB-Q Q8HR [facility] Last Admin: 01/20/17 22:48 Dose: 5,000 unit Hydromorphone HCl (Dilaudid) 0.5 mg IV Q3H PRN PRN Reason: Pain , Severe (7-10) Last Admin: 01/19/17 14:26 Dose: 0.5 mg Norepinephrine (Levophed Drip 4 Mg/Ns 250 Ml) 4 mg in 250 mls @ 7.5 mls/hr IV TITR CARA; 2 MCG/MIN PRN Reason: Protocol Last Admin: 01/20/17 06:44 Dose: 10 mcg/min, 37.5 mls/hr Sodium Chloride (Nacl 0.9% 1000 Ml) 1,000 mls @ 100 mls/hr IV DIRECT CARA Last Admin: 01/20/17 18:01 Dose: 100 mls/hr Ondansetron HCl (Zofran) 4 mg IV Q4H PRN PRN Reason: Nausea And Vomiting Last Admin: 01/19/17 14:27 Dose: 4 mg Past psychiatric history - Past Medical History Past Medical History: COPD, hypertension - past Psychiatric treatment and history psychiatric treatment history: inpt, outp psych: none no SA no substance abuse - Social History Social history: other (lives with , recently lost his job, no abuse, ) Mental Status Exam - Vital signs Last Vital Signs Temp 98.8 F 01/20/17 12:00 Pulse 89 01/20/17 16:50 Resp 21 01/20/17 16:50 BP 104/62 01/20/17 16:50 Pulse Ox 95 01/20/17 16:50 - Exam Orientation: time, place, person Affect: normal Mood: appropriate Thought Process: Intact Perceptions: none Speech: normal rate and pattern Motor activity: normal Level of consciousness: alert Memory: Intact Interaction: cooperative Results Result Diagrams: 01/20/17 04:20 01/20/17 06:52 Abnormal lab results 01/20/17 01/20/17 01/20/17 Range/Units 04:20 04:20 06:52 RBC 3.06 L (3.65-5.03) M/mm3 Hgb 8.2 L (11.8-15.2) gm/dl Hct 25.3 L (35.5-45.6) % MCV 83 L (84-94) fl MCH 27 L (28-32) pg RDW 17.2 H (13.2-15.2) % Lymph % (Auto) 13.3 L (13.4-35.0) % [place] % (Auto) 10.8 H (0.0-7.3) % Eos % (Auto) 4.9 H (0.0-4.3) % [place] # 1.1 H (0.0-0.8) K/mm3 Eos # 0.5 H (0.0-0.4) K/mm3 Seg Neutrophils % 70.4 H (40.0-70.0) % Glucose 117 H 114 H (75-100) mg/dL Iron 19 L (49-181) ug/dL TIBC 99 L (250-450) mcg/dL Ferritin (13.0-400.0) ng/mL 01/20/17 Range/Units 06:52 RBC (3.65-5.03) M/mm3 Hgb (11.8-15.2) gm/dl Hct (35.5-45.6) % MCV (84-94) fl MCH (28-32) pg RDW (13.2-15.2) % Lymph % (Auto) (13.4-35.0) % [place] % (Auto) (0.0-7.3) % Eos % (Auto) (0.0-4.3) % [place] # (0.0-0.8) K/mm3 Eos # (0.0-0.4) K/mm3 Seg Neutrophils % (40.0-70.0) % Glucose (75-100) mg/dL Iron (49-181) ug/dL TIBC (250-450) mcg/dL Ferritin 1332.0 H (13.0-400.0) ng/mL All other labs normal. Assessment and Plan Assessment and plan: 61 year old BM with no known psych history presented to [facility] after passing out at home. After being brought here his had noted some concern over the patient being depressed and we've been asked to consult on this. Patient is currently denying any depression. He denies any SI/HI/VH/AH. He is pleasant and cooperative. We did discuss that losing a significant part of his life for so many years can be traumatic and ways to cope. He note that he understood and felt it would help to be more open to his . We feel that a depressed feeling is normal for a loss such as his, but patient denied any feeling that would support it being more than an adjustment issue. We discussed with the patient that should these feeling get worse or thoughts of self harm occur that he should seek professional help. At this time there is no recs with meds or follow up admission from a mental health standpoint.
[2017-01-21 06:38] LABS: Basophils % (Auto) 0.9 % (0.0-1.8); Eosinophils % (Auto) 4.8 % (0.0-4.3); Hematocrit 23.9 % (35.5-45.6); Hemoglobin 7.6 gm/dl (11.8-15.2); Mean Corpuscular HGB Conc 32 % (32-34); Mean Corpuscular Hemoglobin 27 pg (28-32); Mean Corpuscular Volume 85 fl (84-94); Platelet Count 298 K/mm3 (140-440); Red Blood Count 2.83 M/mm3 (3.65-5.03); Red Cell Distribution Width 17.9 % (13.2-15.2); White Blood Count 8.7 K/mm3 (4.5-11.0)
[2017-01-21] MEDS: HEPARIN SUB-Q SCH ×3 (06:52→22:55)
[2017-01-21] MEDS: NACL 0.9% 1000 ML 1,000 ML IV SCH (06:52)
[2017-01-21 06:53] LABS: Anion Gap 17 mmol/L; BUN/Creatinine Ratio 11.53; Blood Urea Nitrogen 15 mg/dL (9-20); Calcium 8.7 mg/dL (8.4-10.2); Carbon Dioxide 25 mmol/L (22-30); Chloride 100.2 mmol/L (98-107); Glucose 96 mg/dL (75-100); Potassium 3.8 mmol/L (3.6-5.0); Sodium 138 mmol/L (137-145)
[2017-01-21] MEDS ORDERED: CATHFLO IV ONE (09:17)
[2017-01-21] MEDS: PEPCID PO SCH (10:31)
--- NOTE | 2017-01-21 11:05 | Progress Note ---
Assessment and Plan (1) Morbid obesity Current Visit: Yes Status: Acute Qualifiers: Obesity type: O Plan to address problem: - weight loss counselled - be compliant with CPAP therapy - diet and exercise (2) GLORIA (acute kidney injury) Current Visit: Yes Status: Acute Plan to address problem: - resolved - continue IV hydration (3) Hypotension Current Visit: Yes Status: Acute Qualifiers: Hypotension type: unspecified hypotension type Trimester: T Qualified Code(s): I95.9 - Hypotension, unspecified Plan to address problem: - continue IVF - wean levophed for MAP > 60mmHg - dopplers negative for DVT - follow 2D ECHO report (4) Obstructive sleep apnea on CPAP Current Visit: Yes Status: Acute Plan to address problem: - scheduled BIPAP qhs - oxygen to keep sats >/=92% while asleep also (5) Syncope Current Visit: Yes Status: Acute Qualifiers: Syncope type: unspecified Encounter type: E Qualified Code(s): R55 - Syncope and collapse Plan to address problem: - cardiac enzymes negative - VTE w/up negative - carotid dopplers negative - no recurrence ....will see prn Subjective Date of service: 01/21/17 Principal diagnosis: Hypotension; Syncope; GLORIA Interval history: Seen and examined at bedside; 24 hour events reviewed; nursing and respiratory care staff consulted; no adverse overnight events reported to me; doing better; weaned off pressors; seen by psychiatrist; denies acute chest pains or increased SOB Objective Vital Signs - 12hr 01/21/17 01/21/17 00:00 07:30 Temperature 98.1 F 98.9 F Pulse Rate [ 97 H Left] Pulse Rate [ 88 Right] Respiratory 20 15 Rate Blood Pressure 111/62 116/69 O2 Sat by Pulse 98 99 Oximetry Constitutional: no acute distress Eyes: non-icteric ENT: oropharynx moist Neck: supple, no lymphadenopathy Effort: normal Ascultation: Bilateral: clear, diminished breath sounds Cardiovascular: regular rate and rhythm Gastrointestinal: normoactive bowel sounds, soft, non-tender, non-distended Integumentary: normal Extremities: no cyanosis, no edema, pulses normal, no ischemia or petechiae Neurologic: normal mental status, non-focal exam, pupils equal and round, motor strength normal and Psychiatric: depressed CBC and BMP: 01/23/17 04:25 01/23/17 04:25 ABG, PT/INR, D-dimer: PT/INR, D-dimer PT 15.9 Sec. (12.2-14.9) H 01/17/17 15:11 INR 1.28 (0.87-1.13) H 01/17/17 15:11 D-Dimer 5112.91 ng/mlDDU (0-234) H 01/17/17 15:11 Abnormal lab findings: Abnormal Labs 01/18/17 01/18/17 01/19/17 03:19 13:48 05:30 RBC 3.04 L Hgb 8.1 L Hct 25.0 L MCV 82 L MCH 27 L RDW 17.5 H Lymph % (Auto) 9.7 L [place] % (Auto) 12.9 H Eos % (Auto) Lymph # 1.0 L [place] # 1.3 H Eos # Seg Neutrophils % 72.3 H BUN Creatinine Glucose Iron TIBC Ferritin Troponin T Urine WBC (Auto) 11.0 H Urine Creatinine 36.1 H Urine Total Protein 19 H 01/19/17 01/19/17 01/20/17 05:30 13:50 04:20 RBC 3.06 L Hgb 8.2 L Hct 25.3 L MCV 83 L MCH 27 L RDW 17.2 H Lymph % (Auto) 13.3 L [place] % (Auto) 10.8 H Eos % (Auto) 4.9 H Lymph # [place] # 1.1 H Eos # 0.5 H Seg Neutrophils % 70.4 H BUN 23 H Creatinine 1.6 H D Glucose 108 H Iron TIBC Ferritin Troponin T 0.056 H D Urine WBC (Auto) Urine Creatinine Urine Total Protein 01/20/17 01/20/17 01/20/17 04:20 06:52 06:52 RBC Hgb Hct MCV MCH RDW Lymph % (Auto) [place] % (Auto) Eos % (Auto) Lymph # [place] # Eos # Seg Neutrophils % BUN Creatinine Glucose 117 H 114 H Iron 19 L TIBC 99 L Ferritin 1332.0 H Troponin T Urine WBC (Auto) Urine Creatinine Urine Total Protein 01/21/17 06:04 RBC 2.83 L Hgb 7.6 L Hct 23.9 L MCV MCH 27 L RDW 17.9 H Lymph % (Auto) [place] % (Auto) 10.4 H Eos % (Auto) 4.8 H Lymph # [place] # 0.9 H Eos # Seg Neutrophils % BUN Creatinine Glucose Iron TIBC Ferritin Troponin T Urine WBC (Auto) Urine Creatinine Urine Total Protein
--- NOTE | 2017-01-21 11:15 | Progress Note ---
Assessment and Plan Assessment and plan: 1. Shock. Resolved. Etiology is secondary to hypovolemia versus sepsis. No evidence of cardiogenic shock. Echocardiogram revealed Global left ventricular systolic function is normal with EF of 55%. Bilateral lower extremity Dopplers and VQ scan are negative. Etiology likely secondary to hypovolemia from dehydration. Continue IV fluid normal saline boluses as needed. Pressors have been weaned off. Blood cultures are negative. 2. Acute kidney injury/ATN. Acute kidney injury is most likely due to acute tubular necrosis in the setting of hypotension/shock. Continue IV fluid hydration and supportive care. Avoid nephrotoxins, NSAIDs and IV contrast. Follow-up BMP in the morning. Nephrology following. Creatinine has improved to 1.3 3. Vasomotor nephropathy. Etiology secondary to above. 4. Syncope. Etiology secondary to vasovagal episode on the commode and hypotension. 5. Anemia. Follow-up Hemoccult stools. 6. Deconditioning. Patient states that he has generalized weakness and is unable to ambulate. PT evaluation. History Interval history: 61-year-old male who presented through the emergency department with diagnosis of syncope and refractory hypotension currently requiring pressors. No new issues overnight or complaints. Hospitalist Physical - Constitutional Vitals: Temp Pulse Resp BP Pulse Ox 98.9 F 88 15 116/69 99 01/21/17 07:30 01/21/17 07:30 01/21/17 07:30 01/21/17 07:30 01/21/17 07:30 General appearance: Present: no acute distress, well-nourished - EENT Eyes: Present: PERRL, EOM intact ENT: hearing intact, clear oral mucosa, dentition normal - Neck Neck: Present: supple, normal ROM - Respiratory Respiratory effort: normal Respiratory: bilateral: CTA - Cardiovascular Rhythm: regular Heart Sounds: Present: S1 & S2. Absent: gallop, rub - Extremities Extremities: no ischemia, No edema, Full ROM - Abdominal General gastrointestinal: soft, non-tender, non-distended, normal bowel sounds - Integumentary Integumentary: Present: clear, warm, dry - Neurologic Neurologic: CNII-XII intact, moves all extremities Results - Labs CBC & Chem 7: 01/21/17 06:04 01/21/17 06:04 Labs: Laboratory Last Values WBC 8.7 K/mm3 (4.5-11.0) 03/25/17 06:04 RBC 2.83 M/mm3 (3.65-5.03) L 01/21/17 06:04 Hgb 7.6 gm/dl (11.8-15.2) L 01/21/17 06:04 Hct 23.9 % (35.5-45.6) L 01/21/17 06:04 MCV 85 fl (84-94) 01/21/17 06:04 MCH 27 pg (28-32) L 01/21/17 06:04 MCHC 32 % (32-34) 01/21/17 06:04 RDW 17.9 % (13.2-15.2) H 01/21/17 06:04 Plt Count 298 K/mm3 (140-440) 01/21/17 06:04 Lymph % (Auto) 15.2 % (13.4-35.0) 01/21/17 06:04 [place] % (Auto) 10.4 % (0.0-7.3) H 01/21/17 06:04 Eos % (Auto) 4.8 % (0.0-4.3) H 01/21/17 06:04 Baso % (Auto) 0.9 % (0.0-1.8) 01/21/17 06:04 Lymph # 1.3 K/mm3 (1.2-5.4) 01/21/17 06:04 [place] # 0.9 K/mm3 (0.0-0.8) H 01/21/17 06:04 Eos # 0.4 K/mm3 (0.0-0.4) 01/21/17 06:04 Baso # 0.1 K/mm3 (0.0-0.1) 01/21/17 06:04 Seg Neutrophils % 68.7 % (40.0-70.0) 01/21/17 06:04 Seg Neutrophils # 6.0 K/mm3 (1.8-7.7) 01/21/17 06:04 PT 15.9 Sec. (12.2-14.9) H 01/17/17 15:11 INR 1.28 (0.87-1.13) H 01/17/17 15:11 APTT 30.1 Sec. (24.2-36.6) 01/17/17 15:11 D-Dimer 5112.91 ng/mlDDU (0-234) H 01/17/17 15:11 Sodium 138 mmol/L (137-145) 01/21/17 06:04 Potassium 3.8 mmol/L (3.6-5.0) 01/21/17 06:04 Chloride 100.2 mmol/L (98-107) 01/21/17 06:04 Carbon Dioxide 25 mmol/L (22-30) 01/21/17 06:04 Anion Gap 17 mmol/L 01/21/17 06:04 BUN 15 mg/dL (9-20) 01/21/17 06:04 Creatinine 1.3 mg/dL (0.8-1.5) 01/21/17 06:04 Estimated GFR > 60 ml/min 01/21/17 06:04 BUN/Creatinine Ratio 11.53 % 01/21/17 06:04 Glucose 96 mg/dL (75-100) 01/21/17 06:04 Calcium 8.7 mg/dL (8.4-10.2) 01/21/17 06:04 Iron 19 ug/dL (49-181) L 01/20/17 06:52 TIBC 99 mcg/dL (250-450) L 01/20/17 06:52 Ferritin 1332.0 ng/mL (13.0-400.0) H 01/20/17 06:52 Total Creatine Kinase 69 units/L (55-170) 01/17/17 15:11 CK-MB (CK-2) 1.4 ng/mL (0.0-4.0) 01/17/17 15:11 CK-MB (CK-2) Rel Index 2.0 (0-4) 01/17/17 15:11 Troponin T 0.056 ng/mL (0.00-0.029) H D 01/19/17 13:50 NT-Pro-B Natriuret Pep 478.5 pg/mL (0-900) 01/17/17 15:11 Triglycerides 55 mg/dL (2-149) 01/17/17 15:11 Cholesterol 100 mg/dL (50-199) 01/17/17 15:11 LDL Cholesterol Direct 47 mg/dL (50-130) L 01/17/17 15:11 HDL Cholesterol 42 mg/dL (40-59) 01/17/17 15:11 Cholesterol/HDL Ratio 2.38 % 01/17/17 15:11 TSH 2.860 mlU/mL (0.270-4.200) 01/17/17 15:11 Urine Color Straw (Yellow) 01/18/17 13:48 Urine Turbidity Clear (Clear) 01/18/17 13:48 Urine pH 5.0 (5.0-7.0) 01/18/17 13:48 Ur Specific [place] 1.005 (1.003-1.030) 01/18/17 13:48 Urine Protein <15 mg/dl mg/dL (Negative) 01/18/17 13:48 Urine Glucose (UA) >=500 mg/dL (Negative) 01/18/17 13:48 Urine Ketones Neg mg/dL (Negative) 01/18/17 13:48 Urine Blood Mod (Negative) 01/18/17 13:48 Urine Nitrite Neg (Negative) 01/18/17 13:48 Urine Bilirubin Neg (Negative) 01/18/17 13:48 Urine Urobilinogen < 2.0 mg/dL (<2.0) 01/18/17 13:48 Ur Leukocyte Esterase Neg (Negative) 01/18/17 13:48 Urine WBC (Auto) 3.0 /HPF (0.0-6.0) 01/18/17 13:48 Urine RBC (Auto) < 1.0 /HPF (0.0-6.0) 01/18/17 13:48 U Epithel Cells (Auto) < 1.0 /HPF (0-13.0) 01/18/17 03:19 Urine Bacteria (Auto) 1+ /HPF (Negative) 01/18/17 13:48 Ur Transition Epith Cell < 1 /HPF 01/18/17 13:48 Granular Casts 2 /LPF 01/18/17 13:48 Urine Mucus Few /HPF 01/18/17 13:48 Urine Osmolality 310 Mosm/kg 01/18/17 13:48 Urine Creatinine 36.1 mg/dL (0.1-20.0) H 01/18/17 13:48 Urine Microalbumin 1.2 mg/dL (0.1-34.0) 01/18/17 13:48 Microalb/Creat Ratio 33.2 ug/mg 01/18/17 13:48 Urine Sodium 90 mEq/L 01/18/17 13:48 Urine Total Protein 19 mg/dL (5-11.8) H 01/18/17 13:48
[2017-01-21] MEDS ORDERED: CATHFLO ONE (12:29)
[2017-01-21] MEDS ORDERED: WATER FOR INJ (PF) 10 ML ONE (12:30)
--- NOTE | 2017-01-21 15:46 | Progress Note ---
Assessment and Plan (1) Acute kidney failure with tubular necrosis Current Visit: Yes Status: Acute Plan to address problem: Acute kidney injury is most likely due to acute tubular necrosis in the setting of hypotension, cardiogenic vs septic shock. No significant proteinuria seen, do not suspect acute glomerular injury. CR stable at 1.3 in the last 24 hrs. Adequate urine output. Continue supportive care for GLORIA/ATN, avoid further nephrotoxins, NSAIDs, IV contrast, keep MAP >65mmHg (2) Shock Current Visit: Yes Status: Acute Plan to address problem: hypovolemic vs septic vs cardiogenic. V/Q scan is negative for PE, venous duplex negative for DVT b/l. EKG shows SR w/ premature atrial complexes. awaiting Echocardiogram. Off pressers. BP improved. (3) Syncope Current Visit: Yes Status: Acute Qualifiers: Syncope type: unspecified Encounter type: E Qualified Code(s): R55 - Syncope and collapse Plan to address problem: syncope w/u as per primary attending. (5) Anemia, chronic disease Current Visit: Yes Status: Acute Plan to address problem: iron deficiency, start po iron supplementation. Hgb decreased to 7.7 today, recheck in am. Will transfuse for Hgb <7 (6) Obstructive sleep apnea on CPAP Current Visit: Yes Status: Acute Plan to address problem: Mx per pulmonary service Subjective Date of service: 01/21/17 Interval history: No SOB/CP Objective - Exam Narrative Exam: General appearance: well-developed, well-nourished, appears stated age EENT: ATNC, PERRL, mucous membranes moist Neck: no JVD, supple neck Respiratory: Present: Clear to Ascultation, no wheezing Cardiology: regular, S1S2 WNL Gastrointestinal: normal, normoactive bowel sounds, no organomegally Integumentary: no rash, other (no edema ) Neurologic: no focal deficit, alert and oriented x3, strength 5/5, CN 3-12 intact Psychiatric: mood/affect appropriate, cooperative - Vital Signs Vital signs: Vital Signs - 12hr 01/21/17 07:30 Temperature 98.9 F Pulse Rate [ 88 Right] Respiratory 15 Rate Blood Pressure 116/69 O2 Sat by Pulse 99 Oximetry - Lab 01/21/17 06:04 01/21/17 06:04 Most recent lab results Calcium 8.7 mg/dL (8.4-10.2) 01/21/17 06:04 Urine Creatinine 36.1 mg/dL (0.1-20.0) H 01/18/17 13:48 Urine Sodium 90 mEq/L 01/18/17 13:48 Urine Total Protein 19 mg/dL (5-11.8) H 01/18/17 13:48
[2017-01-21] MEDS: ZYLOPRIM PO SCH (17:12)
[2017-01-22] MEDS: NACL 0.9% 1000 ML 1,000 ML IV SCH ×3 (01:24→23:29)
[2017-01-22] MEDS: HEPARIN SUB-Q SCH ×3 (05:43→23:16)
[2017-01-22 06:39] LABS: Basophils % (Auto) 0.3 % (0.0-1.8); Eosinophils % (Auto) 5.3 % (0.0-4.3); Hematocrit 23.7 % (35.5-45.6); Hemoglobin 7.6 gm/dl (11.8-15.2); Mean Corpuscular HGB Conc 32 % (32-34); Mean Corpuscular Hemoglobin 27 pg (28-32); Mean Corpuscular Volume 83 fl (84-94); Platelet Count 300 K/mm3 (140-440); Red Blood Count 2.85 M/mm3 (3.65-5.03); Red Cell Distribution Width 17.6 % (13.2-15.2); White Blood Count 8.3 K/mm3 (4.5-11.0)
[2017-01-22 07:01] LABS: Anion Gap 17 mmol/L; Blood Urea Nitrogen 15 mg/dL (9-20); Calcium 8.9 mg/dL (8.4-10.2); Carbon Dioxide 23 mmol/L (22-30); Chloride 102.2 mmol/L (98-107); Glucose 87 mg/dL (75-100); Potassium 3.8 mmol/L (3.6-5.0); Sodium 138 mmol/L (137-145)
--- NOTE | 2017-01-22 07:57 | Discharge Summary ---
Providers - Providers Date of Admission: 01/17/17 23:17 Date of discharge: 01/22/17 Attending physician: GABINO LOJA 01/18/17 00:49 Consult to Physician [CONS] Routine Consulting Provider: YOKO MCCARTHY Reason For Exam: GLORIA Place consult to:: answering service Notified:: yes Time called:: 06:21 01/18/17 00:51 Consult to Physician [CONS] Routine Consulting Provider: NADIA CARTWRIGHT Reason For Exam: hypotension for ICU admission Place consult to:: answering service Notified:: yes Time called:: 23:25 Comment:: called on 01-17-17 @ 2325 01/18/17 01:38 Consult to Physician [CONS] Urgent Consulting Provider: NADIA CARTWRIGHT Reason For Exam: Nicardipine drip/ccu admit Place consult to:: answering service Notified:: yes 01/19/17 12:28 psychiatry consult [Consult to Mental Health] [CONS] Routine Reason For Exam: Depression Place consult to:: Psychiatrist Notified:: yes 01/21/17 11:15 Physical Therapy Evaluation and Treat [CONS] Routine Comment: Reason For Exam: ambulation 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 At one point they felt as if he stopped breathing so they put him on to the ground completely and started chest compressions. The patient regained consciousness after 1 minute of chest compression and was able to identify his family members and his girlfriend but said that he did not remember passing out. Since that time the patient just complained of feeling slightly weak and feeling dehydrated. In ER patient was found to be hypotensive with BP as low as 70/40s, requiring IV NS boluses and was initiated on levophed. Patient's labs showed signficantly elevated d-dimer >5000, however V/Q scan showed no evidence of acute PE. Pt was also found to be in acute renal failure with BUN/Cr elevated at 45/3.3mg/dl, for which renal consult is requested. His last Cr was 1.3mg/dl on previous hospitalization 01/04/17. Patient was continued with treatment of aggressive IV fluid hydration with eventual return of a creatinine back to baseline of 1.2. Patient remained on pressors until blood pressure stabilized and was weaned off. Patient was transferred to the floor. This also to be all secondary to hypovolemia, vasomotor nephropathy, acute kidney injury/18 in +/- sepsis. Echocardiogram revealed Global left ventricular systolic function is normal with EF of 55%. Bilateral lower extremity Dopplers and VQ scan are negative. Syncope was also related to above. Patient was felt to have received maximal hospital benefit and can be discharged home. Dedicated discharge time 38 minutes. Disposition: DISCHARGED TO HOME OR SELFCARE Time spent for discharge: 38 min - Discharge Diagnoses (1) Acute kidney failure with tubular necrosis Status: Acute (2) Hypotension Status: Acute Qualifiers: Hypotension type: unspecified hypotension type Trimester: T Qualified Code(s): I95.9 - Hypotension, unspecified (3) Renal failure Status: Acute (4) Shock Status: Acute (5) Syncope Status: Acute Qualifiers: Syncope type: unspecified Encounter type: E Qualified Code(s): R55 - Syncope and collapse Core Measure Documentation - Palliative Care Palliative Care/ Comfort Measures: Not Applicable - Core Measures Any of the following diagnoses?: none Exam - Constitutional Vitals: Temp Pulse Resp BP Pulse Ox 99.4 F 98 H 20 119/72 98 01/21/17 23:20 01/21/17 23:20 01/21/17 23:20 01/21/17 23:20 01/21/17 22:00 General appearance: Present: no acute distress, well-nourished - EENT Eyes: Present: PERRL ENT: hearing intact, clear oral mucosa - Neck Neck: Present: supple, normal ROM - Respiratory Respiratory effort: normal Respiratory: bilateral: CTA - Cardiovascular Heart Sounds: Present: S1 & S2. Absent: rub, click - Extremities Extremities: pulses symmetrical, No edema Peripheral Pulses: within normal limits - Abdominal General gastrointestinal: Present: soft, non-tender, non-distended, normal bowel sounds Male genitourinary: Present: normal - Integumentary Integumentary: Present: clear, warm, dry - Musculoskeletal Musculoskeletal: gait normal, strength equal bilaterally - Psychiatric Psychiatric: appropriate mood/affect, intact judgment & insight - Neurologic Neurologic: CNII-XII intact, moves all extremities Plan Activity: no restrictions Weight Bearing Status: Weight Bear as Tolerated Diet: regular Follow up with: PRIMARY CARE, [Primary Care Provider] - 3-5 Days
[2017-01-22] MEDS: ZYLOPRIM PO SCH (09:56)
[2017-01-22] MEDS: PEPCID PO SCH (09:56)
--- NOTE | 2017-01-22 10:11 | Progress Note ---
Assessment and Plan Assessment and plan: 1. Shock. Resolved. Etiology is secondary to hypovolemia versus sepsis. No evidence of cardiogenic shock. Echocardiogram revealed Global left ventricular systolic function is normal with EF of 55%. Bilateral lower extremity Dopplers and VQ scan are negative. Etiology likely secondary to hypovolemia from dehydration. Continue IV fluid normal saline boluses as needed. Pressors have been weaned off. Blood cultures are negative. 2. Acute kidney injury/ATN. Acute kidney injury is most likely due to acute tubular necrosis in the setting of hypotension/shock. Continue IV fluid hydration and supportive care. Avoid nephrotoxins, NSAIDs and IV contrast. Follow-up BMP in the morning. Nephrology following. Creatinine has improved to 1.3 3. Vasomotor nephropathy. Etiology secondary to above. 4. Syncope. Etiology secondary to vasovagal episode on the commode and hypotension. 5. Anemia. Follow-up Hemoccult stools. 6. Deconditioning. Patient states that he has generalized weakness and is unable to ambulate. PT evaluation pending. 7. Disposition. Patient may need rehabilitation placement. Await PT recommendations. - Patient Problems (1) Acute kidney failure with tubular necrosis Current Visit: Yes Status: Acute (2) Hypotension Current Visit: Yes Status: Acute Qualifiers: Hypotension type: unspecified hypotension type Trimester: T Qualified Code(s): I95.9 - Hypotension, unspecified (3) Renal failure Current Visit: Yes Status: Acute (4) Shock Current Visit: Yes Status: Acute (5) Syncope Current Visit: Yes Status: Acute Qualifiers: Syncope type: unspecified Encounter type: E Qualified Code(s): R55 - Syncope and collapse History Interval history: 61-year-old male who presented through the emergency department with diagnosis of syncope and refractory hypotension previously requiring pressors. Patient is now off pressors and normotensive on the floor. No new issues overnight. However, nursing and patient report inability to ambulate. Hospitalist Physical - Constitutional Vitals: Temp Pulse Resp BP Pulse Ox 99.3 F 94 H 20 116/58 98 01/22/17 07:30 01/22/17 07:30 01/22/17 07:30 01/22/17 07:30 01/22/17 07:30 General appearance: Present: no acute distress, well-nourished - EENT Eyes: Present: PERRL, EOM intact ENT: hearing intact, clear oral mucosa, dentition normal - Neck Neck: Present: supple, normal ROM - Respiratory Respiratory effort: normal Respiratory: bilateral: CTA - Cardiovascular Rhythm: regular Heart Sounds: Present: S1 & S2. Absent: gallop, rub - Extremities Extremities: no ischemia, No edema, Full ROM - Abdominal General gastrointestinal: soft, non-tender, non-distended, normal bowel sounds - Integumentary Integumentary: Present: clear, warm, dry - Neurologic Neurologic: CNII-XII intact, moves all extremities Results - Labs CBC & Chem 7: 01/22/17 06:02 01/22/17 06:02 Labs: Laboratory Last Values WBC 8.3 K/mm3 (4.5-11.0) 01/22/17 06:02 RBC 2.85 M/mm3 (3.65-5.03) L 01/22/17 06:02 Hgb 7.6 gm/dl (11.8-15.2) L 01/22/17 06:02 Hct 23.7 % (35.5-45.6) L 01/22/17 06:02 MCV 83 fl (84-94) L 01/22/17 06:02 MCH 27 pg (28-32) L 01/22/17 06:02 MCHC 32 % (32-34) 01/22/17 06:02 RDW 17.6 % (13.2-15.2) H 01/22/17 06:02 Plt Count 300 K/mm3 (140-440) 01/22/17 06:02 Lymph % (Auto) 13.7 % (13.4-35.0) 01/22/17 06:02 [place] % (Auto) 10.8 % (0.0-7.3) H 01/22/17 06:02 Eos % (Auto) 5.3 % (0.0-4.3) H 01/22/17 06:02 Baso % (Auto) 0.3 % (0.0-1.8) 01/22/17 06:02 Lymph # 1.1 K/mm3 (1.2-5.4) L 01/22/17 06:02 [place] # 0.9 K/mm3 (0.0-0.8) H 01/22/17 06:02 Eos # 0.4 K/mm3 (0.0-0.4) 01/22/17 06:02 Baso # 0.0 K/mm3 (0.0-0.1) 01/22/17 06:02 Seg Neutrophils % 69.9 % (40.0-70.0) 01/22/17 06:02 Seg Neutrophils # 5.8 K/mm3 (1.8-7.7) 01/22/17 06:02 PT 15.9 Sec. (12.2-14.9) H 01/17/17 15:11 INR 1.28 (0.87-1.13) H 01/17/17 15:11 APTT 30.1 Sec. (24.2-36.6) 01/17/17 15:11 D-Dimer 5112.91 ng/mlDDU (0-234) H 01/17/17 15:11 Sodium 138 mmol/L (137-145) 01/22/17 06:02 Potassium 3.8 mmol/L (3.6-5.0) 01/22/17 06:02 Chloride 102.2 mmol/L (98-107) 01/22/17 06:02 Carbon Dioxide 23 mmol/L (22-30) 01/22/17 06:02 Anion Gap 17 mmol/L 01/22/17 06:02 BUN 15 mg/dL (9-20) 01/22/17 06:02 Creatinine 1.2 mg/dL (0.8-1.5) 01/22/17 06:02 Estimated GFR > 60 ml/min 01/22/17 06:02 BUN/Creatinine Ratio 12.50 % 01/22/17 06:02 Glucose 87 mg/dL (75-100) 01/22/17 06:02 Calcium 8.9 mg/dL (8.4-10.2) 01/22/17 06:02 Iron 19 ug/dL (49-181) L 01/20/17 06:52 TIBC 99 mcg/dL (250-450) L 01/20/17 06:52 Ferritin 1332.0 ng/mL (13.0-400.0) H 01/20/17 06:52 Total Creatine Kinase 69 units/L (55-170) 01/17/17 15:11 CK-MB (CK-2) 1.4 ng/mL (0.0-4.0) 01/17/17 15:11 CK-MB (CK-2) Rel Index 2.0 (0-4) 01/17/17 15:11 Troponin T 0.056 ng/mL (0.00-0.029) H D 01/19/17 13:50 NT-Pro-B Natriuret Pep 478.5 pg/mL (0-900) 01/17/17 15:11 Triglycerides 55 mg/dL (2-149) 01/17/17 15:11 Cholesterol 100 mg/dL (50-199) 01/17/17 15:11 LDL Cholesterol Direct 47 mg/dL (50-130) L 01/17/17 15:11 HDL Cholesterol 42 mg/dL (40-59) 01/17/17 15:11 Cholesterol/HDL Ratio 2.38 % 01/17/17 15:11 TSH 2.860 mlU/mL (0.270-4.200) 01/17/17 15:11 Urine Color Straw (Yellow) 01/18/17 13:48 Urine Turbidity Clear (Clear) 01/18/17 13:48 Urine pH 5.0 (5.0-7.0) 01/18/17 13:48 Ur Specific [place] 1.005 (1.003-1.030) 01/18/17 13:48 Urine Protein <15 mg/dl mg/dL (Negative) 01/18/17 13:48 Urine Glucose (UA) >=500 mg/dL (Negative) 01/18/17 13:48 Urine Ketones Neg mg/dL (Negative) 01/18/17 13:48 Urine Blood Mod (Negative) 01/18/17 13:48 Urine Nitrite Neg (Negative) 01/18/17 13:48 Urine Bilirubin Neg (Negative) 01/18/17 13:48 Urine Urobilinogen < 2.0 mg/dL (<2.0) 01/18/17 13:48 Ur Leukocyte Esterase Neg (Negative) 01/18/17 13:48 Urine WBC (Auto) 3.0 /HPF (0.0-6.0) 01/18/17 13:48 Urine RBC (Auto) < 1.0 /HPF (0.0-6.0) 01/18/17 13:48 U Epithel Cells (Auto) < 1.0 /HPF (0-13.0) 01/18/17 03:19 Urine Bacteria (Auto) 1+ /HPF (Negative) 01/18/17 13:48 Ur Transition Epith Cell < 1 /HPF 01/18/17 13:48 Granular Casts 2 /LPF 01/18/17 13:48 Urine Mucus Few /HPF 01/18/17 13:48 Urine Osmolality 310 Mosm/kg 01/18/17 13:48 Urine Creatinine 36.1 mg/dL (0.1-20.0) H 01/18/17 13:48 Urine Microalbumin 1.2 mg/dL (0.1-34.0) 01/18/17 13:48 Microalb/Creat Ratio 33.2 ug/mg 01/18/17 13:48 Urine Sodium 90 mEq/L 01/18/17 13:48 Urine Total Protein 19 mg/dL (5-11.8) H 01/18/17 13:48
--- NOTE | 2017-01-22 10:45 | Progress Note ---
Assessment and Plan (1) Acute kidney failure with tubular necrosis Current Visit: Yes Status: Acute Plan to address problem: Acute kidney injury is most likely due to acute tubular necrosis in the setting of hypotension, cardiogenic vs septic shock. No significant proteinuria seen, do not suspect acute glomerular injury. CR stable at 1.2. Adequate urine output. Continue supportive care for LGORIA/ATN, avoid further nephrotoxins, NSAIDs, IV contrast, keep MAP >65mmHg (2) Shock Current Visit: Yes Status: Acute Plan to address problem: Hypovolemic vs septic vs cardiogenic. V/Q scan is negative for PE, venous duplex negative for DVT b/l. EKG shows SR w/ premature atrial complexes. awaiting Echocardiogram. Off pressers. BP improved. (3) Syncope Current Visit: Yes Status: Acute Qualifiers: Syncope type: unspecified Encounter type: E Qualified Code(s): R55 - Syncope and collapse Plan to address problem: syncope w/u as per primary attending. (5) Anemia, chronic disease Current Visit: Yes Status: Acute Plan to address problem: Iron deficiency, start po iron supplementation. Hgb decreased to 7.7 today, recheck in am. Will transfuse for Hgb <7 (6) Obstructive sleep apnea on CPAP Current Visit: Yes Status: Acute Plan to address problem: Mx per pulmonary services Subjective Date of service: 01/22/17 Interval history: No SOB/CP Objective - Exam Narrative Exam: General appearance: well-developed, well-nourished, appears stated age EENT: ATNC, PERRL, mucous membranes moist Neck: no JVD, supple neck Respiratory: Present: Clear to Ascultation, no wheezing Cardiology: regular, S1S2 WNL Gastrointestinal: normal, normoactive bowel sounds, no organomegally Integumentary: no rash, other (no edema ) Neurologic: no focal deficit, alert and oriented x3, strength 5/5, CN 3-12 intact Psychiatric: mood/affect appropriate, cooperative - Vital Signs Vital signs: Vital Signs - 12hr 01/21/17 01/22/17 23:20 07:30 Temperature 99.4 F 99.3 F Pulse Rate [ 98 H 94 H Left] Respiratory 20 20 Rate Blood Pressure 119/72 116/58 O2 Sat by Pulse 98 Oximetry - Lab 01/22/17 06:02 01/22/17 06:02 Most recent lab results Calcium 8.9 mg/dL (8.4-10.2) 01/22/17 06:02 Urine Creatinine 36.1 mg/dL (0.1-20.0) H 01/18/17 13:48 Urine Sodium 90 mEq/L 01/18/17 13:48 Urine Total Protein 19 mg/dL (5-11.8) H 01/18/17 13:48
--- NOTE | 2017-01-22 12:31 | Event Note ---
Date: 01/22/17
[2017-01-23 05:18] LABS: Anion Gap 15 mmol/L; Blood Urea Nitrogen 15 mg/dL (9-20); Calcium 8.7 mg/dL (8.4-10.2); Carbon Dioxide 24 mmol/L (22-30); Chloride 102.9 mmol/L (98-107); Glucose 94 mg/dL (75-100); Potassium 3.8 mmol/L (3.6-5.0); Sodium 138 mmol/L (137-145)
[2017-01-23 07:01] LABS: Basophils % (Auto) 0.8 % (0.0-1.8); Eosinophils % (Auto) 5.5 % (0.0-4.3); Hematocrit 22.7 % (35.5-45.6); Hemoglobin 7.3 gm/dl (11.8-15.2); Mean Corpuscular HGB Conc 32 % (32-34); Mean Corpuscular Hemoglobin 27 pg (28-32); Mean Corpuscular Volume 83 fl (84-94); Platelet Count 308 K/mm3 (140-440); Red Blood Count 2.74 M/mm3 (3.65-5.03); Red Cell Distribution Width 17.7 % (13.2-15.2); White Blood Count 8.1 K/mm3 (4.5-11.0)
[2017-01-23] MEDS: HEPARIN SUB-Q SCH ×3 (07:16→21:01)
--- NOTE | 2017-01-23 07:34 | Vascular Lab Report ---
CAROTID DUPLEX STUDY: RIGHT PSVEDV CCA PROX:[id number] CCA DIST:[id number] ICA PROX: 9220 ICA MID: 8031 ICA DIST: 9038 ECA: 28946 VERT: 60 18 LEFT PSVEDV CCA PROX:86040 CCA DIST:23540 ICA PROX:28984 ICA MID:87526 ICA DIST:62559 ECA: 64004 VERT: 87 20 REASON FOR EXAM: Carotid artery stenosis/syncope. COMMENTS ON THE RIGHT: Doppler frequency analysis is consistent with 16 to 49 percent diameter reduction of the internal carotid artery. Minimal amount of plaque is seen. The common carotid artery is patent. The external carotid artery is patent. The vertebral artery has antegrade flow. COMMENTS ON THE LEFT: Doppler frequency analysis is consistent with 16 to 49 percent diameter reduction of the internal carotid artery. Minimal amount of plaque is seen. The common carotid artery is patent. The external carotid artery is patent. The vertebral artery has antegrade flow. IMPRESSION: Less than 50% diameter reduction in the internal carotid arteries bilaterally. Consider repeat carotid artery duplex in 12 months.
[2017-01-23] MEDS: NACL 0.9% 1000 ML 1,000 ML IV SCH ×2 (09:15→20:57)
[2017-01-23] MEDS: ZYLOPRIM PO SCH (09:16)
[2017-01-23] MEDS: PEPCID PO SCH (09:16)
--- NOTE | 2017-01-23 10:22 | Progress Note ---
Assessment and Plan - Patient Problems (1) Acute kidney failure with tubular necrosis Current Visit: Yes Status: Acute Plan to address problem: Kidney function is improving. Continue to monitor electrolytes and renal function periodically. Avoid potential nephrotoxins if possible (2) Acute gout of left foot Current Visit: Yes Status: Acute Qualifiers: Gout etiology: G Encounter type: E Plan to address problem: Give colchicine as needed. Avoid NSAIDs if possible (3) Anemia, chronic disease Current Visit: Yes Status: Acute Plan to address problem: Follow up Hgb (4) Obstructive sleep apnea on CPAP Current Visit: Yes Status: Acute Plan to address problem: CPap mask at home (5) Inability to walk Current Visit: No Status: Acute Plan to address problem: Physical therapy to help ambulation Subjective Date of service: 01/23/17 Principal diagnosis: acute renal failure Objective - Vital Signs Vital signs: Vital Signs - 12hr 01/23/17 01/23/17 00:00 08:45 Temperature 99.9 F H 98.5 F Pulse Rate [ 90 From Monitor] Pulse Rate [ 91 H Right] Respiratory 20 24 Rate Blood Pressure 112/57 Blood Pressure 115/66 [Left Arm] O2 Sat by Pulse 97 95 Oximetry - Lab 01/23/17 04:25 01/23/17 04:25 Most recent lab results Calcium 8.7 mg/dL (8.4-10.2) 01/23/17 04:25 Urine Creatinine 36.1 mg/dL (0.1-20.0) H 01/18/17 13:48 Urine Sodium 90 mEq/L 01/18/17 13:48 Urine Total Protein 19 mg/dL (5-11.8) H 01/18/17 13:48
--- NOTE | 2017-01-23 10:36 | Progress Note ---
Assessment and Plan Assessment and plan: 1. Shock. Resolved. Etiology is secondary to hypovolemia versus sepsis. No evidence of cardiogenic shock. Echocardiogram revealed Global left ventricular systolic function is normal with EF of 55%. Bilateral lower extremity Dopplers and VQ scan are negative. Etiology likely secondary to hypovolemia from dehydration. Continue IV fluid normal saline boluses as needed. Pressors have been weaned off. Blood cultures are negative. 2. Acute kidney injury/ATN. Acute kidney injury is most likely due to acute tubular necrosis in the setting of hypotension/shock. Continue IV fluid hydration and supportive care. Avoid nephrotoxins, NSAIDs and IV contrast. Follow-up BMP in the morning. Nephrology following. Creatinine has improved to 1.3 3. Vasomotor nephropathy. Etiology secondary to above. 4. Syncope. Etiology secondary to vasovagal episode on the commode and hypotension. 5. Anemia of chronic disease. Transfuse for hemoglobin less than 7. 6. Deconditioning. Patient states that he has generalized weakness and is unable to ambulate. PT evaluation pending. 7. Disposition. Patient may need rehabilitation placement. Await PT recommendations. - Patient Problems (1) Acute kidney failure with tubular necrosis Current Visit: Yes Status: Acute (2) Hypotension Current Visit: Yes Status: Acute Qualifiers: Hypotension type: unspecified hypotension type Trimester: T Qualified Code(s): I95.9 - Hypotension, unspecified (3) Renal failure Current Visit: Yes Status: Acute (4) Shock Current Visit: Yes Status: Acute (5) Syncope Current Visit: Yes Status: Acute Qualifiers: Syncope type: unspecified Encounter type: E Qualified Code(s): R55 - Syncope and collapse History Interval history: 61-year-old male who presented through the emergency department with diagnosis of syncope and refractory hypotension previously requiring pressors. Patient is now off pressors and normotensive on the floor. No new issues overnight. However, nursing and patient report inability to ambulate. Hospitalist Physical - Constitutional Vitals: Temp Pulse Resp BP Pulse Ox 98.5 F 90 24 115/66 95 01/23/17 08:45 01/23/17 08:45 01/23/17 08:45 01/23/17 08:45 01/23/17 08:45 General appearance: Present: no acute distress, well-nourished - EENT Eyes: Present: PERRL, EOM intact ENT: hearing intact, clear oral mucosa, dentition normal - Neck Neck: Present: supple, normal ROM - Respiratory Respiratory effort: normal Respiratory: bilateral: CTA - Cardiovascular Rhythm: regular Heart Sounds: Present: S1 & S2. Absent: gallop, rub - Extremities Extremities: no ischemia, No edema, Full ROM - Abdominal General gastrointestinal: soft, non-tender, non-distended, normal bowel sounds - Integumentary Integumentary: Present: clear, warm, dry - Neurologic Neurologic: CNII-XII intact, moves all extremities Results - Labs CBC & Chem 7: 01/23/17 04:25 01/23/17 04:25 Labs: Laboratory Last Values WBC 8.1 K/mm3 (4.5-11.0) 01/23/17 04:25 RBC 2.74 M/mm3 (3.65-5.03) L 01/23/17 04:25 Hgb 7.3 gm/dl (11.8-15.2) L 01/23/17 04:25 Hct 22.7 % (35.5-45.6) L 01/23/17 04:25 MCV 83 fl (84-94) L 01/23/17 04:25 MCH 27 pg (28-32) L 01/23/17 04:25 MCHC 32 % (32-34) 01/23/17 04:25 RDW 17.7 % (13.2-15.2) H 01/23/17 04:25 Plt Count 308 K/mm3 (140-440) 01/23/17 04:25 Lymph % (Auto) 17.3 % (13.4-35.0) 01/23/17 04:25 [place] % (Auto) 11.5 % (0.0-7.3) H 01/23/17 04:25 Eos % (Auto) 5.5 % (0.0-4.3) H 01/23/17 04:25 Baso % (Auto) 0.8 % (0.0-1.8) 01/23/17 04:25 Lymph # 1.4 K/mm3 (1.2-5.4) 01/23/17 04:25 [place] # 0.9 K/mm3 (0.0-0.8) H 01/23/17 04:25 Eos # 0.4 K/mm3 (0.0-0.4) 01/23/17 04:25 Baso # 0.1 K/mm3 (0.0-0.1) 01/23/17 04:25 Seg Neutrophils % 64.9 % (40.0-70.0) 01/23/17 04:25 Seg Neutrophils # 5.2 K/mm3 (1.8-7.7) 01/23/17 04:25 PT 15.9 Sec. (12.2-14.9) H 01/17/17 15:11 INR 1.28 (0.87-1.13) H 01/17/17 15:11 APTT 30.1 Sec. (24.2-36.6) 01/17/17 15:11 D-Dimer 5112.91 ng/mlDDU (0-234) H 01/17/17 15:11 Sodium 138 mmol/L (137-145) 01/23/17 04:25 Potassium 3.8 mmol/L (3.6-5.0) 01/23/17 04:25 Chloride 102.9 mmol/L (98-107) 01/23/17 04:25 Carbon Dioxide 24 mmol/L (22-30) 01/23/17 04:25 Anion Gap 15 mmol/L 01/23/17 04:25 BUN 15 mg/dL (9-20) 01/23/17 04:25 Creatinine 1.2 mg/dL (0.8-1.5) 01/23/17 04:25 Estimated GFR > 60 ml/min 01/23/17 04:25 BUN/Creatinine Ratio 12.50 % 01/23/17 04:25 Glucose 94 mg/dL (75-100) 01/23/17 04:25 Calcium 8.7 mg/dL (8.4-10.2) 01/23/17 04:25 Iron 19 ug/dL (49-181) L 01/20/17 06:52 TIBC 99 mcg/dL (250-450) L 01/20/17 06:52 Ferritin 1332.0 ng/mL (13.0-400.0) H 01/20/17 06:52 Total Creatine Kinase 69 units/L (55-170) 01/17/17 15:11 CK-MB (CK-2) 1.4 ng/mL (0.0-4.0) 01/17/17 15:11 CK-MB (CK-2) Rel Index 2.0 (0-4) 01/17/17 15:11 Troponin T 0.056 ng/mL (0.00-0.029) H D 01/19/17 13:50 NT-Pro-B Natriuret Pep 478.5 pg/mL (0-900) 01/17/17 15:11 Triglycerides 55 mg/dL (2-149) 01/17/17 15:11 Cholesterol 100 mg/dL (50-199) 01/17/17 15:11 LDL Cholesterol Direct 47 mg/dL (50-130) L 01/17/17 15:11 HDL Cholesterol 42 mg/dL (40-59) 01/17/17 15:11 Cholesterol/HDL Ratio 2.38 % 01/17/17 15:11 TSH 2.860 mlU/mL (0.270-4.200) 01/17/17 15:11 Urine Color Straw (Yellow) 01/18/17 13:48 Urine Turbidity Clear (Clear) 01/18/17 13:48 Urine pH 5.0 (5.0-7.0) 01/18/17 13:48 Ur Specific [place] 1.005 (1.003-1.030) 01/18/17 13:48 Urine Protein <15 mg/dl mg/dL (Negative) 01/18/17 13:48 Urine Glucose (UA) >=500 mg/dL (Negative) 01/18/17 13:48 Urine Ketones Neg mg/dL (Negative) 01/18/17 13:48 Urine Blood Mod (Negative) 01/18/17 13:48 Urine Nitrite Neg (Negative) 01/18/17 13:48 Urine Bilirubin Neg (Negative) 01/18/17 13:48 Urine Urobilinogen < 2.0 mg/dL (<2.0) 01/18/17 13:48 Ur Leukocyte Esterase Neg (Negative) 01/18/17 13:48 Urine WBC (Auto) 3.0 /HPF (0.0-6.0) 01/18/17 13:48 Urine RBC (Auto) < 1.0 /HPF (0.0-6.0) 01/18/17 13:48 U Epithel Cells (Auto) < 1.0 /HPF (0-13.0) 01/18/17 03:19 Urine Bacteria (Auto) 1+ /HPF (Negative) 01/18/17 13:48 Ur Transition Epith Cell < 1 /HPF 01/18/17 13:48 Granular Casts 2 /LPF 01/18/17 13:48 Urine Mucus Few /HPF 01/18/17 13:48 Urine Osmolality 310 Mosm/kg 01/18/17 13:48 Urine Creatinine 36.1 mg/dL (0.1-20.0) H 01/18/17 13:48 Urine Microalbumin 1.2 mg/dL (0.1-34.0) 01/18/17 13:48 Microalb/Creat Ratio 33.2 ug/mg 01/18/17 13:48 Urine Sodium 90 mEq/L 01/18/17 13:48 Urine Total Protein 19 mg/dL (5-11.8) H 01/18/17 13:48
[2017-01-23] MEDS: COLCRYS PO SCH ×2 (16:34→21:01)
[2017-01-24] MEDS: HEPARIN SUB-Q SCH ×2 (05:33→14:23)
[2017-01-24] MEDS: NACL 0.9% 1000 ML 1,000 ML IV SCH (07:29)
[2017-01-24 07:38] LABS: Basophils % (Auto) 0.8 % (0.0-1.8); Eosinophils % (Auto) 6.2 % (0.0-4.3); Hemoglobin 7.1 gm/dl (11.8-15.2); Mean Corpuscular HGB Conc 32 % (32-34); Mean Corpuscular Hemoglobin 27 pg (28-32); Mean Corpuscular Volume 83 fl (84-94); Platelet Count 315 K/mm3 (140-440); Red Blood Count 2.66 M/mm3 (3.65-5.03); Red Cell Distribution Width 17.5 % (13.2-15.2); White Blood Count 7.2 K/mm3 (4.5-11.0)
[2017-01-24 07:44] LABS: Anion Gap 14 mmol/L; Blood Urea Nitrogen 12 mg/dL (9-20); Calcium 8.8 mg/dL (8.4-10.2); Carbon Dioxide 24 mmol/L (22-30); Chloride 104.9 mmol/L (98-107); Glucose 88 mg/dL (75-100); Potassium 3.9 mmol/L (3.6-5.0); Sodium 139 mmol/L (137-145)
--- NOTE | 2017-01-24 08:01 | Progress Note ---
Assessment and Plan Assessment and plan: 1. Shock. Resolved. Etiology is secondary to hypovolemia versus sepsis. No evidence of cardiogenic shock. Echocardiogram revealed Global left ventricular systolic function is normal with EF of 55%. Bilateral lower extremity Dopplers and VQ scan are negative. Etiology likely secondary to hypovolemia from dehydration. Continue IV fluid normal saline boluses as needed. Pressors have been weaned off. Blood cultures are negative. 2. Acute kidney injury/ATN. Acute kidney injury is most likely due to acute tubular necrosis in the setting of hypotension/shock. Continue IV fluid hydration and supportive care. Avoid nephrotoxins, NSAIDs and IV contrast. Follow-up BMP in the morning. Nephrology following. Creatinine has improved to 1.3 3. Vasomotor nephropathy. Etiology secondary to above. 4. Syncope. Etiology secondary to vasovagal episode on the commode and hypotension. 5. Anemia of chronic disease. Transfuse 1 unit of PRBCs given the tachycardia and recent hypotension. 6. Deconditioning. Patient states that he has generalized weakness and is unable to ambulate. PT evaluation pending. 7. Disposition. Patient may need rehabilitation placement. Await PT recommendations. - Patient Problems (1) Acute kidney failure with tubular necrosis Current Visit: Yes Status: Acute (2) Hypotension Current Visit: Yes Status: Acute Qualifiers: Hypotension type: unspecified hypotension type Trimester: T Qualified Code(s): I95.9 - Hypotension, unspecified (3) Renal failure Current Visit: Yes Status: Acute (4) Shock Current Visit: Yes Status: Acute (5) Syncope Current Visit: Yes Status: Acute Qualifiers: Syncope type: unspecified Encounter type: E Qualified Code(s): R55 - Syncope and collapse History Interval history: 61-year-old male who presented through the emergency department with diagnosis of syncope and refractory hypotension previously requiring pressors. Patient is now off pressors and normotensive on the floor. No new issues overnight. However, nursing and patient report inability to ambulate. Hospitalist Physical - Constitutional Vitals: Temp Pulse Resp BP Pulse Ox 99.0 F 86 16 113/68 99 01/24/17 07:32 01/24/17 07:32 01/24/17 07:32 01/24/17 07:32 01/24/17 07:32 General appearance: Present: no acute distress, well-nourished - EENT Eyes: Present: PERRL, EOM intact ENT: hearing intact, clear oral mucosa, dentition normal - Neck Neck: Present: supple, normal ROM - Respiratory Respiratory effort: normal Respiratory: bilateral: CTA - Cardiovascular Rhythm: regular Heart Sounds: Present: S1 & S2. Absent: gallop, rub - Extremities Extremities: no ischemia, No edema, Full ROM - Abdominal General gastrointestinal: soft, non-tender, non-distended, normal bowel sounds - Integumentary Integumentary: Present: clear, warm, dry - Neurologic Neurologic: CNII-XII intact, moves all extremities Results - Labs CBC & Chem 7: 01/24/17 Unknown 01/24/17 Unknown Labs: Laboratory Last Values WBC 7.2 K/mm3 (4.5-11.0) 01/24/17 Unknown RBC 2.66 M/mm3 (3.65-5.03) L 01/24/17 Unknown Hgb 7.1 gm/dl (11.8-15.2) L 01/24/17 Unknown Hct 22.0 % (35.5-45.6) L 01/24/17 Unknown MCV 83 fl (84-94) L 01/24/17 Unknown MCH 27 pg (28-32) L 01/24/17 Unknown MCHC 32 % (32-34) 01/24/17 Unknown RDW 17.5 % (13.2-15.2) H 01/24/17 Unknown Plt Count 315 K/mm3 (140-440) 01/24/17 Unknown Lymph % (Auto) 17.2 % (13.4-35.0) 01/24/17 Unknown [place] % (Auto) 11.6 % (0.0-7.3) H 01/24/17 Unknown Eos % (Auto) 6.2 % (0.0-4.3) H 01/24/17 Unknown Baso % (Auto) 0.8 % (0.0-1.8) 01/24/17 Unknown Lymph # 1.2 K/mm3 (1.2-5.4) 01/24/17 Unknown [place] # 0.8 K/mm3 (0.0-0.8) 01/24/17 Unknown Eos # 0.4 K/mm3 (0.0-0.4) 01/24/17 Unknown Baso # 0.1 K/mm3 (0.0-0.1) 01/24/17 Unknown Seg Neutrophils % 64.2 % (40.0-70.0) 01/24/17 Unknown Seg Neutrophils # 4.6 K/mm3 (1.8-7.7) 01/24/17 Unknown PT 15.9 Sec. (12.2-14.9) H 01/17/17 15:11 INR 1.28 (0.87-1.13) H 01/17/17 15:11 APTT 30.1 Sec. (24.2-36.6) 01/17/17 15:11 D-Dimer 5112.91 ng/mlDDU (0-234) H 01/17/17 15:11 Sodium 139 mmol/L (137-145) 01/24/17 Unknown Potassium 3.9 mmol/L (3.6-5.0) 01/24/17 Unknown Chloride 104.9 mmol/L (98-107) 01/24/17 Unknown Carbon Dioxide 24 mmol/L (22-30) 01/24/17 Unknown Anion Gap 14 mmol/L 01/24/17 Unknown BUN 12 mg/dL (9-20) 01/24/17 Unknown Creatinine 1.1 mg/dL (0.8-1.5) 01/24/17 Unknown Estimated GFR > 60 ml/min 01/24/17 Unknown BUN/Creatinine Ratio 10.90 % 01/24/17 Unknown Glucose 88 mg/dL (75-100) 01/24/17 Unknown Calcium 8.8 mg/dL (8.4-10.2) 01/24/17 Unknown Iron 19 ug/dL (49-181) L 01/20/17 06:52 TIBC 99 mcg/dL (250-450) L 01/20/17 06:52 Ferritin 1332.0 ng/mL (13.0-400.0) H 01/20/17 06:52 Total Creatine Kinase 69 units/L (55-170) 01/17/17 15:11 CK-MB (CK-2) 1.4 ng/mL (0.0-4.0) 01/17/17 15:11 CK-MB (CK-2) Rel Index 2.0 (0-4) 01/17/17 15:11 Troponin T 0.056 ng/mL (0.00-0.029) H D 03/23/17 13:50 NT-Pro-B Natriuret Pep 478.5 pg/mL (0-900) 01/17/17 15:11 Triglycerides 55 mg/dL (2-149) 01/17/17 15:11 Cholesterol 100 mg/dL (50-199) 01/17/17 15:11 LDL Cholesterol Direct 47 mg/dL (50-130) L 01/17/17 15:11 HDL Cholesterol 42 mg/dL (40-59) 01/17/17 15:11 Cholesterol/HDL Ratio 2.38 % 01/17/17 15:11 TSH 2.860 mlU/mL (0.270-4.200) 01/17/17 15:11 Urine Color Straw (Yellow) 01/18/17 13:48 Urine Turbidity Clear (Clear) 01/18/17 13:48 Urine pH 5.0 (5.0-7.0) 01/18/17 13:48 Ur Specific [place] 1.005 (1.003-1.030) 01/18/17 13:48 Urine Protein <15 mg/dl mg/dL (Negative) 01/18/17 13:48 Urine Glucose (UA) >=500 mg/dL (Negative) 01/18/17 13:48 Urine Ketones Neg mg/dL (Negative) 01/18/17 13:48 Urine Blood Mod (Negative) 01/18/17 13:48 Urine Nitrite Neg (Negative) 01/18/17 13:48 Urine Bilirubin Neg (Negative) 01/18/17 13:48 Urine Urobilinogen < 2.0 mg/dL (<2.0) 01/18/17 13:48 Ur Leukocyte Esterase Neg (Negative) 01/18/17 13:48 Urine WBC (Auto) 3.0 /HPF (0.0-6.0) 01/18/17 13:48 Urine RBC (Auto) < 1.0 /HPF (0.0-6.0) 01/18/17 13:48 U Epithel Cells (Auto) < 1.0 /HPF (0-13.0) 01/18/17 03:19 Urine Bacteria (Auto) 1+ /HPF (Negative) 01/18/17 13:48 Ur Transition Epith Cell < 1 /HPF 01/18/17 13:48 Granular Casts 2 /LPF 01/18/17 13:48 Urine Mucus Few /HPF 01/18/17 13:48 Urine Osmolality 310 Mosm/kg 01/18/17 13:48 Urine Creatinine 36.1 mg/dL (0.1-20.0) H 01/18/17 13:48 Urine Microalbumin 1.2 mg/dL (0.1-34.0) 01/18/17 13:48 Microalb/Creat Ratio 33.2 ug/mg 01/18/17 13:48 Urine Sodium 90 mEq/L 01/18/17 13:48 Urine Total Protein 19 mg/dL (5-11.8) H 01/18/17 13:48
--- NOTE | 2017-01-24 08:28 | Progress Note ---
Assessment and Plan - Patient Problems (1) Acute kidney failure with tubular necrosis Current Visit: Yes Status: Acute Plan to address problem: Kidney function is improving. Continue to monitor electrolytes and renal function periodically. Avoid potential nephrotoxins if possible (2) Acute gout of left foot Current Visit: Yes Status: Acute Qualifiers: Gout etiology: G Encounter type: E Plan to address problem: Improving with colchicine. Avoid NSAIDs if possible (3) Anemia, chronic disease Current Visit: Yes Status: Acute Plan to address problem: Check stool for occult blood. Type and screen. Follow up Hgb. May need packed red blood cell transfusions if continues to decrease. Defer to primary attending (4) Obstructive sleep apnea on CPAP Current Visit: Yes Status: Acute Plan to address problem: CPap mask at home (5) Inability to walk Current Visit: No Status: Acute Plan to address problem: Physical therapy to help ambulation Subjective Date of service: 01/24/17 Principal diagnosis: Hypotension; Syncope; GLORIA Interval history: Patient seen lying in bed. Pain in his foot is better. Started colchicine yesterday. Objective - Exam Narrative Exam: [Obese Middle-aged -[place] male lying in bed] in no acute distress HEENT [normocephalic atraumatic, pupils equal reactive to light, pink, clear oropharynx] Neck [supple, no thyromegaly no jugular venous distention] CVS [S1-S2 regular rate rhythm without murmur, rub or gallop] Chest [clear to auscultation] Abdomen [soft nondistended nontender no organomegaly no bruit bowel sounds present] Extremities [no edema, tenderness foot improved] Neuro [awake, alert oriented x3 ] - Vital Signs Vital signs: Vital Signs - 12hr 01/23/17 01/23/17 01/24/17 22:00 23:00 07:32 Temperature 98.1 F 99.0 F Pulse Rate [ 88 86 Apical] Pulse Rate [ 93 H From Monitor] Respiratory 20 18 16 Rate Blood Pressure 130/74 113/68 [Left Arm] O2 Sat by Pulse 100 99 Oximetry - Lab 01/24/17 Unknown 01/24/17 Unknown Most recent lab results Calcium 8.8 mg/dL (8.4-10.2) 01/24/17 Unknown Urine Creatinine 36.1 mg/dL (0.1-20.0) H 01/18/17 13:48 Urine Sodium 90 mEq/L 01/18/17 13:48 Urine Total Protein 19 mg/dL (5-11.8) H 01/18/17 13:48
[2017-01-24] MEDS: ZYLOPRIM PO SCH (10:13)
[2017-01-24] MEDS: COLCRYS PO SCH (10:14)
[2017-01-24] MEDS: PEPCID PO SCH (10:14)
[2017-01-24] MEDS ORDERED: TYLENOL PO PRN (10:17)
[2017-01-24] MEDS ORDERED: NACL 0.9% 500 ML 500 ML IV ONE (11:00)
--- NOTE | 2017-01-24 12:36 | Discharge Summary ---
Providers - Providers Date of Admission: 01/17/17 23:17 Date of discharge: 01/24/17 Attending physician: GABINO LOJA 01/18/17 00:49 Consult to Physician [CONS] Routine Consulting Provider: YOKO MCCARTHY Reason For Exam: GLORIA Place consult to:: answering service Notified:: yes Time called:: 06:21 01/18/17 00:51 Consult to Physician [CONS] Routine Consulting Provider: NADIA CARTWRIGHT Reason For Exam: hypotension for ICU admission Place consult to:: answering service Notified:: yes Time called:: 23:25 Comment:: called on 01-17-17 @ 2325 01/18/17 01:38 Consult to Physician [CONS] Urgent Consulting Provider: NADIA CARTWRIGHT Reason For Exam: Nicardipine drip/ccu admit Place consult to:: answering service Notified:: yes 01/19/17 12:28 psychiatry consult [Consult to Mental Health] [CONS] Routine Reason For Exam: Depression Place consult to:: Psychiatrist Notified:: yes 01/21/17 11:15 Physical Therapy Evaluation and Treat [CONS] Routine Comment: Reason For Exam: ambulation Primary care physician: RUBBER [employer] HELPER Hospitalization Reason for admission: hypotension Condition: Serious Hospital course: This is a 61yo AAM with patient medical history of Hypertension, gout, who was BIBEMS on 01/18/17 after patient's sister found him on the floor unresponsive, it is reported that his eyes rolled in the back of his head but they always remained open but he was unresponsive to any family members talking to him. At one point they felt as if he stopped breathing so they put him on to the ground completely and started chest compressions. The patient regained consciousness after 1 minute of chest compression and was able to identify his family members and his girlfriend but said that he did not remember passing out. Since that time the patient just complained of feeling slightly weak and feeling dehydrated. In ER patient was found to be hypotensive with BP as low as 70/40s, requiring IV NS boluses and was initiated on levophed. Patient's labs showed signficantly elevated d-dimer >5000, however V/Q scan showed no evidence of acute PE. Pt was also found to be in acute renal failure with BUN/Cr elevated at 45/3.3mg/dl, for which renal consult is requested. His last Cr was 1.3mg/dl on previous hospitalization 01/04/17. Patient was continued with treatment of aggressive IV fluid hydration with eventual return of a creatinine back to baseline of 1.2. Patient remained on pressors until blood pressure stabilized and was weaned off. Patient was transferred to the floor. This also to be all secondary to hypovolemia, vasomotor nephropathy, acute kidney injury/18 in +/- sepsis. Echocardiogram revealed Global left ventricular systolic function is normal with EF of 55%. Bilateral lower extremity Dopplers and VQ scan are negative. Syncope was also related to above. This was also noted to have some anemia secondary to chronic disease. Patient received 1 unit of packed red blood cells. Patient was also evaluated by physical therapy and recommended for discharge home with home health PT. Patient was felt to have received maximal hospital benefit and can be discharged home. Dedicated discharge time 42 minutes. Disposition: DISCHARGED TO HOME OR SELFCARE - Discharge Diagnoses (1) Acute kidney failure with tubular necrosis Status: Acute (2) Hypotension Status: Acute Qualifiers: Hypotension type: unspecified hypotension type Trimester: T Qualified Code(s): I95.9 - Hypotension, unspecified (3) Renal failure Status: Acute (4) Shock Status: Acute (5) Syncope Status: Acute Qualifiers: Syncope type: unspecified Encounter type: E Qualified Code(s): R55 - Syncope and collapse Core Measure Documentation - Palliative Care Palliative Care/ Comfort Measures: Not Applicable - Core Measures Any of the following diagnoses?: none Exam - Constitutional Vitals: Temp Pulse Resp BP Pulse Ox 99.0 F 86 16 113/68 99 01/24/17 07:32 01/24/17 07:32 01/24/17 07:32 01/24/17 07:32 01/24/17 07:32 General appearance: Present: no acute distress, well-nourished - EENT Eyes: Present: PERRL ENT: hearing intact, clear oral mucosa - Neck Neck: Present: supple, normal ROM - Respiratory Respiratory effort: normal Respiratory: bilateral: CTA - Cardiovascular Heart Sounds: Present: S1 & S2. Absent: rub, click - Extremities Extremities: pulses symmetrical, No edema Peripheral Pulses: within normal limits - Abdominal General gastrointestinal: Present: soft, non-tender, non-distended, normal bowel sounds Male genitourinary: Present: normal - Integumentary Integumentary: Present: clear, warm, dry - Musculoskeletal Musculoskeletal: gait normal, strength equal bilaterally - Psychiatric Psychiatric: appropriate mood/affect, intact judgment & insight - Neurologic Neurologic: CNII-XII intact, moves all extremities Plan Activity: no restrictions Weight Bearing Status: Weight Bear as Tolerated Diet: low fat, low cholesterol, low salt Special Instructions: physical therapy, home health RN Durable Medical Equipment Needed Upon Discharge: Walker-Rolling Follow up with: PRIMARY CAREMD [Primary Care Provider] - 3-5 Days YOKO MCCARTHY MD [Staff Physician] - 7 Days
[2017-01-24 16:14] VITALS: BP 116/70
[2017-01-24] MEDS ORDERED: TRIPLE ANTIBIOTIC TP ONE (17:00)
[2017-01-25] MEDS ORDERED: COLCRYS PO SCH (10:00)
== END 2017-01-24 17:44 | disposition home or self-care (01) | DRG 871 ==
LOC: ED 14:05 → CC1 23:17 → 3A 01-20 17:50
PROVIDERS: ADMIT Internal Medicine; ATTEND Hospitalist
PROC: 3E0234Z Introduction of Serum, Toxoid and Vaccine into Muscle, Percutaneous Approach (ICD-10-PCS; 2017-01-18)
PROC: 4A033R1 Measurement of Arterial Saturation, Peripheral, Percutaneous Approach (ICD-10-PCS; 2017-01-19)
PROC: 30233N1 Transfusion of Nonautologous Red Blood Cells into Peripheral Vein, Percutaneous Approach (ICD-10-PCS; principal; 2017-01-24)
DX: A41.9 Sepsis, unspecified organism (principal); N17.0 Acute kidney failure with tubular necrosis; R57.1 Hypovolemic shock; Z68.41 Body mass index [BMI] 40.0-44.9, adult; I10 Essential (primary) hypertension; E11.9 Type 2 diabetes mellitus without complications; M19.90 Unspecified osteoarthritis, unspecified site; G47.33 Obstructive sleep apnea (adult) (pediatric); G89.29 Other chronic pain; M54.9 Dorsalgia, unspecified; I95.9 Hypotension, unspecified; D63.8 Anemia in other chronic diseases classified elsewhere; E66.01 Morbid (severe) obesity due to excess calories; M10.072 Idiopathic gout, left ankle and foot; R26.2 Difficulty in walking, not elsewhere classified; Z88.0 Allergy status to penicillin; Z91.19 Patient's noncompliance with other medical treatment and regimen; Z23 Encounter for immunization
CPT/HCPCS: 36415; 71010; 78582; 80048; 80061; 81001; 82043; 82533; 82550; 82553; 82728; 83550; 83880; 83935; 84156; 84300; 84443; 84484; 85025; 85379; 85610; 85730; 86850; 86900; 86901; 86920; 87040; 90686; 90732; 93005; 93010; 93306; 93880; 93970; 94660; 96360; 96361; 96372; A6250; A9540; A9558; J1170; J1644; J2405; J2997; J7030; J7040; P9016